=== PATIENT | female | born 1980 | race Caucasian/White ===

== ENCOUNTER → 2019-12-04 18:00 | Outpatient (CLI) | payer MEDICARE, MEDICAID, SELFPAY | PROVIDERS: Visit Provider Nurse Practitioner Family | DX: N39.0 Urinary tract infection, site not specified (principal) | CPT/HCPCS: 87086; 87088; 87186 ==

== ENCOUNTER 2020-07-10 18:34 | Emergency (ER) | payer MEDICARE, MEDICAID, SELFPAY ==
[2020-07-10 18:47] VITALS: BP 106/74; PULSE 95; RESP 15; O2SAT 97; BMI 51.5
[2020-07-10 19:41] VITALS: BP 106/74; PULSE 95; RESP 15; TEMP 36.7; O2SAT 99; BMI 51.2
--- NOTE | 2020-07-10 19:53 | HMH.EDUTC ---
[facility] [place] Disposition Clinical Impression: Viral syndrome, Encounter for laboratory testing for COVID-19 virus Disposition: Home, Self-Care Condition on Discharge: Good Instructions: Sore Throat, DI for Cough -- Adult, DI for Fever (Symptom) -- Adult, Preventing the Spread of Coronavirus Discharge Instructions Additional Instructions: *Monitor Temp, Over the counter Motrin or Tylenol as directed/as needed Tylenol every 4 hours and Motrin every 6 hours (as long as your family doctor has told you that you can take it) for fever or pain. and straight to ER if unable to lower temp less than 101.0 after medication given *Warm salt water gargles may help to soothe the throat *Throat Lozenges *Warm fluids like tea with honey may help to soothe the throat *Sleep elevated *Humidifier/Vaporizer *Use your inhalers as prescribed Return if needed Follow up IMMEDIATELY for new or worsening symptoms or no Noticeable improvement over the next 48-72 hours. 911 for difficulty breathing or swallowing You was tested for today for COVID19 your test result should be back later this evening, you may call back later this evening to see if your test results are back and the result You was given a handout with instructions for Self Quarantine and Self isolation for while you wait on test results and what to do if they are positive Referrals: Shanda Weaver [Primary Care Provider] - As needed Time of Disposition: 20:27 Medical Decision Making - [place] Inquiry Pt receiving controlled substance: No [place] was queried for this patient: No Vital Signs: 07/10/20 18:47 07/10/20 19:41 Temperature 98.1 F Temperature Source Oral Pulse Rate [Right Brachial] 95 H 95 H Respiratory Rate 15 15 Blood Pressure [Right Arm] 106/74 L 106/74 L Blood Pressure Mean [Right Arm] 84 84 Blood Pressure Source [Right Arm] Automatic Cuff Automatic Cuff Blood Pressure Position [Right Arm] Sitting Sitting 02 Sat by Pulse Oximetry 97 99 Oxygen Delivery Method Room Air Room Air [facility] HPI - General Stated complaint: Headache, sob, cough, sore throat Time Seen by Provider: 07/10/20 19:53 Mode of Arrival: Ambulatory Source of Information: Patient Limitations: No Limitations Description of Symptoms (Recalled from Triage Doc. by RN): sore throat and fever x 2 days; diarrhea and cough, shortness of air; pt expresses desire to be tested for covid HEENT Symptoms (Recalled from RN notes): Yes Resp Symptoms (Recalled from RN notes): No Skin Symptoms (Recalled from RN notes): No MS Symptoms (Recalled from RN notes): No Functional Status (Recalled from RN notes): wnl - History of Present Illness Provider Complaint: Patient states that she hasnt been feeling well for a couple of days States that she has been having cough, nasal congestion, sore throat fever diarrhea and body aches along with feeling SOA at times with coughing State that she has a history of COPD and Asthma and not sure if that may be causing her shortness of air States that she is concerned and wanted to be tested for COVID since boyfriend is having similar symptoms - Related Data Previous Rx's Medication Instructions Recorded cephalexin 500 mg capsule 500 mg PO BID 10 Days #20 cap 12/04/19 ondansetron HCl 4 mg tablet 4 mg PO Q8H PRN #14 tab 12/04/19 Allergies Allergy/AdvReac Type Severity Reaction Status Date / Time Penicillins Allergy Verified 12/04/19 18:20 - Worker's Comp Is this a Worker's Comp case?: No [facility] History - Hepatitis A Screen Drug use history?: No High risk sexual behaviors?: No History of sexually transmitted infection?: No Currently employed?: No Childcare worker?: No Do you have indoor plumbing?: Yes Do you have electricity?: Yes Attestation statement:: This patient has been screened for Hepatitis A risk factors. I have reviewed the patient's past medical history: Yes Medical History: Reports:: Diabetes Mellitus Type 2 Other Surgeries: Yes: No Previous Surge
[2020-07-10 20:33] VITALS: BP 106/74; PULSE 95; RESP 15; TEMP 36.7; O2SAT 99
[2020-07-10 21:11] LABS: UTC Strep Screen (Rapid) Negative (Negative)
[2020-07-10 21:18] LABS: Adenovirus,PCR Not Detected (NotDetected); Bordetella Pertussis Not Detected (NotDetected); Chlamydophila Pneumoniae, PCR Not Detected (NotDetected); Coronavirus 19, PCR Not Detected (NotDetected); Coronavirus 229E Not Detected (NotDetected); Coronavirus NL63 Not Detected (NotDetected); Coronavirus OC43 Not Detected (NotDetected); Coronovirus HKU1,PCR Not Detected (NotDetected); Human Metapneumovirus Not Detected (NotDetected); Influenza A, PCR Not Detected (NotDetected); Influenza AH1, 2009 Not Detected (NotDetected); Influenza AH1, PCR Not Detected (NotDetected); Influenza AH3,PCR Not Detected (NotDetected); Influenza B, PCR Not Detected (NotDetected); Mycoplasma Pneumoniae, PCR Not Detected (NotDetected); Parainfluenza 1, PCR Not Detected (NotDetected); Parainfluenza 2, PCR Not Detected (NotDetected); Parainfluenza 3, PCR Not Detected (NotDetected); Parainfluenza 4, PCR Not Detected (NotDetected); Respiratory Syncytial Virus Not Detected (NotDetected); Rhinovirus/Enterovirus Not Detected (NotDetected)
== END 2020-07-10 20:34 | disposition home or self-care (01) ==
PROVIDERS: Nurse Practitioner; Emergency Provider Emergency Medicine; PCP Family Medicine
DX: Z20.828 Contact with and (suspected) exposure to other viral communicable diseases (principal); B34.9 Viral infection, unspecified
CPT/HCPCS: G0463; 87581; 87633; 87798; 87880; 99202; U0003

== ENCOUNTER 2021-07-09 18:07 | Emergency (ER) | payer MEDICARE, SELFPAY ==
[2021-07-09 18:15] VITALS: PULSE 78; RESP 16; TEMP 37; O2SAT 100; BMI 45.4
[2021-07-09 18:18] VITALS: BP 138/89; PULSE 78; RESP 16; TEMP 37; O2SAT 100; BMI 45.2
--- NOTE | 2021-07-09 18:34 | HMH.EDUTC ---
[facility] Clinical Impression: Otitis media Qualifiers: Otitis media type: suppurative Chronicity: acute Laterality: left Recurrence: non-recurrent Spontaneous tympanic membrane rupture: without spontaneous rupture Qualified Code(s): H66.002 - Acute suppurative otitis media without spontaneous rupture of ear drum, left ear Disposition: Home, Self-Care Condition on Discharge: Good Instructions: Middle Ear Infections (Alternative Therapy) Additional Instructions: Start antibiotic as soon as possible and be sure to take as ordered for full length of time even though he should start feeling better in 24-48 hours. Tylenol or Motrin as needed for pain or fever Encourage fluids, water, Gatorade, Powerade, Pedialyte if infant/toddler/child Warm compresses often helps when placed over ear Return immediately for new or worsening symptoms no noticeable improvement in 48-72 hours and in 10-14 days to ensure the ears are return to baseline. Follow-up with primary care Prescriptions: cephALEXin [Cephalexin 500mg Tab] 500 mg PO BID 7 Days #14 tab Transmission Status: Pending to [facility] Referrals: Shanda Hardy [Primary Care Provider] - Time of Disposition: 18:44 Medical Decision Making - [place] Inquiry Pt receiving controlled substance: No Vital Signs: 07/09/21 18:15 07/09/21 18:18 Temperature 98.6 F 98.6 F Temperature Source Oral Oral Pulse Rate [Right] 78 78 Respiratory Rate 16 16 Blood Pressure [Right Arm] 138/89 Blood Pressure Mean [Right Arm] 105 Blood Pressure Source [Right Arm] Automatic Cuff Blood Pressure Position [Right Arm] Sitting 02 Sat by Pulse Oximetry 100 100 Oxygen Delivery Method Room Air [facility] HPI - General Chief complaint: Urgent [facility] Stated complaint: dental surgery 06/30 ear pain left ear Time Seen by Provider: 07/09/21 18:34 Mode of Arrival: Ambulatory Source of Information: Patient Limitations: No Limitations Description of Symptoms (Recalled from Triage Doc. by RN): pt advises she thinks she has a left ear infection. She had two teeth pulled on06/30 HEENT Symptoms (Recalled from RN notes): Yes (earache) Resp Symptoms (Recalled from RN notes): No Skin Symptoms (Recalled from RN notes): No MS Symptoms (Recalled from RN notes): No Functional Status (Recalled from RN notes): n/a - History of Present Illness Provider Complaint: 40 yr old female presnets for left ear pain. pt states she had two teeth pulled on the 12th and now is having ear pain. hx of ear infections - Related Data Previous Rx's Medication Instructions Recorded cephalexin 500 mg capsule 500 mg PO BID 10 Days #20 cap 12/04/19 ondansetron HCl 4 mg tablet 4 mg PO Q8H PRN #14 tab 12/04/19 cephALEXin [Cephalexin 500mg Tab] 500 mg PO BID 7 Days #14 tab 07/09/21 Allergies Allergy/AdvReac Type Severity Reaction Status Date / Time Penicillins Allergy Verified 12/04/19 18:20 - Worker's Comp Is this a Worker's Comp case?: No [facility] History - Hepatitis A Screen Drug use history?: No High risk sexual behaviors?: No History of sexually transmitted infection?: No Currently employed?: No Childcare worker?: No Do you have indoor plumbing?: Yes Do you have electricity?: Yes Attestation statement:: This patient has been screened for Hepatitis A risk factors. I have reviewed the patient's past medical history: Yes Medical History: Reports:: Diabetes Mellitus Type 2 Other Surgeries: Yes: No Previous Surgery Amputation: No Fractures: No - Social History Smoking Status: Current every day smoker # Packs/Day (cigarettes): 1 Alcohol Intake: never Substance Use Type: methamphetamine Occupational Status: other Housing: apartment Household Members: other Family Hx:: No significant family history ROS Obtained: Yes Systems reviewed as appropriate & no additional complaints - Constitutional Constitutional: Reports system reviewed and no additional complaints, except as Sudheer krishnan
[2021-07-09 18:52] VITALS: BP 138/89; PULSE 78; RESP 16; TEMP 37; O2SAT 100
== END 2021-07-09 18:53 | disposition home or self-care (01) ==
PROVIDERS: Emergency Provider Nurse Practitioner Family; PCP Family Medicine
DX: H66.002 Acute suppurative otitis media without spontaneous rupture of ear drum, left ear (principal); E11.9 Type 2 diabetes mellitus without complications; F17.210 Nicotine dependence, cigarettes, uncomplicated
CPT/HCPCS: 99202; G0463

== ENCOUNTER 2021-10-11 17:35 | Emergency (ER) | payer MEDICARE, SELFPAY ==
[2021-10-11 18:52] VITALS: BP 126/60; PULSE 82; RESP 20; TEMP 36.8; O2SAT 99; BMI 44.6
[2021-10-11 18:55] LABS: UTC Influenza A Antigen Negative (Negative); UTC Influenza B Antigen Negative (Negative)
--- NOTE | 2021-10-11 19:01 | HMH.EDUTC ---
[facility] [place] Clinical Impression: Otitis media Qualifiers: Otitis media type: unspecified Laterality: left Qualified Code(s): H66.92 - Otitis media, unspecified, left ear Disposition: Home, Self-Care Condition on Discharge: Good Instructions: Middle Ear Infection, Cephalexin Additional Instructions: *Monitor Temp, Over the counter Motrin or Tylenol as directed/as needed Tylenol every 4 hours and Motrin every 6 hours (as long as your family doctor has told you that you can take it) for fever or pain. and straight to ER if unable to lower temp less than 101.0 after medication given *Warm salt water gargles may help to soothe the throat *Throat Lozenges *Warm fluids like tea with honey may help to soothe the throat *Sleep elevated *Humidifier/Vaporizer Follow up IMMEDIATELY for new or worsening symptoms or no Noticeable improvement over the next 48-72 hours. 911 for difficulty breathing or swallowing You were tested for today for COVID19 your test result should be back in the next 24-48 hours, you may check your results on the [facility] [employer] [facility] Portal if you have trouble logging on you may call [employer] support for assistance You was given a handout with instructions for Self Quarantine and Self isolation for while you wait on test results and what to do if they are positive Make sure to take your Vitamins Vit. C Vit D and Zinc if you can take them Prescriptions: cephALEXin [cephALEXin 500mg capsule*] 500 mg PO Q8H 7 Days #21 cap Transmission Status: Pending to [facility] Referrals: Shanda Weaver [Primary Care Provider] - As needed Time of Disposition: 19:15 Medical Decision Making - [place] Inquiry Pt receiving controlled substance: No [place] was queried for this patient: No Vital Signs: 10/11/21 18:52 Temperature 98.2 F Temperature Source Oral Pulse Rate [Left] 82 Respiratory Rate 20 Blood Pressure [Right Arm] 126/60 Blood Pressure Mean [Right Arm] 82 02 Sat by Pulse Oximetry 99 - Lab Data Lab results reviewed: Yes: I reviewed the patient's lab results. Lab Results 10/11/21 18:41: Influenza Type A Ag Negative, Influenza Type B Ag Negative Orders (Tests/Meds): ORDERS Category Date Time Status Covid-19 Nasal PCR ([facility]) Routine Lab 10/11/21 18:41 Ordered Medical Decision Narrative: patient states that she has taken cephalexin in the past without reactions or complication even though allergic to PCN [facility] HPI - General Stated complaint: sore throat,SOB,LADD,R ear Time Seen by Provider: 10/11/21 19:01 Mode of Arrival: Ambulatory Source of Information: Patient Limitations: No Limitations Description of Symptoms (Recalled from Triage Doc. by RN): PT C/O A COUGH, SORE THROAT, MIGRAINE, BODY ACHES AND LOSS OF TASTE. HEENT Symptoms (Recalled from RN notes): Yes (SORE THROAT, LOSS OF TASTE, LADD) Resp Symptoms (Recalled from RN notes): Yes (COUGH) Skin Symptoms (Recalled from RN notes): No MS Symptoms (Recalled from RN notes): No Functional Status (Recalled from RN notes): WNL - History of Present Illness Provider Complaint: Patient states that she has been having headache, scratchy throat, pain in both ears and loss her sense of taste this morning States that this evening she wasnt feeling any better so she came in to get checked and tested for COVID - Related Data Previous Rx's Medication Instructions Recorded cephalexin 500 mg capsule 500 mg PO BID 10 Days #20 cap 12/04/19 ondansetron HCl 4 mg tablet 4 mg PO Q8H PRN #14 tab 12/04/19 cephALEXin [Cephalexin 500mg Tab] 500 mg PO BID 7 Days #14 tab 07/09/21 cephALEXin [cephALEXin 500mg 500 mg PO Q8H 7 Days #21 cap 10/11/21 capsule*] Allergies Allergy/AdvReac Type Severity Reaction Status Date / Time Penicillins Allergy Verified 12/04/19 18:20 Sulfa (Sulfonamide Allergy Verified 10/11/21 18:58 Antibiotics) HAZAR Allergy Uncoded 10/11/21 18:58 - Worker's Comp Is this a Worker's Comp case?: No
[2021-10-11 19:24] VITALS: BP 126/60; PULSE 82; RESP 20; TEMP 36.8
== END 2021-10-11 19:26 | disposition home or self-care (01) ==
PROVIDERS: Emergency Provider Nurse Practitioner; PCP Family Medicine
DX: H66.92 Otitis media, unspecified, left ear (principal); J02.9 Acute pharyngitis, unspecified; Z20.822 Contact with and (suspected) exposure to COVID-19; F17.210 Nicotine dependence, cigarettes, uncomplicated; Z88.0 Allergy status to penicillin; Z88.2 Allergy status to sulfonamides
CPT/HCPCS: G0463; 87804; 99202; C9803; U0003; U0005

== ENCOUNTER 2022-07-10 18:47 | Inpatient (IN) | payer MEDICARE, MEDICAID, SELFPAY ==
[2022-07-10 18:47] VITALS: BP 140/119; PULSE 118; RESP 18; TEMP 37.2; O2SAT 97; BMI 49.2
--- NOTE | 2022-07-10 19:07 | XR_ITS ---
PROCEDURE INFORMATION: Exam: XR Chest Exam date and time: 07/10/2022 7:41 PM Age: 41 years old Clinical indication: Other: Epigastric pain; Additional info: Upper gastric pain TECHNIQUE: Imaging protocol: Radiologic exam of the chest. Views: 2 views. COMPARISON: CR XR CHEST 2V 10/14/2019 12:04 AM FINDINGS: Lungs: Unremarkable. No consolidation. Pleural spaces: Unremarkable. No pleural effusion. No pneumothorax. Heart/Mediastinum: Unremarkable. No cardiomegaly. Bones/joints: Unremarkable. IMPRESSION: No acute findings.
--- NOTE | 2022-07-10 19:07 | CT_ITS ---
PROCEDURE INFORMATION: Exam: CT Abdomen And Pelvis With Contrast Exam date and time: 07/10/2022 7:49 PM Age: 41 years old Clinical indication: Abdominal pain; Generalized; Additional info: Abdominal pain epigastric and generalized abdomen pain TECHNIQUE: Imaging protocol: Computed tomography of the abdomen and pelvis with contrast. Radiation optimization: All CT scans at this facility use at least one of these dose optimization techniques: automated exposure control; mA and/or kV adjustment per patient size (includes targeted exams where dose is matched to clinical indication); or iterative reconstruction. Contrast material: ISOVUE; Contrast volume: 75 ml; Contrast route: IV; COMPARISON: CT ANGIO CHEST 10/14/2019 1:28 AM FINDINGS: Diaphragm: Small hiatal hernia. Liver: Hepatic steatosis. Hepatomegaly. Gallbladder and bile ducts: Normal. No calcified stones. No ductal dilation. Pancreas: Normal. No ductal dilation. Spleen: Normal. No splenomegaly. Adrenal glands: Normal. No mass. Kidneys and ureters: Normal. No hydronephrosis. Stomach and bowel: Study limited secondary to lack of bowel opacification. Mildly thickened and dilated proximal small bowel loops. Findings suggest changes of enteritis. AP transition zone is demonstrated in the region of the ileum. A developing small bowel obstruction could not be excluded. Appendix: No evidence of appendicitis. Intraperitoneal space: Unremarkable. No free air. No significant fluid collection. Vasculature: Unremarkable. No abdominal aortic aneurysm. Lymph nodes: Unremarkable. No enlarged lymph nodes. Urinary bladder: Unremarkable as visualized. Reproductive: Unremarkable as visualized. Bones/joints: Unremarkable. No acute fracture. Soft tissues: Small fat filled umbilical hernia. IMPRESSION: 1. Mildly thickened and dilated proximal small bowel loops. Findings suggest changes of enteritis. 2. Superimposed demonstration of a transition zone in the region of the ileum. A developing small bowel obstruction is suggested.
--- NOTE | 2022-07-10 19:07 | ECG_ITS ---
APPROVED REPORT Exam: Resting ECG HR:114 bpm ECG Measurements Heart Rate 114 AXES OK 132 P 55 QRSd 97 QRS 55 QT 312 T 76 QTc 380 Conclusion SINUS TACHYCARDIA ABNORMAL RHYTHM ECG UNCONFIRMED REPORT Electronically signed by : Elils Wooten MD 07/11/2022 14:53:50
[2022-07-10 19:20] LABS: Basophils # 0.1 K/mm3 (0-0.2); Basophils % 0.4 % (0.1-2.0); Eosinophils # 0.2 K/mm3 (0.0-0.4); Eosinophils % 0.9 % (0.1-12.0); Hemoglobin 14.3 g/dL (12.2-16.2); Mean Corpuscular HGB Conc 33.2 g/dL (31.8-35.4); Mean Corpuscular Hemoglobin 29.3 pg (27.0-31.2); Mean Corpuscular Volume 88.3 fl (81-99); Mean Platelet Volume 9.6 fl (7.4-10.4); Monocytes # 0.4 K/mm3 (0.1-1.0); Monocytes % 2.1 % (1.7-9.3); Neutrophils # 18.3 K/mm3 (1.8-7.8); Neutrophils % 91.6 % (37.0-80.0); Platelet Count 236 K/mm3 (142-424); Red Blood Count 4.87 M/mm3 (4.20-5.40); Red Cell Distribution Width 14.5 % (11.5-17.5); White Blood Count 19.9 K/mm3 (4.8-10.8)
[2022-07-10 19:25] LABS: MANUAL DIFFERENTIAL MANUAL DIFFERENTIAL (MANUAL DIFF)
--- NOTE | 2022-07-10 19:25 | HMH.EDGENADL ---
Discharge Plan Disposition Patient Disposition: Admitted As Inpatient Condition: Fair Clinical Impressions Clinical Impression: Abdominal pain, Diarrhea, Enteritis Discharge ED Provider: Alfredo Miles General Adult HPI <Esau Lim MD - Last Filed: 07/10/22 19:51> General Chief complaint: Abdominal Pain Stated complaint: Chest Pain Time Seen by Provider: 07/10/22 19:21 Mode of Arrival: Wheelchair Source of Information: Patient Limitations: No Limitations Description of Symptoms (Recalled from ER Triage Doc. by RN): c/o upper gastric pain with all over abdominal pain, n/v since last night at 9 am History of Present Illness HPI narrative: Patient states she has a 24-hour history of diffuse abdominal pain associated with vomiting. Difficulty starting her urinary stream. Diffuse low back pain. Watery diarrhea which is clear in color. Denies fever. States that she has a prior history of a kidney stone and thinks she has a kidney stone now. Her kidney stone was 10+ years ago and she says she passed it spontaneously without intervention. Denies prior abdominal surgeries. Related Data Previous Rx's Medication Instructions Recorded cephalexin 500 mg capsule (Keflex) 500 mg PO BID 10 days #20 caps 12/04/19 ondansetron HCl 4 mg tablet 4 mg PO Q8H PRN nausea and 12/04/19 (Zofran) vomiting #14 tabs cephalexin 500 mg tablet 500 mg PO BID 7 days #14 tabs 07/09/21 cephalexin 500 mg capsule 500 mg PO Q8H 7 days #21 caps 10/11/21 Allergies Allergy/AdvReac Type Severity Reaction Status Date / Time Penicillins Allergy Verified 12/04/19 18:20 Sulfa (Sulfonamide Allergy Verified 10/11/21 18:58 Antibiotics) HAZAR Allergy Uncoded 10/11/21 18:58 PFSH <Esau Lim MD - Last Filed: 07/10/22 19:51> PFSH Social History Smoking Status: Current every day smoker second hand exposure: No alcohol intake: never substance use type: methamphetamine current occupational status: other Travel in the last 8 weeks: None household members: other housing: apartment <Esau Lim MD - Last Filed: 07/10/22 19:51> ROS Obtained: Yes Systems reviewed as appropriate & no additional complaints except as documented Constitutional Constitutional: Denies fever(s), Denies headache(s) and Denies weakness ENT Ears, Nose, Mouth, and Throat: Denies headache(s), Denies nasal discharge and Denies sore throat Cardiovascular Cardiovascular: Denies chest pain Respiratory Respiratory: Denies shortness of breath and Denies cough Gastrointestinal Gastrointestingal: Reports abdominal pain, diarrhea, nausea and vomiting; Denies constipation Genitourinary Female Genitourinary: Reports difficulty voiding and Denies dysuria Musculoskeletal Musculoskeletal: Reports back pain and Denies numbness Neurologic Neurologic: Denies headache(s), Denies numbness and Denies weakness Physical Exam <Esau Lim MD - Last Filed: 07/10/22 19:51> General General appearance: alert and anxious Head Head exam: atraumatic and normocephalic Eye Eye exam: Present normal appearance and EOMI ENT ENT exam: Present mucous membranes moist Neck Neck exam: Present normal inspection and trachea midline Chest Chest inspection: Present normal inspection and symmetric chest wall rise Respiratory Respiratory exam: Present normal lung sounds bilaterally; Absent respiratory distress Cardiovascular Cardiovascular exam: Present normal rhythm, tachycardia and normal heart sounds Abdominal Exam Abdominal exam: Present soft, tenderness and normal bowel sounds; Absent distention, guarding, rebound or rigidity Abdominal tenderness: Present diffuse Extremities Exam Extremities exam: Present normal inspection Back Exam Back exam: Absent CVA tenderness (R) or CVA tenderness (L) Neurological Exam Neurological exam: Present alert and oriented X3 Psychiatric Psychiatric exam: Present anxious Skin Skin exam: Present warm and dry Medical Decision Making <Kota
[2022-07-10 19:26] LABS: Alanine Aminotransferase 41 U/L (12-78); Albumin Level 4.6 g/dl (3.5-5.0); Albumin/Globulin Ratio 1.2 (1.1-1.8); Alkaline Phosphatase 64 U/L (38-126); Amylase 47 U/L (30-110); Anion Gap 23.6 mEq/L (5-15); Aspartate Amino Transferase 44 U/L (14-36); Bilirubin,Total 0.7 mg/dl (0.2-1.3); Blood Urea Nitrogen 10 mg/dl (7-17); Calcium 9.1 mg/dl (8.4-10.2); Carbon Dioxide 19 mmol/L (22.0-30.0); Chloride 97 mmol/L (98-107); Creatinine Clearance Estimated 117 mL/min (50-200); Estimated Glomerular Filt Rate 111 ml/min (>60); GFR (African American) 134 ML/MIN (>60); Globulin 3.9 g/dL (1.3-3.2); Glucose 247 mg/dl (74-100); Lipase 28 U/L (23-300); Potassium 3.6 mmoL/L (3.5-5.1); Sodium 136 mmol/L (136-145); Total Protein,Serum 8.5 g/dl (6.3-8.2)
[2022-07-10 19:33] LABS: Lymphocytes % 8 % (10-50); Neutrophils % 73 % (42-76); Platelet Estimate Normal; RBC Morphology Normal; Total Cells Counted 100
[2022-07-10 19:44] LABS: HCG Qualitative, Serum Negative (Negative)
[2022-07-10 19:47] LABS: Adenovirus F 40/41, stool Not Detected (NotDetected); Astrovirus Not Detected (NotDetected); Campylobacter Not Detected (NotDetected); Clostridium Difficile A/B, PCR Not Detected (NotDetected); Cryptosporidium Not Detected (NotDetected); Cyclospora Cayetanesis Not Detected (NotDetected); Entamoeba histolytica Not Detected (NotDetected); Enteropathogenic E coli Not Detected (NotDetected); Enterotoxigenic E coli Not Detected (NotDetected); Giardia lamblia Not Detected (NotDetected); Norovirus Not Detected (NotDetected); Plesimonas Shigalloides, PCR Not Detected (NotDetected); Rotavirus A Not Detected (NotDetected); Salmonella, PCR Not Detected (NotDetected); Sapovirus Not Detected (NotDetected); Shiga-like toxin E coli Not Detected (NotDetected); Shigella Enterovasive E coli Not Detected (NotDetected); Vibrio Cholerae Not Detected (NotDetected); Vibrio, PCR Not Detected (NotDetected); Yersinia Entercolitica, PCR Not Detected (NotDetected)
--- NOTE | 2022-07-10 21:06 | PC.NURSE ---
Dr. Monahan paged
--- NOTE | 2022-07-10 21:07 | PC.NURSE ---
Dr. Miles speaking with Dr. Monahan
[2022-07-10 21:52] LABS: Enteroaggregative E coli Detected (NotDetected)
[2022-07-10 22:00] VITALS: BP 93/67; PULSE 104; RESP 16; O2SAT 97
--- NOTE | 2022-07-10 22:05 | XR_ITS ---
PROCEDURE INFORMATION: Exam: XR Chest Exam date and time: 07/10/2022 11:20 PM Age: 41 years old Clinical indication: Device placement; Ng tube; Additional info: Ng tube placement confirmation TECHNIQUE: Imaging protocol: Radiologic exam of the chest. Views: 1 view. Total images: 2 COMPARISON: CR Chest 07/10/2022 7:41 PM FINDINGS: Lungs: Unremarkable. No consolidation. Pleural spaces: Unremarkable. No pleural effusion. No pneumothorax. Heart/Mediastinum: Unremarkable. No cardiomegaly. Vasculature: The enteric catheter identified overlying the upper mediastinum but cannot be visualized beyond the level of the aortic arch, related to body habitus. Tip of the catheter is not seen. Bones/joints: Unremarkable. IMPRESSION: Enteric catheter identified overlying the upper mediastinum but cannot be visualized beyond the level of the aortic arch, related to body habitus. Tip of the catheter is not seen.
[2022-07-10 22:25] LABS: Microscopic, Urine URINE MICROSCOPIC (MICROSCOPIC)
[2022-07-10 22:26] LABS: Appearance,Urine CLEAR (Clear); Blood, Urine 3+ (Negative); Color,Urine YELLOW (Yellow); Glucose,Urine (UA) Negative (Negative); Ketones,Urine Negative (Negative); Leukocyte Esterase,Urine Negative (Negative); Nitrate,Urine Negative (Negative); Protein,Urine 3+ (Negative); Specific Gravity, Urine 1.025 (1.005-1.030); Urobilinogen,Urine 0.2 EU/dl (0.2)
[2022-07-10 22:31] LABS: Bilirubin,Urine 1+ (Negative)
[2022-07-10 22:33] LABS: Lactic Acid 3.1 mmol/L (0.7-2.1)
[2022-07-10 22:37] LABS: Bacteria,Urine Trace /lpf; Barbiturates Screen,Urine Negative ng/ml (<200); WBC,Urine Occasional #/hpf (0-3)
[2022-07-10 22:38] LABS: Benzodiazepines Screen,Urine Negative ng/ml (<200)
[2022-07-10 22:39] LABS: Amphetamine/Metha Screen,Urine Negative ng/ml (<1000); Cannabinoid Screen,Urine Positive ng/ml (<50)
[2022-07-10 22:40] LABS: Cocaine Screen,Urine Negative ng/ml (<300); Methadone Screen,Urine Negative ng/ml (<300)
[2022-07-10 22:41] LABS: Opiate Screen,Urine Positive ng/ml (<300)
[2022-07-10 22:42] LABS: Phencyclidine Screen,Urine Negative ng/ml (<25)
--- NOTE | 2022-07-10 22:44 | EXP.HP ---
History of Present Illness *Admission Date: 07/10/22 *Reason for visit:: Abdominal Pain, Nausea, Vomiting *History of present illness: Ms. Diamond Hamlin is a 41-year-old female with a reported past medical history that is positive for Diabetes Mellitus, Restless Leg Syndrome, GERD, Hypertension and Anxiety Disorder. She presents to [facility] with a 1 day history of severe abdominal pain associated with nausea, vomiting and diarrhea that she reports started the prior day around 9:30 pm at night. The patient was seen on admission in the ER, her significant other was at bedside. She reports that in addition to these symptoms she also had body aches and chills. She does not recall when she had a normal bowel movement prior to the symptoms, she reports issues with chronic constipation. She denies taking any narcotics. She does report that she smokes THC daily secondary to chronic pain. In the ER, CT of the abdomen and pelvis obtained showed a transition zone at the region of the ileum and mildly thickened and dilated small bowel loops. WBC showed an elevated WBC at 19.9. CMP was unremarkable. Stool studies were positive for E. coli. The patient will be admitted with initial impression: SBO and Enteritis. Surgery has been consulted in the ER. The patient has an NGT to LWS with significant yellow colored/bile looking fluid in canister. She will be placed on antibiotics. She will continue NPO status. The plan of care was discussed with the patient and her on admission. Both verbalized understanding and agreement with the plan of care. [facility] Medical History (Updated 07/11/22 @ 00:46 by Zayra Gaston RN) Carpal tunnel syndrome Diabetes mellitus, type 2 Family History (Updated 07/11/22 @ 00:46 by Zayra Gaston RN) Family history of cancer Social History (Updated 07/11/22 @ 00:46 by Zayra Gaston RN) Smoking Status: Current every day smoker second hand exposure: No alcohol intake: never substance use type: methamphetamine current occupational status: other Travel in the last 8 weeks: None household members: other housing: apartment Review of Systems Review of Systems Review of systems:: pertinent systems reviewed and negative unless documented below Constitutional Constitutional: Reports body ache(s) and Reports chills Eyes Eyes: Reports system reviewed and no additional complaints, except as documented ENT Ears, Nose, Mouth, and Throat: Reports system reviewed and no additional complaints, except as documented *Cardiovascular Cardiovascular: Reports system reviewed and no additional complaints, except as documented *Respiratory Respiratory: Reports system reviewed and no additional complaints, except as documented *Gastrointestinal Gastrointestinal: Reports abdominal pain, Reports change in stool character, Reports constipation, Reports diarrhea, Reports nausea and Reports vomiting *Genitourinary Genitourinary: Reports dysuria and Reports urinary hesitancy *Musculoskeletal Musculoskeletal: Reports muscle weakness and Reports myalgias Integumentary/Breasts Skin/Breast: Reports system reviewed and no additional complaints, except as documented *Neurologic Neurologic: Reports system reviewed and no additional complaints, except as documented Psychiatric Psychiatric: Reports system reviewed and no additional complaints, except as documented Endocrine Endocrine: Reports system reviewed and no additional complaints, except as documented Hematologic/Lymphatic Hematologic/Lymphatic: Reports system reviewed and no additional complaints, except as documented Allergic/Immunologic Allergic/Immunologic: Reports system reviewed and no additional complaints, except as documented Meds Home Medications and Allergies Home Medications Medication Instructions Recorded Confirmed Type amitriptyline 25 mg tablet 25 - 75 mg PO HS Insomnia 07/10/22 07/10/22 History budesonide-formo
[2022-07-10 23:06] VITALS: BP 125/71; PULSE 106; RESP 13; O2SAT 94
[2022-07-10 23:09] LABS: Coronavirus 19, PCR Not Detected (NotDetected); Influenza A, PCR Not Detected (NotDetected); Influenza B, PCR Not Detected (NotDetected)
--- NOTE | 2022-07-10 23:14 | PC.NURSE ---
RAD at BS for Xray to confirm NG tube placement
[2022-07-10 23:18] VITALS: BP 125/71; PULSE 105; RESP 18; TEMP 36.8; O2SAT 96
[2022-07-10 23:30] VITALS: BP 112/66; PULSE 100; RESP 33; O2SAT 95
[2022-07-11] VITALS (7 sets, daily range): BP systolic 133–176; BP diastolic 70–112; PULSE 80–116; RESP 16–20; TEMP 36.6–37.1; O2SAT 94–98; BMI 46.4
--- NOTE | 2022-07-11 00:12 | PC.NURSE ---
PT ARRIVED TO FLOOR VIA WHEEL CHAIR AT THIS TIME
[2022-07-11 02:20] LABS: Reflex Lactic Add Lactic Reflex
[2022-07-11 02:45] LABS: Lactic Acid Follow Up (RFLX 1) 1.6 mmol/L (0.7-2.1)
[2022-07-11 05:01] LABS: POC Glucose,Bedside 142 (70-110)
--- NOTE | 2022-07-11 07:26 | EXP.ACUTE.PN ---
Subjective *Date: 07/11/22 *Time: 13:08 Interval history: Patient states she is feeling better on rounds this morning. No more nausea or vomiting since placement of NG tube. Still having some abdominal discomfort however. Ambulating to the bathroom as she is having diarrhea. Afebrile. Denies shortness of breath, chest pain, headache, confusion. No blood in stool. Minimal blood/streaking in NG. Medical Exam Vital signs and Labs for Last 24 Hours: Vital Signs Temp Pulse Pulse Resp BP BP Pulse Ox 07/11/22 03:47 97.8 F 116 H 20 160/90 H 95 07/11/22 00:12 98.1 F 104 H 20 156/97 H 94 L 07/10/22 23:30 100 H 33 H 112/66 95 07/10/22 23:06 106 H 13 125/71 94 L 07/10/22 23:18 98.2 F 105 H 18 125/71 07/10/22 22:00 104 H 16 93/67 L 97 07/10/22 18:47 98.9 F 118 H 18 140/119 H 97 Intake and Output 07/10/22 07/10/22 07/11/22 15:59 23:59 07:59 Output Total 0 / 0 Balance 0 / 0 Output: Output, Urine Amount 0 / 0 Other: Number of Unmeasured Voids 0 Weight 138.346 kg 131.117 kg Patient Weight 07/11/22 23:59 Weight 131.117 kg Laboratory Results - last 24 hr 07/10/22 18:50: WBC 19.9 H, RBC 4.87, Hgb 14.3, Hct 43.0, MCV 88.3, MCH 29.3, MCHC 33.2, RDW 14.5, Plt Count 236, MPV 9.6, Neut % (Auto) 91.6 H, Lymph % (Auto) 5.0 L, [place] % (Auto) 2.1, Eos % (Auto) 0.9, Baso % (Auto) 0.4, Neut # (Auto) 18.3 H, Lymph # (Auto) 1.0, [place] # (Auto) 0.4, Eos # (Auto) 0.2, Baso # (Auto) 0.1, Total Counted 100, Neutrophils % (Manual) 73, Band Neutrophils % 19.0 H, Lymphocytes % (Manual) 8 L, Platelet Estimate Normal, RBC Morphology Normal 07/10/22 18:50: Sodium 136, Potassium 3.6, Chloride 97 L, Carbon Dioxide 19 L, Anion Gap 23.6 H, BUN 10, Creatinine 0.60, Estimated Creat Clear 117, Estimated GFR 111, Est GFR ( Amer) 134, Glucose 247 H, Calcium 9.1, Total Bilirubin 0.7, AST 44 H, ALT 41, Alkaline Phosphatase 64, Total Protein 8.5 H, Albumin 4.6, Globulin 3.9 H, Albumin/Globulin Ratio 1.2, Amylase 47, Lipase 28 07/10/22 18:50: Serum HCG, Qual Negative 07/10/22 19:40: Stl Aeromonas (PCR) Not detected, Stl C. cayetanensis PCR Not detected, Stool Rotavirus (PCR) Not detected, Stl Adenov F 40/41 PCR Not detected, Stool Astrovirus (PCR) Not detected, Stool Campylobacter PCR Not detected, Stl C.difficile Tox PCR Not detected, Stool Cryptosporidium PCR Not detected, Stl E.coli Shiga Tox PCR Not detected, Stool E coli O157 PCR Not detected, Stl Enterotoxigenic E PCR Not detected, Stool EPEC (PCR) Not detected, Stool EAEC (PCR) Detected A, Stl E. histolytica PCR Not detected, Stool Giardia Lamblia PCR Not detected, Stool Salmonella PCR Not detected, Stool Sapovirus (PCR) Not detected, Stl P. shigelloides PCR Not detected, Stl Shigella/EIEC PCR Not detected, St Y.enterocolitica PCR Not detected, Stool Vibrio (PCR) Not detected, Stl Vibrio cholerae PCR Not detected, Stl Norovirus GI/GII PCR Not detected 07/10/22 21:43: SARS-CoV-2 (PCR) Not detected, Influenza A Untype (PCR) Not detected, Influenza Type B (PCR) Not detected 07/10/22 22:00: Lactate 3.1 H 07/10/22 22:15: Urine Color Yellow, Urine Appearance Clear, Urine pH 6.0, Ur Specific [place] 1.025, Urine Protein 3+, Urine Glucose (UA) Negative, Urine Ketones Negative, Urine Blood 3+, Urine Nitrate Negative, Urine Bilirubin 1+ A, Urine Urobilinogen 0.2, Ur Leukocyte Esterase Negative, Urine RBC 10-20, Urine WBC Occasional, Ur Squamous Epith Cells 3-5, Urine Bacteria Trace 07/10/22 22:15: Urine Opiates Screen Positive H, Urine Methadone Screen Negative, Ur Barbituates Screen Negative, Ur Phencyclidine Scrn Negative, Ur Amphetamines Screen Negative, U Benzodiazepines Scrn Negative, Urine Cocaine Screen Negative, U Marijuana (THC) Screen Positive H 07/11/22 02:30: Lactate 1.6 07/11/22 04:47: POC Glucose 142 H I & O for Labs for Last 24 Hours: Intake & Output 07/08/22 07/09/22 07/10/22 07/11/22 23:59 23:59 23:59 23:59 Output Total 0 / 0 Balance
--- NOTE | 2022-07-11 09:27 | HMH.PHAINT1 ---
Pharmacy Intervention Comments: MEDICATION RECONCILIATION COMPLETED ON PATIENT USING EXTERNAL FILL HISTORY FROM PHARMACY. -SHANNAN CHAVEZ, SANDRAD
[2022-07-11 11:17] LABS: POC Glucose,Bedside 138 (70-110)
[2022-07-11 12:29] LABS: Chloride 99 mmol/L (98-107)
[2022-07-11 12:30] LABS: Potassium 3.3 mmoL/L (3.5-5.1); Sodium 142 mmol/L (136-145)
[2022-07-11 12:32] LABS: Alanine Aminotransferase 25 U/L (12-78); Albumin Level 4.1 g/dl (3.5-5.0); Albumin/Globulin Ratio 1.1 (1.1-1.8); Alkaline Phosphatase 61 U/L (38-126); Anion Gap 15.3 mEq/L (5-15); Aspartate Amino Transferase 52 U/L (14-36); Basophils # 0.1 K/mm3 (0-0.2); Basophils % 1.2 % (0.1-2.0); Bilirubin,Total 0.4 mg/dl (0.2-1.3); Blood Urea Nitrogen 17 mg/dl (7-17); Calcium 8.6 mg/dl (8.4-10.2); Carbon Dioxide 31 mmol/L (22.0-30.0); Creatinine Clearance Estimated 100 mL/min (50-200); Eosinophils # 0.1 K/mm3 (0.0-0.4); Eosinophils % 1.6 % (0.1-12.0); Estimated Glomerular Filt Rate 93 ml/min (>60); GFR (African American) 112 ML/MIN (>60); Globulin 3.9 g/dL (1.3-3.2); Glucose 160 mg/dl (74-100); Hematocrit 43.1 % (37.0-47.0); Hemoglobin 13.6 g/dL (12.2-16.2); Lymphocytes # 1.2 K/mm3 (0.7-4.5); Lymphocytes % 14.7 % (10-50); Mean Corpuscular HGB Conc 31.6 g/dL (31.8-35.4); Mean Corpuscular Volume 88.5 fl (81-99); Mean Platelet Volume 9.2 fl (7.4-10.4); Monocytes # 0.3 K/mm3 (0.1-1.0); Neutrophils # 6.6 K/mm3 (1.8-7.8); Neutrophils % 79.6 % (37.0-80.0); Platelet Count 230 K/mm3 (142-424); Red Blood Count 4.88 M/mm3 (4.20-5.40); Red Cell Distribution Width 14.4 % (11.5-17.5); White Blood Count 8.3 K/mm3 (4.8-10.8)
--- NOTE | 2022-07-11 16:00 | PC.NURSE ---
eldridge cath discontinued. NG clamped and suction turned off @ this time to see how pt tolerates. pt is resting in bed @ this time. educated pt on importance of compliance with diet orders
--- NOTE | 2022-07-11 16:01 | PC.NURSE ---
patient had 1 unmeasure
[2022-07-11 16:59] LABS: POC Glucose,Bedside 177 (70-110)
[2022-07-12 03:55] VITALS: BMI 46.7
[2022-07-12 03:56] VITALS: BP 127/67; PULSE 96; RESP 18; TEMP 37.2; O2SAT 94
--- NOTE | 2022-07-12 05:03 | PC.NURSE ---
pt A&OX4. ambulates to bathroom independently. educated multiple times on importance of diet orders, pt continues to be non-compliant. no c/o of nausea or vomiting this shift. NG clamped. c/o pain X2, medicated per mar with favorable results. visitor at bedside. CB in reach
[2022-07-12 06:43] LABS: Basophils % 0.4 % (0.1-2.0); Eosinophils # 0.3 K/mm3 (0.0-0.4); Eosinophils % 3.6 % (0.1-12.0); Hematocrit 39.8 % (37.0-47.0); Hemoglobin 12.5 g/dL (12.2-16.2); Lymphocytes # 1.1 K/mm3 (0.7-4.5); Mean Corpuscular HGB Conc 31.5 g/dL (31.8-35.4); Mean Corpuscular Volume 88.9 fl (81-99); Monocytes # 0.3 K/mm3 (0.1-1.0); Neutrophils # 6.1 K/mm3 (1.8-7.8); Platelet Count 228 K/mm3 (142-424); Red Blood Count 4.48 M/mm3 (4.20-5.40); Red Cell Distribution Width 14.6 % (11.5-17.5); White Blood Count 7.8 K/mm3 (4.8-10.8)
[2022-07-12 06:49] LABS: Chloride 101 mmol/L (98-107); Potassium 3.3 mmoL/L (3.5-5.1); Sodium 137 mmol/L (136-145)
[2022-07-12 06:52] LABS: Alanine Aminotransferase 21 U/L (12-78); Albumin Level 3.5 g/dl (3.5-5.0); Alkaline Phosphatase 63 U/L (38-126); Anion Gap 15.3 mEq/L (5-15); Aspartate Amino Transferase 41 U/L (14-36); Bilirubin,Total 0.4 mg/dl (0.2-1.3); Blood Urea Nitrogen 12 mg/dl (7-17); Calcium 7.8 mg/dl (8.4-10.2); Carbon Dioxide 24 mmol/L (22.0-30.0); Creatinine Clearance Estimated 100 mL/min (50-200); Estimated Glomerular Filt Rate 93 ml/min (>60); GFR (African American) 112 ML/MIN (>60); Globulin 3.6 g/dL (1.3-3.2); Glucose 175 mg/dl (74-100); Total Protein,Serum 7.1 g/dl (6.3-8.2)
[2022-07-12 06:53] LABS: Magnesium 1.6 mg/dl (1.6-2.3)
--- NOTE | 2022-07-12 06:59 | XR_ITS ---
FINAL REPORT CLINICAL HISTORY: bowel obstruction COMPARISON: CT abdomen and pelvis dated 07/10/2022 FINDINGS: A single view of the abdomen was obtained. There is been interval placement of a nasogastric tube with the tip in the stomach antrum. There are scattered air-filled bowel loops in a nonspecific pattern. There is no abnormal calcification. IMPRESSION: Nonspecific bowel gas pattern. Reviewed, Interpreted and Dictated by Satinder Chatman III, MD Transcribed by Nichole Sequeira Authenticated and [facility]
[2022-07-12 07:03] LABS: POC Glucose,Bedside 172 (70-110)
[2022-07-12 07:03] LABS: POC Glucose,Bedside 167 (70-110)
[2022-07-12 08:00] VITALS: BP 147/92; PULSE 94; RESP 16; TEMP 37.5; O2SAT 96
--- NOTE | 2022-07-12 09:33 | DIET.NUTRFU ---
Rounded with Dr. Lang today, upgrade to full liquids with plan to remove NG tube. She is tolerating ice chips. Possible d/c home today with probiotics started, diet advanced and oral ABT tx
[2022-07-12 12:14] LABS: POC Glucose,Bedside 208 (70-110)
--- NOTE | 2022-07-12 13:12 | EXP.DC.SUM ---
General Admission date:: 07/11/22 Discharge date: 07/12/22 HPI HPI HPI: Ms. Diamond Hamlin is a 41-year-old female with a reported past medical history that is positive for Diabetes Mellitus, Restless Leg Syndrome, GERD, Hypertension and Anxiety Disorder. She presents to [facility] with a 1 day history of severe abdominal pain associated with nausea, vomiting and diarrhea that she reports started the prior day around 9:30 pm at night. The patient was seen on admission in the ER, her significant other was at bedside. She reports that in addition to these symptoms she also had body aches and chills. She does not recall when she had a normal bowel movement prior to the symptoms, she reports issues with chronic constipation. She denies taking any narcotics. She does report that she smokes THC daily secondary to chronic pain. In the ER, CT of the abdomen and pelvis obtained showed a transition zone at the region of the ileum and mildly thickened and dilated small bowel loops. WBC showed an elevated WBC at 19.9. CMP was unremarkable. Stool studies were positive for E. coli. The patient will be admitted with initial impression: SBO and Enteritis. Surgery has been consulted in the ER. The patient has an NGT to LWS with significant yellow colored/bile looking fluid in canister. She will be placed on antibiotics. She will continue NPO status. The plan of care was discussed with the patient and her on admission. Both verbalized understanding and agreement with the plan of care. Hospital Course Hospital Course Hospital Course: 41-year-old female with past medical history DM, HTN, GERD, Anxiety Disorder presents with 1 day history of abdominal pain, associated with nausea, vomiting, diarrhea.? Found to have imaging and clinical findings concerning for SBO and Enteritis. Stool tested positive for EHEC. Treated with IV fluids and decompression. Began drinking fluids and eating ice chips even with NG in place. NG was capped and patient has had complete resolution of nausea for over 24 hours. NG removed this morning and patient is tolerated advancement in diet. Has consistently had bowel movements throughout hospitalization. Continually passing gas. Clinically better with symptoms most significant for E. coli enteritis. No longer concern for any obstruction. Problems during hospitalization addressed as follows: Small Bowel Obstruction (POA) E. Coli enteritis - Imaging concerning with CT of the abdomen and pelvis showing a transition zone in the region of the ileum with mildly thickened and dilated small bowel loops. initially an NG was placed with decompression of her stomach. Had resolution of her nausea. Began eating ice chips and drinking fluids even with NG still to suction due to dry mouth. Therefore NG was capped in the first 24 hours. Patient has been tolerating clear liquids for over 24 hours. NG removed this morning with continued tolerance of full liquid diet. Continues to have loose stools. Diarrhea panel positive for EHEC. Initially treated with Levaquin and Flagyl due to severity of symptoms and need for hospitalization. Will de-escalate to only Levaquin and complete 5-day antibiotic course. Started on probiotic. PPI for GI prophylaxis given heartburn symptoms from emesis. Discouraged from taking antidiarrheal medication and drinking or eating dairy products for at least 2 weeks due to risk for transient lactose intolerance. Additionally have sent Bentyl to use as needed for abdominal cramping. Diabetes Mellitus: Placed on SS insulin q6h. resume home regimen at discharge Hypertension: Held antihypertensives during hospitalization due to normal to marginally elevated BP. Recommend resuming in the next week as she feels better. Bipolar: Held psych meds during hospitalization due to intolerance of p.o. intake. Recommend resuming on discharge. Patient is ambulating independently. Afebrile.
--- NOTE | 2022-07-13 12:44 | CARE MANAGER ---
Attempted to contact patient related to hospital discharge. The phone number provided does not work. PATRICK Lynch
== END 2022-07-12 14:58 | disposition home or self-care (01) | DRG 372 ==
LOC: ER 20:06 → 2ND 22:17
PROVIDERS: Emergency Medicine; Admitting Provider Internal Medicine Adolescent Medicine; Emergency Provider Emergency Medicine; Visit Provider Internal Medicine Adolescent Medicine
DX: A04.4 Other intestinal Escherichia coli infections (principal); K56.609 Unspecified intestinal obstruction, unspecified as to partial versus complete obstruction; E86.0 Dehydration; E11.9 Type 2 diabetes mellitus without complications; I10 Essential (primary) hypertension; F31.9 Bipolar disorder, unspecified; F17.210 Nicotine dependence, cigarettes, uncomplicated; G25.81 Restless legs syndrome; Z79.84 Long term (current) use of oral hypoglycemic drugs
CPT/HCPCS: 36415; 51702; 71045; 71046; 74018; 74177; 80053; 80305; 81001; 82150; 82962; 83605; 83690; 83735; 84703; 85007; 85025; 87506; 93005; 99285; C9803; J1956; J2405; Q9967; U0003; U0005

== ENCOUNTER 2022-07-15 11:22 | Inpatient (IN) | payer MEDICARE, MEDICAID, SELFPAY ==
[2022-07-15 11:31] VITALS: BP 188/113; BP 192/94; PULSE 83; PULSE 88; RESP 18; TEMP 36.8; O2SAT 97; O2SAT 98; BMI 35.7
--- NOTE | 2022-07-15 11:40 | PC.NURSE ---
IV established and blood sent to the lab
[2022-07-15 11:45] LABS: Basophils # 0.1 K/mm3 (0-0.2); Basophils % 1.1 % (0.1-2.0); Eosinophils # 0.2 K/mm3 (0.0-0.4); Eosinophils % 2.2 % (0.1-12.0); Hemoglobin 12.9 g/dL (12.2-16.2); Lymphocytes # 1.6 K/mm3 (0.7-4.5); Mean Corpuscular HGB Conc 32.9 g/dL (31.8-35.4); Mean Corpuscular Hemoglobin 28.9 pg (27.0-31.2); Mean Corpuscular Volume 87.7 fl (81-99); Mean Platelet Volume 8.8 fl (7.4-10.4); Monocytes # 0.7 K/mm3 (0.1-1.0); Monocytes % 6.5 % (1.7-9.3); Neutrophils # 8.1 K/mm3 (1.8-7.8); Neutrophils % 75.1 % (37.0-80.0); Platelet Count 317 K/mm3 (142-424); Red Blood Count 4.45 M/mm3 (4.20-5.40); Red Cell Distribution Width 14.9 % (11.5-17.5); White Blood Count 10.8 K/mm3 (4.8-10.8)
[2022-07-15 11:46] LABS: Chloride 101 mmol/L (98-107); Potassium 3.2 mmoL/L (3.5-5.1); Sodium 139 mmol/L (136-145)
[2022-07-15 11:48] LABS: Alanine Aminotransferase 23 U/L (12-78); Alkaline Phosphatase 82 U/L (38-126); Aspartate Amino Transferase 29 U/L (14-36); Bilirubin,Total 0.3 mg/dl (0.2-1.3); Blood Urea Nitrogen 7 mg/dl (7-17); Creatinine Clearance Estimated 230 mL/min (50-200); Estimated Glomerular Filt Rate 137 ml/min (>60); GFR (African American) 165 ML/MIN (>60)
[2022-07-15 11:49] LABS: Albumin Level 3.5 g/dl (3.5-5.0); Anion Gap 19.2 mEq/L (5-15); Calcium 8.5 mg/dl (8.4-10.2); Carbon Dioxide 22 mmol/L (22.0-30.0); Globulin 3.5 g/dL (1.3-3.2); Glucose 255 mg/dl (74-100); Lipase 468 U/L (23-300)
--- NOTE | 2022-07-15 11:49 | HMH.EDGENADL ---
Discharge Plan Disposition Patient Disposition: Admitted as Observation Condition: Fair Chief Complaint: Abdominal Pain Prescriptions Prescriptions: No Action RisaQuad 8 billion cell capsule 1 cap PO DAILY quetiapine 25 mg tablet 25 - 50 mg PO HSP PRN (Reason: Sleep) Label Comments: TAKE 1 TO 2 TABLETS BY MOUTH NIGHTLY NEEDED. carvedilol 12.5 mg tablet 12.5 mg PO BID Label Comments: TAKE 1 TABLET BY MOUTH 2 TIMES DAILY. gabapentin 400 mg capsule 400 mg PO TID sertraline 100 mg tablet 100 mg PO DAILY Label Comments: TAKE 1 TABLET BY MOUTH DAILY. omeprazole 40 mg capsule,delayed release(DR/EC) 40 mg PO DAILY Label Comments: TAKE 1 CAPSULE BY MOUTH EVERY 24 HOURS amitriptyline 25 mg tablet 25 - 75 mg PO HSP PRN (Reason: Sleep) Label Comments: TAKE 1 TO 3 TABLETS BY MOUTH NIGHTLY NEEDED FOR SLEEP. ropinirole 2 mg tablet 4 mg PO HS Label Comments: TAKE 2 TABLETS BY MOUTH NIGHTLY. metformin 1,000 mg tablet 1,000 mg PO BID Label Comments: TAKE 1 TABLET BY MOUTH 2 TIMES DAILY. montelukast 10 mg tablet 10 mg PO PM Label Comments: TAKE ONE TABLET BY MOUTH EVERY EVENING lamotrigine 100 mg tablet 100 mg PO DAILY Label Comments: TAKE 1 TABLET BY MOUTH DAILY. nabumetone 500 mg tablet 500 mg PO DAILY Label Comments: TAKE 1 TABLET BY MOUTH DAILY. rosuvastatin 20 mg tablet 20 mg PO HS Label Comments: TAKE 1 TABLET BY MOUTH NIGHTLY. budesonide-formoterol [Symbicort] 160-4.5 mcg/actuation HFA aerosol inhaler 2 puff INHALATION BID Label Comments: INHALE 2 PUFFS INTO THE LUNGS 2 TIMES DAILY. hydrocodone-acetaminophen 5-325 mg Tablet 1 tab PO Q6HP PRN (Reason: Moderate To Severe Pain) 3 Days Qty: 12 0RF Referrals Follow up/Referrals: Provider,Referral, MD [Referring] - See instructions Clinical Impressions Clinical Impression: C. difficile enteritis, E coli enteritis Instructions Patient Instructions: DI for Acute Abdominal Pain Discharge ED Provider: Esau Lim General Adult HPI General Chief complaint: Abdominal Pain Stated complaint: Abdominal Pain Time Seen by Provider: 07/15/22 11:41 Mode of Arrival: EMS Source of Information: Patient Limitations: No Limitations Description of Symptoms (Recalled from ER Triage Doc. by RN): pt to ed via ems c/o epigatric pain and n/v. pt reports she had a recent admission for ecoli. pt denies seeing GI. pt denies cp or soa. ems reports giving 4mg SL zofan in route History of Present Illness HPI narrative: Patient is brought in by ambulance. She was admitted to the hospital here 07/11/2022 and discharged 07/12/2022 for possible small bowel obstruction and E. coli enteritis. She says that she was not any better when she left the hospital and is still unable to eat, vomits everything that she tries to take in. Continuing to have diarrhea. Continuing to complain of severe epigastric abdominal pain. Low-grade fever of around 100. She had an appointment to see her primary care provider today, but felt too ill and came back to the emergency room by ambulance instead. Related Data Home Medications Medication Instructions Recorded Confirmed amitriptyline 25 mg tablet 25 - 75 mg PO HSP PRN Sleep 07/10/22 07/15/22 budesonide-formoterol HFA 160 2 puff inhalation BID Asthma 07/10/22 07/15/22 mcg-4.5 mcg/actuation aerosol inhaler (Symbicort) carvedilol 12.5 mg tablet 12.5 mg PO BID Hypertension 07/10/22 07/15/22 gabapentin 400 mg capsule 400 mg PO TID nerve pain 07/10/22 07/15/22 lamotrigine 100 mg tablet 100 mg PO DAILY bipolar 07/10/22 07/15/22 metformin 1,000 mg tablet 1,000 mg PO BID Diabetes 07/10/22 07/15/22 montelukast 10 mg tablet 10 mg PO PM allergies 07/10/22 07/15/22 nabumetone 500 mg tablet 500 mg PO DAILY Pain 07/10/22 07/15/22 omeprazole 40 mg capsule,delayed 40 mg PO DAILY GERD 07/10
--- NOTE | 2022-07-15 11:51 | PC.NURSE ---
pt ambulated to the bathroom for sample
--- NOTE | 2022-07-15 11:54 | US_ITS ---
FINAL REPORT CLINICAL HISTORY: epigastric pain, elevated lipase FINDINGS: Sonographic images of the right upper quadrant were obtained. The pancreas is partially obscured.The liver has increased echogenicity.The gallbladder appears normal without evidence of gallstones.There is no evidence of biliary ductal dilatation.The common duct measures 4mm. Limited images of the right kidney are unremarkable. IMPRESSION: Fatty liver. Reviewed, Interpreted and Dictated by Satinder Chatman III, MD Transcribed by Anthony Hicks Authenticated and . [facility]
--- NOTE | 2022-07-15 11:54 | CT_ITS ---
FINAL REPORT TECHNIQUE: After the administration of intravenous contrast, axial images were obtained through the abdomen and pelvis by computed tomography. The study was performed with techniques to keep radiation dose as low as reasonably achievable, (ALARA). Individual dose reduction techniques using automated exposure control or adjustment of mA and/or kV according to the patient's size were employed. CLINICAL HISTORY: abdo pain, recent CT with possible SBO COMPARISON: 07/10/2022 FINDINGS: Abdomen: The lung bases are clear. There is mild fatty infiltration of the liver. The gallbladder is present. The spleen is unremarkable. The adrenals are normal. The pancreas is unremarkable. The kidneys enhance appropriately. The aorta is normal in caliber. There is no adenopathy. There is a small amount of ascites in the abdomen and pelvis. Pelvis: The appendix is not identified. There is significant wall thickening of multiple small bowel loops with adjacent edema or inflammation, may represent worsening localized enteritis. Bowel ischemia is not entirely excluded. There is moderate vascular calcification. There is mild bladder wall thickening, likely inflammatory. There is no adenopathy. IMPRESSION: Findings may represent worsening localized enteritis. Reviewed, Interpreted and Dictated by Satinder Chatman III, MD Transcribed by Sheila Watkins Authenticated and [facility]
[2022-07-15 12:07] VITALS: BP 149/97; PULSE 78; RESP 18; O2SAT 98
[2022-07-15 12:08] LABS: Adenovirus F 40/41, stool Not Detected (NotDetected); Astrovirus Not Detected (NotDetected); Campylobacter Not Detected (NotDetected); Cryptosporidium Not Detected (NotDetected); Cyclospora Cayetanesis Not Detected (NotDetected); Entamoeba histolytica Not Detected (NotDetected); Enteropathogenic E coli Not Detected (NotDetected); Enterotoxigenic E coli Not Detected (NotDetected); Giardia lamblia Not Detected (NotDetected); Norovirus Not Detected (NotDetected); Plesimonas Shigalloides, PCR Not Detected (NotDetected); Rotavirus A Not Detected (NotDetected); Salmonella, PCR Not Detected (NotDetected); Sapovirus Not Detected (NotDetected); Shiga-like toxin E coli Not Detected (NotDetected); Shigella Enterovasive E coli Not Detected (NotDetected); Vibrio Cholerae Not Detected (NotDetected); Vibrio, PCR Not Detected (NotDetected); Yersinia Entercolitica, PCR Not Detected (NotDetected)
[2022-07-15 12:11] LABS: Urine Pregnancy, HCG Qual. Negative (Negative)
--- NOTE | 2022-07-15 12:27 | PC.NURSE ---
pt to CT
[2022-07-15 12:30] LABS: Appearance,Urine CLEAR (Clear); Bilirubin,Urine Negative (Negative); Blood, Urine TRACE-I (Negative); Color,Urine YELLOW (Yellow); Glucose,Urine (UA) Negative (Negative); Ketones,Urine 3+ (Negative); Leukocyte Esterase,Urine Negative (Negative); Microscopic, Urine URINE MICROSCOPIC (MICROSCOPIC); Nitrate,Urine Negative (Negative); Protein,Urine TRACE (Negative); Specific Gravity, Urine 1.025 (1.005-1.030); Urobilinogen,Urine 0.2 EU/dl (0.2)
--- NOTE | 2022-07-15 12:38 | PC.NURSE ---
PT back from RAD
--- NOTE | 2022-07-15 12:39 | PC.NURSE ---
pt back from CT
[2022-07-15 12:41] LABS: Bacteria,Urine Trace /lpf; Mucus,Urine Trace /lpf; Squamous Epithelial Cell,Urine Occasional #/hpf (0-5); WBC,Urine Occasional #/hpf (0-3)
--- NOTE | 2022-07-15 13:05 | PC.NURSE ---
Pt back to room from RAD; @ BS
[2022-07-15 13:24] LABS: Amylase 54 U/L (30-110)
[2022-07-15 14:19] LABS: Clostridium Difficile A/B, PCR Detected (NotDetected)
[2022-07-15 14:20] LABS: Enteroaggregative E coli Detected (NotDetected)
--- NOTE | 2022-07-15 14:20 | PC.NURSE ---
notified ER of diarrhea panel results as called per lab
--- NOTE | 2022-07-15 14:48 | PC.NURSE ---
TYSON SPEAKING WITH HOSPITALIST @ THIS TIME
[2022-07-15 15:14] VITALS: BP 149/84; PULSE 95; RESP 16; O2SAT 97
[2022-07-15 15:18] LABS: Coronavirus 19, PCR Not Detected (NotDetected); Influenza A, PCR Not Detected (NotDetected); Influenza B, PCR Not Detected (NotDetected)
--- NOTE | 2022-07-15 15:25 | PC.NURSE ---
Hospitalist in room speaking to pt
[2022-07-15 15:38] VITALS: BP 151/97; PULSE 88; RESP 16; O2SAT 95
--- NOTE | 2022-07-15 16:13 | EXP.HP ---
History of Present Illness *Admission Date: 07/15/22 *Reason for visit:: Chief complaint: Abdominal pain *History of present illness: This is a 41-year-old female that presents to the emergency department [facility] accompanied by her significant other Getachew. She describes a recent hospitalization for E. coli enteritis and discharged home on oral antibiotic therapy. Her past medical history is significant for bipolar disorder, diabetes, hypertension, BMI 36, marijuana dependence and ongoing tobacco dependence. She reports on discharge from the hospital she was starting to feel better but over the last couple days she has identified increasing abdominal pain characterizes cramping. It is diffuse in nature and now localizing to the left lower quadrant. She rates the pain as greater than 10 on a 1-10 pain scale. It waxes and wanes. She describes associated nausea and some emesis with ongoing brown watery diarrhea. She has not identified any hematemesis, hematochezia or melena. She reports some lightheadedness and decreased appetite. In the ED she was afebrile with heart rate of 78 respiratory rate of 18 and saturating appropriately on room air. Her electrolytes and creatinine are normal with the exception of a potassium of 3.2. Her CBC identifies a white blood cell count of 10.8 with a hemoglobin of 12.9. An ultrasound of her gallbladder identifies fatty liver. A CT of the abdomen and pelvis identifies enteritis of the small bowel. No colitis is noted. Her stool evaluation was positive for E. coli and C. difficile toxin. She reports adequate pain relief with administered ED therapy. [facility] Medical History Diabetes mellitus, type 2 Surgical History S/P carpal tunnel release Family History Other Family history of cancer Social History Smoking Status: Never smoker second hand exposure: No alcohol intake: never substance use type: methamphetamine current occupational status: other Travel in the last 8 weeks: None household members: other housing: apartment Review of Systems Review of Systems Review of systems:: pertinent systems reviewed and negative unless documented below Constitutional Constitutional: Reports body ache(s), Denies chills, Denies fever(s), Reports lethargy and Reports malaise Eyes Eyes: Denies change in vision *Gastrointestinal Gastrointestinal: Reports as per [facility] Meds Home Medications and Allergies Home Medications Medication Instructions Recorded Confirmed Type budesonide-formoterol HFA 160 2 puff inhalation BID Asthma 07/10/22 07/15/22 History mcg-4.5 mcg/actuation aerosol inhaler (Symbicort) carvedilol 12.5 mg tablet 12.5 mg PO BID Hypertension 07/10/22 07/15/22 History gabapentin 400 mg capsule 400 mg PO TID nerve pain 07/10/22 07/15/22 History lamotrigine 100 mg tablet 100 mg PO DAILY bipolar 07/10/22 07/15/22 History metformin 1,000 mg tablet 1,000 mg PO BID Diabetes 07/10/22 07/15/22 History montelukast 10 mg tablet 10 mg PO PM allergies 07/10/22 07/15/22 History nabumetone 500 mg tablet 500 mg PO DAILY Pain 07/10/22 07/15/22 History omeprazole 40 mg capsule,delayed 40 mg PO DAILY GERD 07/10/22 07/15/22 History release quetiapine 25 mg tablet 25 - 50 mg PO HSP PRN Sleep 07/10/22 07/15/22 History ropinirole 2 mg tablet 4 mg PO HS restless leg syndrome 07/10/22 07/15/22 History rosuvastatin 20 mg tablet 20 mg PO HS Cholesterol 07/10/22 07/15/22 History sertraline 100 mg tablet 100 mg PO DAILY Depression 07/10/22 07/15/22 History hydrocodone 5 mg-acetaminophen 325 1 tab PO Q6HP PRN Moderate To 07/12/22 07/15/22 Rx mg tablet Severe Pain 3 days #12 tabs L.acidophilus-L.paracasei-B.bifidum-S.thermophl 1 cap PO DAILY per md 07/15/22 07/15/22 History 8 billion
--- NOTE | 2022-07-15 16:17 | PC.NURSE ---
report called to jeison angulo rn on second floor at this time
--- NOTE | 2022-07-15 16:23 | PC.NURSE ---
Pt arrived to the floor at this time
[2022-07-15 16:30] VITALS: BP 142/80; BP 146/115; PULSE 101; PULSE 87; RESP 16; RESP 17; TEMP 36.8; TEMP 36.9; O2SAT 96; O2SAT 99; BMI 46.6
--- NOTE | 2022-07-15 16:31 | PC.NURSE ---
RN aware of elevated bp.
[2022-07-15 19:04] LABS: Basophils # 0.2 K/mm3 (0-0.2); Basophils % 1.6 % (0.1-2.0); Eosinophils % 0.4 % (0.1-12.0); Hematocrit 39.7 % (37.0-47.0); Hemoglobin 12.6 g/dL (12.2-16.2); Lymphocytes # 1.5 K/mm3 (0.7-4.5); Lymphocytes % 14.7 % (10-50); Mean Corpuscular HGB Conc 31.7 g/dL (31.8-35.4); Mean Corpuscular Hemoglobin 27.8 pg (27.0-31.2); Mean Corpuscular Volume 87.5 fl (81-99); Mean Platelet Volume 8.7 fl (7.4-10.4); Monocytes # 0.5 K/mm3 (0.1-1.0); Neutrophils # 8.2 K/mm3 (1.8-7.8); Neutrophils % 78.4 % (37.0-80.0); Platelet Count 332 K/mm3 (142-424); Red Blood Count 4.54 M/mm3 (4.20-5.40); Red Cell Distribution Width 14.9 % (11.5-17.5); White Blood Count 10.4 K/mm3 (4.8-10.8)
[2022-07-15 19:14] LABS: Chloride 97 mmol/L (98-107); Potassium 3.6 mmoL/L (3.5-5.1); Sodium 141 mmol/L (136-145)
[2022-07-15 19:17] LABS: Anion Gap 19.6 mEq/L (5-15); Blood Urea Nitrogen 6 mg/dl (7-17); Calcium 8.7 mg/dl (8.4-10.2); Carbon Dioxide 28 mmol/L (22.0-30.0); Creatinine Clearance Estimated 117 mL/min (50-200); Estimated Glomerular Filt Rate 111 ml/min (>60); GFR (African American) 134 ML/MIN (>60); Glucose 215 mg/dl (74-100)
--- NOTE | 2022-07-15 19:43 | PC.NURSE ---
NEW ADMIT THIS SHIFT. AOX4, ABLE TO MAKE NEEDS KNOWN TO STAFF. TOLERATING ROOM AIR. MEDICATED WITH PRN MEDICATION FOR PAIN AND N/V WITH GOOD EFFECTIVENESS NOTED.
[2022-07-15 20:00] VITALS: BP 138/79; PULSE 63; RESP 18; TEMP 36.8; O2SAT 98
[2022-07-15 22:16] LABS: POC Glucose,Bedside 168 (70-110)
[2022-07-16 04:00] VITALS: BP 144/89; PULSE 77; RESP 18; TEMP 37; O2SAT 99
--- NOTE | 2022-07-16 04:37 | PC.NURSE ---
NO ACUTE CHANGES SINCE PREVIOUS ASSESSMENT. PT HAS RESTED WELL THIS SHIFT. LUNG SOUNDS ARE CLEAR. REMAINS ON ROOM AIR. NO C/O N/V/D. VSS. TO C/O ABD TENDERNESS. CALL [facility] WITHIN REACH.
[2022-07-16 05:37] LABS: POC Glucose,Bedside 103 (70-110)
[2022-07-16 05:40] VITALS: BMI 46.5
[2022-07-16 07:49] LABS: Chloride 105 mmol/L (98-107); Potassium 3.5 mmoL/L (3.5-5.1); Sodium 142 mmol/L (136-145)
[2022-07-16 07:52] LABS: Anion Gap 15.5 mEq/L (5-15); Blood Urea Nitrogen 7 mg/dl (7-17); Calcium 7.9 mg/dl (8.4-10.2); Carbon Dioxide 25 mmol/L (22.0-30.0); Creatinine Clearance Estimated 140 mL/min (50-200); Estimated Glomerular Filt Rate 137 ml/min (>60); GFR (African American) 165 ML/MIN (>60); Glucose 121 mg/dl (74-100); Magnesium 1.6 mg/dl (1.6-2.3)
[2022-07-16 07:53] LABS: Basophils # 0.1 K/mm3 (0-0.2); Basophils % 1.5 % (0.1-2.0); Eosinophils # 0.2 K/mm3 (0.0-0.4); Eosinophils % 2.4 % (0.1-12.0); Hematocrit 36.4 % (37.0-47.0); Hemoglobin 11.5 g/dL (12.2-16.2); Lymphocytes # 2.4 K/mm3 (0.7-4.5); Lymphocytes % 27.8 % (10-50); Mean Corpuscular HGB Conc 31.5 g/dL (31.8-35.4); Mean Corpuscular Hemoglobin 27.9 pg (27.0-31.2); Mean Corpuscular Volume 88.7 fl (81-99); Mean Platelet Volume 9.8 fl (7.4-10.4); Monocytes # 0.7 K/mm3 (0.1-1.0); Monocytes % 8.1 % (1.7-9.3); Neutrophils # 5.2 K/mm3 (1.8-7.8); Neutrophils % 60.2 % (37.0-80.0); Platelet Count 256 K/mm3 (142-424); Red Blood Count 4.11 M/mm3 (4.20-5.40); Red Cell Distribution Width 14.9 % (11.5-17.5); White Blood Count 8.7 K/mm3 (4.8-10.8)
[2022-07-16 08:00] VITALS: BP 128/84; PULSE 78; RESP 16; TEMP 36.9; O2SAT 97
--- NOTE | 2022-07-16 10:00 | HMH.PHAINT1 ---
Pharmacy Intervention Comments: MEDICATION RECONCILIATION COMPLETED ON PATIENT USING EXTERNAL FILL HISTORY FROM PHARMACY AND DISCHARGE SUMMARY FROM PREVIOUS ADMISSION. -SHANNAN CHAVEZ, SANDRAD
--- NOTE | 2022-07-16 10:12 | PC.NURSE ---
courtesy tech kwasi: Pt is lying in bed and states she will take a shower a little later on today.
[2022-07-16 12:59] LABS: POC Glucose,Bedside 135 (70-110)
[2022-07-16 14:10] VITALS: BMI 46.4
[2022-07-16 16:00] VITALS: BP 148/91; PULSE 82; RESP 18; TEMP 37; O2SAT 97
--- NOTE | 2022-07-16 16:24 | PC.NURSE ---
PT IS RESTING IN BED WITH SIGNIFICANT OTHER AT BEDSIDE. ALERT AND ORIENTED X4. PT AMBULATES TO THE BATHROOM. EATING AND DRINKING WELL. LUNG SOUNDS CLEAR. ABDOMEN SOFT/OBESE/NON TENDER WITH ACTIVE BOWEL SOUNDS. MEDICATED PER MAR FOR DISCOMFORT. WILL CONTINUE TO MONITOR.
--- NOTE | 2022-07-16 16:39 | EXP.PN ---
Subjective *Date: 07/16/22 *Time: 16:39 Interval history: The patient reports her last bowel movement at 4 AM this morning characterized as diarrhea. She continues to have tenesmus prior to evacuation. She denied any further nausea or vomiting. I am accompanied by multiple members of the MDR team for evaluation of the patient. Nursing staff report that she remains afebrile with stable vital signs and saturating appropriately on room air. We have reviewed and discussed her morning laboratory results including an improved potassium. Exam Data for Last 24 hours Vital signs and Labs for Last 24 Hours: Temp Pulse Resp BP Pulse Ox 98.5 F 78 16 128/84 97 07/16/22 08:00 07/16/22 08:00 07/16/22 08:00 07/16/22 08:00 07/16/22 08:00 Laboratory Results - last 24 hr 07/15/22 18:53: WBC 10.4, RBC 4.54, Hgb 12.6, Hct 39.7, MCV 87.5, MCH 27.8, MCHC 31.7 L, RDW 14.9, Plt Count 332, MPV 8.7, Neut % (Auto) 78.4, Lymph % (Auto) 14.7, [place] % (Auto) 5.0, Eos % (Auto) 0.4, Baso % (Auto) 1.6, Neut # (Auto) 8.2 H, Lymph # (Auto) 1.5, [place] # (Auto) 0.5, Eos # (Auto) 0.0, Baso # (Auto) 0.2 07/15/22 18:53: Sodium 141, Potassium 3.6, Chloride 97 L, Carbon Dioxide 28, Anion Gap 19.6 H, BUN 6 L, Creatinine 0.60, Estimated Creat Clear 117, Estimated GFR 111, Est GFR ( Amer) 134, Glucose 215 H, Calcium 8.7 07/15/22 20:45: POC Glucose 168 H 07/16/22 05:27: POC Glucose 103 07/16/22 06:16: WBC 8.7, RBC 4.11 L, Hgb 11.5 L, Hct 36.4 L, MCV 88.7, MCH 27.9, MCHC 31.5 L, RDW 14.9, Plt Count 256, MPV 9.8, Neut % (Auto) 60.2, Lymph % (Auto) 27.8, [place] % (Auto) 8.1, Eos % (Auto) 2.4, Baso % (Auto) 1.5, Neut # (Auto) 5.2, Lymph # (Auto) 2.4, [place] # (Auto) 0.7, Eos # (Auto) 0.2, Baso # (Auto) 0.1 07/16/22 06:16: Sodium 142, Potassium 3.5, Chloride 105, Carbon Dioxide 25, Anion Gap 15.5 H, BUN 7, Creatinine 0.50 L, Estimated Creat Clear 140, Estimated GFR 137, Est GFR ( Amer) 165 D, Glucose 121 H D, Calcium 7.9 L, Magnesium 1.6 07/16/22 11:16: POC Glucose 135 H Temp Pulse Resp BP Pulse Ox 99.5 F 94 H 16 147/92 H 96 07/12/22 08:00 07/12/22 08:00 07/12/22 08:00 07/12/22 08:00 07/12/22 08:00 Laboratory Results - last 24 hr 07/11/22 16:39: POC Glucose 177 H 07/11/22 22:26: POC Glucose 167 H 07/12/22 05:29: POC Glucose 172 H 07/12/22 06:12: WBC 7.8, RBC 4.48, Hgb 12.5, Hct 39.8, MCV 88.9, MCH 28.0, MCHC 31.5 L, RDW 14.6, Plt Count 228, MPV 9.0, Neut % (Auto) 78.0, Lymph % (Auto) 14.0, [place] % (Auto) 4.0, Eos % (Auto) 3.6, Baso % (Auto) 0.4, Neut # (Auto) 6.1, Lymph # (Auto) 1.1, [place] # (Auto) 0.3, Eos # (Auto) 0.3, Baso # (Auto) 0.0 07/12/22 06:12: Sodium 137, Potassium 3.3 L, Chloride 101, Carbon Dioxide 24, Anion Gap 15.3 H, BUN 12 D, Creatinine 0.70, Estimated Creat Clear 100, Estimated GFR 93, Est GFR ( Amer) 112, Glucose 175 H, Calcium 7.8 L, Magnesium 1.6, Total Bilirubin 0.4, AST 41 H, ALT 21, Alkaline Phosphatase 63, Total Protein 7.1, Albumin 3.5 D, Globulin 3.6 H, Albumin/Globulin Ratio 1.0 L 07/12/22 12:01: POC Glucose 208 H I & O for Last 24 hours: Intake & Output 07/13/22 07/14/22 07/15/22 07/16/22 23:59 23:59 23:59 23:59 Intake Total 480 / 960 7 / 3517 Output Total 200 / 200 0 / 0 Balance 280 / 760 3517 / 3517 Weight 131.088 kg 131 kg Constitutional Constitutional: no acute distress and obese *Routine HEENT Exam Head: Present normocephalic Eye: Present EOMI and PERRL ENT: Present mucous membranes moist *Routine Neck Exam Neck: Present supple; Absent lymphadenopathy *Routine Respiratory Exam Respiratory: Present CTA bilaterally; Absent wheezes or crackles *Routine Cardiovascular Exam Cardiovascular: Present RRR; Absent murmur *Routine Abdominal Exam Abdominal: Present soft, normoactive bowel sounds and tenderness (diffuse tenderness, no rebound) *Routine Rectal Exam Patient deferred: visual exam *Routine Exam Patient deferred: external exam *Routine Extremities Exam Extremities: Absent cyanosi
[2022-07-16 17:22] LABS: POC Glucose,Bedside 147 (70-110)
[2022-07-16 20:00] VITALS: BP 156/93; PULSE 86; RESP 20; TEMP 36.9; O2SAT 97
[2022-07-16 21:46] LABS: POC Glucose,Bedside 155 (70-110)
--- NOTE | 2022-07-17 02:09 | EXP.PN ---
Subjective *Date: 07/17/22 *Time: 06:19 Interval history: Progress note I saw and examined this patient in room 207. Upon examination of this patient she appears to be in no acute distress and nontoxic in nature. This is the patient's seventh day of admission. Patient currently denies any nausea or vomiting. Vital signs are stable. Review of laboratory values shows an improvement of the potassium. We will continue to monitor labs, blood sugar values and blood pressure. We will continue current clinical plan. Exam Data for Last 24 hours Vital signs and Labs for Last 24 Hours: Temp Pulse Resp BP Pulse Ox 98.5 F 86 20 156/93 H 97 07/16/22 20:00 07/16/22 20:00 07/16/22 20:00 07/16/22 20:00 07/16/22 20:00 Laboratory Results - last 24 hr 07/16/22 05:27: POC Glucose 103 07/16/22 06:16: WBC 8.7, RBC 4.11 L, Hgb 11.5 L, Hct 36.4 L, MCV 88.7, MCH 27.9, MCHC 31.5 L, RDW 14.9, Plt Count 256, MPV 9.8, Neut % (Auto) 60.2, Lymph % (Auto) 27.8, [place] % (Auto) 8.1, Eos % (Auto) 2.4, Baso % (Auto) 1.5, Neut # (Auto) 5.2, Lymph # (Auto) 2.4, [place] # (Auto) 0.7, Eos # (Auto) 0.2, Baso # (Auto) 0.1 07/16/22 06:16: Sodium 142, Potassium 3.5, Chloride 105, Carbon Dioxide 25, Anion Gap 15.5 H, BUN 7, Creatinine 0.50 L, Estimated Creat Clear 140, Estimated GFR 137, Est GFR ( Amer) 165 D, Glucose 121 H D, Calcium 7.9 L, Magnesium 1.6 07/16/22 11:16: POC Glucose 135 H 07/16/22 16:23: POC Glucose 147 H 07/16/22 20:34: POC Glucose 155 H Temp Pulse Resp BP Pulse Ox 99.5 F 94 H 16 147/92 H 96 07/12/22 08:00 07/12/22 08:00 07/12/22 08:00 07/12/22 08:00 07/12/22 08:00 Laboratory Results - last 24 hr 07/11/22 16:39: POC Glucose 177 H 07/11/22 22:26: POC Glucose 167 H 07/12/22 05:29: POC Glucose 172 H 07/12/22 06:12: WBC 7.8, RBC 4.48, Hgb 12.5, Hct 39.8, MCV 88.9, MCH 28.0, MCHC 31.5 L, RDW 14.6, Plt Count 228, MPV 9.0, Neut % (Auto) 78.0, Lymph % (Auto) 14.0, [place] % (Auto) 4.0, Eos % (Auto) 3.6, Baso % (Auto) 0.4, Neut # (Auto) 6.1, Lymph # (Auto) 1.1, [place] # (Auto) 0.3, Eos # (Auto) 0.3, Baso # (Auto) 0.0 07/12/22 06:12: Sodium 137, Potassium 3.3 L, Chloride 101, Carbon Dioxide 24, Anion Gap 15.3 H, BUN 12 D, Creatinine 0.70, Estimated Creat Clear 100, Estimated GFR 93, Est GFR ( Amer) 112, Glucose 175 H, Calcium 7.8 L, Magnesium 1.6, Total Bilirubin 0.4, AST 41 H, ALT 21, Alkaline Phosphatase 63, Total Protein 7.1, Albumin 3.5 D, Globulin 3.6 H, Albumin/Globulin Ratio 1.0 L 07/12/22 12:01: POC Glucose 208 H I & O for Last 24 hours: Intake & Output 07/14/22 07/15/22 07/16/22 07/17/22 23:59 23:59 23:59 23:59 Intake Total 480 / 960 3877 / 3877 Output Total 200 / 200 0 / 0 Balance 280 / 760 3877 / 3877 Weight 131.088 kg 131 kg Constitutional Constitutional: no acute distress and obese *Routine HEENT Exam Head: Present normocephalic Eye: Present EOMI and PERRL ENT: Present mucous membranes moist *Routine Neck Exam Neck: Present supple; Absent lymphadenopathy *Routine Respiratory Exam Respiratory: Present CTA bilaterally; Absent wheezes or crackles *Routine Cardiovascular Exam Cardiovascular: Present RRR; Absent murmur *Routine Abdominal Exam Abdominal: Present soft, normoactive bowel sounds and tenderness (diffuse tenderness, no rebound) *Routine Rectal Exam Patient deferred: visual exam *Routine Exam Patient deferred: external exam *Routine Extremities Exam Extremities: Absent cyanosis, clubbing or edema *Routine Skin Exam Skin: Present warm; Absent rash *Routine Neurological Exam Neurological: Present alert and oriented X3; Absent altered mental status Assessment and Plan *Assessment and plan (1) C. difficile enteritis: Status: Acute Category: Medical Code(s): A04.72 - Enterocolitis due to Clostridium difficile, not specified as recurrent (2) Diabetes: Status: Resolved Category: Medical Code(s): E11.9 - Type 2 diabetes mellitus without complic
[2022-07-17 04:00] VITALS: BP 143/75; PULSE 79; RESP 20; TEMP 37.8; O2SAT 97
--- NOTE | 2022-07-17 04:06 | PC.NURSE ---
Addendum entered by Courtney Duran RN 07/17/22 04:26: pt reports several unmeasured voids, but no bowel movements this shift Original Note: pt has rested t/o shift in chair at bedside, no complaints of pain or N/V/D, tolerating PO intake well, remains on room air
[2022-07-17 05:00] VITALS: BMI 46.0
[2022-07-17 06:22] LABS: POC Glucose,Bedside 120 (70-110)
[2022-07-17 07:23] LABS: Chloride 105 mmol/L (98-107); Potassium 3.7 mmoL/L (3.5-5.1); Sodium 144 mmol/L (136-145)
[2022-07-17 07:26] LABS: Anion Gap 15.7 mEq/L (5-15); Blood Urea Nitrogen 6 mg/dl (7-17); Carbon Dioxide 27 mmol/L (22.0-30.0); Creatinine Clearance Estimated 140 mL/min (50-200); Estimated Glomerular Filt Rate 137 ml/min (>60); GFR (African American) 165 ML/MIN (>60); Glucose 127 mg/dl (74-100)
[2022-07-17 07:59] VITALS: BP 127/100; PULSE 77; RESP 16; TEMP 37.1; O2SAT 99
--- NOTE | 2022-07-17 08:00 | PC.NURSE ---
pt had 1 unmeasured void
--- NOTE | 2022-07-17 11:22 | EXP.DC.SUM ---
General Admission date:: 07/15/22 Discharge date: 07/17/22 HPI HPI HPI: This is a 41-year-old female that presents to the emergency department [facility] accompanied by her significant other Getachew. She describes a recent hospitalization for E. coli enteritis and discharged home on oral antibiotic therapy. Her past medical history is significant for bipolar disorder, diabetes, hypertension, BMI 36, marijuana dependence and ongoing tobacco dependence. She reports on discharge from the hospital she was starting to feel better but over the last couple days she has identified increasing abdominal pain characterizes cramping. It is diffuse in nature and now localizing to the left lower quadrant. She rates the pain as greater than 10 on a 1-10 pain scale. It waxes and wanes. She describes associated nausea and some emesis with ongoing brown watery diarrhea. She has not identified any hematemesis, hematochezia or melena. She reports some lightheadedness and decreased appetite. In the ED she was afebrile with heart rate of 78 respiratory rate of 18 and saturating appropriately on room air. Her electrolytes and creatinine are normal with the exception of a potassium of 3.2. Her CBC identifies a white blood cell count of 10.8 with a hemoglobin of 12.9. An ultrasound of her gallbladder identifies fatty liver. A CT of the abdomen and pelvis identifies enteritis of the small bowel. No colitis is noted. Her stool evaluation was positive for E. coli and C. difficile toxin. She reports adequate pain relief with administered ED therapy. Hospital Course Hospital Course Hospital Course: The patient is admitted to the medical floor with contact precautions. She is started on oral vancomycin therapy and her laboratory studies are trended. Her laboratory studies identified improvement. And the patient tolerated her p.o. antibiotic well. Her diarrhea resolved yesterday morning at 4 AM. She reports adequate p.o. intake with no further abdominal pain. She has identified improvement and is inquiring about discharge home. I am accompanied by Namita NGUYEN to review her discharge. Her significant other is at bedside. She understands the importance of medication compliance and home probiotic therapy. She plans to follow-up with her PCP next week for reevaluation. I spent 35 minutes in [id number] time with the patient, nursing staff at bedside (Namita NGUYEN) and the patients significant other concerning the discharge process. We discussed the admitting diagnoses and the hospital course. We discussed identified improvement and the patient's desire to be discharged. We reviewed inpatient studies and imaging. The patient voiced understanding on the importance of follow-up with their primary care provider and specialist(s). The patient plans to be compliant with the medication regimen prescribed. They understands that they can return to the emergency department with any sudden changes or concerns. Exam Data for Last 24 hours Vital signs and Labs for Last 24 Hours: Temp Pulse Resp BP Pulse Ox 98.7 F 77 16 127/100 H 99 07/17/22 07:59 07/17/22 07:59 07/17/22 07:59 07/17/22 07:59 07/17/22 07:59 Laboratory Results - last 24 hr 07/16/22 11:16: POC Glucose 135 H 07/16/22 16:23: POC Glucose 147 H 07/16/22 20:34: POC Glucose 155 H 07/17/22 06:08: POC Glucose 120 H 07/17/22 06:56: Sodium 144, Potassium 3.7, Chloride 105, Carbon Dioxide 27, Anion Gap 15.7 H, BUN 6 L, Creatinine 0.50 L, Estimated Creat Clear 140, Estimated GFR 137, Est GFR ( Amer) 165, Glucose 127 H, Calcium 8.0 L I & O for Last 24 hours: Intake & Output 07/14/22 07/15/22 07/16/22 07/17/22 23:59 23:59 23:59 23:59 Intake Total 480 / 960 3876 / 7 2111 Output Total 200 / 200 0 / 0 0 / 0 Balance 280 / 760 3877 / 3877 2111 Weight 131.088 kg 131 kg 130.136 kg Constitutional Constitutional: no acute distress and obese *Routine HEENT Exam Head: Pre
[2022-07-17 11:32] LABS: POC Glucose,Bedside 159 (70-110)
--- NOTE | 2022-07-19 14:38 | CARE MANAGER ---
Attempted post-discharge phone interview, no answer.
== END 2022-07-17 12:14 | disposition home or self-care (01) | DRG 373 ==
LOC: ER 15:07 → 2ND 15:46
PROVIDERS: Admitting Provider Family Medicine; Emergency Provider Emergency Medicine; PCP Family Medicine; Visit Provider Family Medicine
DX: A04.72 Enterocolitis due to Clostridium difficile, not specified as recurrent (principal); E11.9 Type 2 diabetes mellitus without complications; I10 Essential (primary) hypertension; K21.9 Gastro-esophageal reflux disease without esophagitis; F31.9 Bipolar disorder, unspecified; Z79.84 Long term (current) use of oral hypoglycemic drugs; Z79.899 Other long term (current) drug therapy; Z20.822 Contact with and (suspected) exposure to COVID-19
CPT/HCPCS: 36415; 74177; 76705; 80048; 80053; 81001; 81025; 82150; 82962; 83690; 83735; 85025; 87507; 99285; C9803; G0378; J2405; J3370; Q9967; U0003; U0005

== ENCOUNTER 2024-01-12 07:00 | Emergency (ER) | payer MEDICARE, SELFPAY ==
[2024-01-12 07:01] VITALS: BP 178/111; PULSE 73; RESP 18; TEMP 36.6; O2SAT 97; BMI 47.3
--- NOTE | 2024-01-12 07:20 | ED_ITS ---
Discharge Plan Disposition Patient Disposition: Home, Self-Care Condition: Good Prescriptions Prescriptions: New methocarbamol 750 mg tablet 750 mg PO Q8H PRN (Reason: pain) Qty: 20 0RF lidocaine [Lidoderm] 5 % adhesive patch,medicated 1 patch topical DAILY Qty: 15 0RF Rx Instructions: leave on most painful area for up to 12 hrs ketorolac 10 mg tablet 10 mg PO Q8H PRN (Reason: pain) 1 Days Qty: 14 0RF No Action amitriptyline 25 mg tablet 25 - 75 mg PO HS Patient Comments: TAKE 1 TO 3 TABLETS BY MOUTH NIGHTLY NEEDED FOR SLEEP. aspirin 81 mg tablet,chewable 81 mg PO DAILY ergocalciferol (vitamin D2) 1,250 mcg (50,000 unit) capsule 1,250 mcg PO WEEKLY vancomycin 500 mg Recon Soln 125 mg PO Q6H Qty: 25 0RF ondansetron HCl 4 mg tablet 4 mg PO Q6H PRN (Reason: nausea and vomiting) Qty: 10 0RF quetiapine 25 mg tablet 25 - 50 mg PO HSP PRN (Reason: Sleep) Patient Comments: TAKE 1 TO 2 TABLETS BY MOUTH NIGHTLY NEEDED. carvedilol 12.5 mg tablet 12.5 mg PO BID Patient Comments: TAKE 1 TABLET BY MOUTH 2 TIMES DAILY. gabapentin 400 mg capsule 400 mg PO TID sertraline 100 mg tablet 100 mg PO DAILY Patient Comments: TAKE 1 TABLET BY MOUTH DAILY. omeprazole 40 mg capsule,delayed release(DR/EC) 40 mg PO DAILY Patient Comments: TAKE 1 CAPSULE BY MOUTH EVERY 24 HOURS ropinirole 2 mg tablet 4 mg PO HS Patient Comments: TAKE 2 TABLETS BY MOUTH NIGHTLY. metformin 1,000 mg tablet 1,000 mg PO BID Patient Comments: TAKE 1 TABLET BY MOUTH 2 TIMES DAILY. montelukast 10 mg tablet 10 mg PO PM Patient Comments: TAKE ONE TABLET BY MOUTH EVERY EVENING lamotrigine 100 mg tablet 100 mg PO DAILY Patient Comments: TAKE 1 TABLET BY MOUTH DAILY. nabumetone 500 mg tablet 500 mg PO DAILY Patient Comments: TAKE 1 TABLET BY MOUTH DAILY. rosuvastatin 20 mg tablet 20 mg PO HS Patient Comments: TAKE 1 TABLET BY MOUTH NIGHTLY. budesonide-formoterol [Symbicort] 160-4.5 mcg/actuation HFA aerosol inhaler 2 puff INHALATION BID Patient Comments: INHALE 2 PUFFS INTO THE LUNGS 2 TIMES DAILY. Referrals Follow up/Referrals: Xochitl Lim APRN [Primary Care Provider] - See instructions Activity Restrictions/Add. Instructions Additional Instructions/Restrictions: You were evaluated in the emergency department today. 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 You may also take Tylenol in addition to his medications every 4-6 hours. Follow-up closely with your primary care provider. Return to the emergency department for new or worsening symptoms. Clinical Impressions Clinical Impression: Acute mid back pain, Degenerative disc disease, thoracic Stand Alone Forms Stand Alone Forms: Work/School Release Instructions Patient Instructions: DI for Low Back Pain, DI for Thoracic Back Pain Discharge ED Provider: Romelia Arredondo General Adult HPI General Chief complaint: Back Pain/Injury Stated complaint: Pin in ribs Time Seen by Provider: 01/12/24 07:04 Mode of Arrival: Ambulatory Source of Information: Patient Limitations: No Limitations Description of Symptoms (Recalled from ER Triage Doc. by RN): Patient complaint of right sided lower to mid back pain that radiates to her ribs. Also complains of nausea. History of Present Illness HPI narrative: This patient is a 43-year-old female with a history of morbid obesity, CAD with SD, type 2 diabetes, hypertension, and prior small bowel obstruction presenting to the emergency department for evaluation with concern for upper/mid back pain that radiates around her ribs to her abdomen, nausea, and vomiting. She states that she feels like she is having spasms in her back. She notes that it radiates around to her abdomen, but also radiates down her right thigh. She notes that she has chronic back pain, but this is unlike what she is experienced before. She denies any recent falls or traumatic injuries. She also denies any fevers, chills, changes in bowel movements, numbness, tingling, saddle anesthesia, urinary retention, urinary incontinence, dysuria, hematuria, or other concerns. She has taken Tylenol and ibuprofen at home without good improvement. Related Data Home Medications Medication Instructions Recorded Confirmed budesonide-formoterol HFA 160 2 puff inhalation BID Asthma 07/10/22 07/15/22 mcg-4.5 mcg/actuation aerosol inhaler (Symbicort) carvedilol 12.5 mg tablet 12.5 mg PO BID Hypertension 07/10/22 07/15/22 gabapentin 400 mg capsule 400 mg PO TID nerve pain 07/10/22 07/15/22 lamotrigine 100 mg tablet 100 mg PO DAILY bipolar 07/10/22 07/15/22 metformin 1,000 mg tablet 1,000 mg PO BID Diabetes 07/10/22 07/15/22 montelukast 10 mg tablet 10 mg PO PM allergies 07/10/22 07/15/22 nabumetone 500 mg tablet 500 mg PO DAILY Pain 07/10/22 07/15/22 omeprazole 40 mg capsule,delayed 40 mg PO DAILY GERD 07/10/22 07/15/22 release quetiapine 25 mg tablet 25 - 50 mg PO HSP PRN Sleep 07/10/22 07/15/22 ropinirole 2 mg tablet 4 mg PO HS restless leg syndrome 07/10/22 07/15/22 rosuvastatin 20 mg tablet 20 mg PO HS Cholesterol 07/10/22 07/15/22 sertraline 100 mg tablet 100 mg PO DAILY Depression 07/10/22 07/15/22 amitriptyline 25 mg tablet 25 - 75 mg PO HS SLEEP 07/16/22 07/16/22 aspirin 81 mg chewable tablet 81 mg PO DAILY HEART HEALTH 07/16/22 07/16/22 ergocalciferol (vitamin D2) 1,250 1,250 mcg PO WEEKLY Supplement 07/16/22 07/16/22 mcg (50,000 unit) capsule Previous Rx's Medication Instructions Recorded ondansetron HCl 4 mg tablet 4 mg PO Q6H PRN nausea and 07/17/22 vomiting #10 tabs vancomycin 500 mg intravenous 125 mg PO Q6H #25 ea 07/17/22 solution ketorolac 10 mg tablet 10 mg PO Q8H PRN pain 1 day #14 01/12/24 tabs lidocaine 5 % topical patch 1 patch topical DAILY #15 ea 01/12/24 (Lidoderm) methocarbamol 750 mg tablet 750 mg PO Q8H PRN pain #20 tabs 01/12/24 Allergies Allergy/AdvReac Type Severity Reaction Status Date / Time latex Allergy Verified 01/12/24 07:25 Penicillins Allergy Unknown Verified 12/05/23 12:52 allergy reaction Sulfa (Sulfonamide Allergy Unknown Verified 12/05/23 12:52 Antibiotics) allergy reaction PFSH PFSH Disclaimer: The information contained in this section may have been updated after the patient was seen, as this information can be updated by other users. Medical History Diabetes mellitus, type 2 Surgical History S/P carpal tunnel release Family History Other Family history of cancer Social History Smoking Status: Current every day smoker second hand exposure: No alcohol intake: never substance use type: methamphetamine current occupational status: other Travel in the last 8 weeks: None household members: other housing: apartment ROS Obtained: Yes All systems reviewed & no additional complaints except as documented Physical Exam General General appearance: alert, in no apparent distress and obese Comment: Uncomfortable appearing Head Head exam: atraumatic and normocephalic Eye Eye exam: Present normal appearance, PERRL and EOMI ENT ENT exam: Present normal exam, normal oropharynx, mucous membranes moist and normal external ear exam Neck Neck exam: Present normal inspection, full ROM and trachea midline; Absent tenderness Chest Chest inspection: Present normal inspection and symmetric chest wall rise; Absent tenderness Respiratory Respiratory exam: Present normal lung sounds bilaterally; Absent respiratory distress, wheezes, stridor or accessory muscle use Cardiovascular Cardiovascular exam: Present regular rate and normal rhythm Abdominal Exam Abdominal exam: Present soft and tenderness (Epigastric); Absent distention, guarding, rebound or rigidity Extremities Exam Extremities exam: Present normal inspection, full ROM and normal capillary refill; Absent tenderness or edema Back Exam Back exam: Present full ROM and paraspinal tenderness Neurological Exam Neurological exam: Present alert, oriented X3, CN II-XII intact and normal gait; Absent motor sensory deficit Psychiatric Psychiatric exam: Present normal affect and normal mood Skin Skin exam: Present warm and dry Medical Decision Making Medical Records Medical records reviewed: Yes I reviewed the patient's medical records. [place] Inquiry Pt receiving controlled substance: No Vital Signs: 01/12/24 07:01 01/12/24 10:48 Temperature 97.9 F 97.9 F Temperature Source Oral Oral Pulse Rate 70 Pulse Rate [Radial] 73 Respiratory Rate 18 18 Blood Pressure 168/98 H Blood Pressure [Right Arm] 178/111 H Blood Pressure Mean [Right Arm] 133 Blood Pressure Source Automatic Cuff Blood Pressure Source [Right Arm] Automatic Cuff Blood Pressure Position Sitting Blood Pressure Position [Right Arm] Sitting 02 Sat by Pulse Oximetry 97 Oxygen Delivery Method Room Air Room Air Lab Data Lab results reviewed: Yes I reviewed the patient's lab results. Lab Results 01/12/24 07:26: WBC 5.0, RBC 4.57, Hgb 12.8, Hct 40.1, MCV 87.7, MCH 28.1, MCHC 32.0, RDW 14.4, Plt Count 161, MPV 9.2, Neut % (Auto) 50.7, Lymph % (Auto) 38.3, [place] % (Auto) 6.4, Eos % (Auto) 1.7, Baso % (Auto) 2.9 H, Neut # (Auto) 2.5, Lymph # (Auto) 1.9, [place] # (Auto) 0.3, Eos # (Auto) 0.1, Baso # (Auto) 0.1, Sodium 140, Potassium 3.9, Chloride 108 H, Carbon Dioxide 26, Anion Gap 9.9, BUN 12, Creatinine 0.60, Estimated Creat Clear 105, Estimated GFR 110, Est GFR ( Amer) 133, Glucose 135 H, Calcium 9.3, Total Bilirubin 0.6, AST 32, ALT 27, Alkaline Phosphatase 52, Troponin I < 0.01, Total Protein 7.4, Albumin 4.1, Globulin 3.3 H, Albumin/Globulin Ratio 1.2, Lipase 92, Serum HCG, Qual Negative 01/12/24 08:07: Urine Color Yellow, Urine Appearance Clear, Urine pH 6.0, Ur Specific [place] 1.025, Urine Protein 1+, Urine Glucose (UA) Negative, Urine Ketones Negative, Urine Blood Negative, Urine Nitrate Negative, Urine Bilirubin Negative, Urine Urobilinogen 0.2, Ur Leukocyte Esterase Negative, Urine RBC Occasional, Urine WBC Occasional, Ur Squamous Epith Cells 5-10, Urine Bacteria Trace, Urine Mucus Trace 01/12/24 07:26 01/12/24 07:26 Orders (Tests/Meds): ED MEDICATIONS Discontinued Medications Generic Name Dose Route Start Last Admin Trade Name Freq PRN Reason Stop Dose Admin Acetaminophen 1,000 mg 01/12/24 07:20 01/12/24 07:35 Acetaminophen 1,000mg/100ml Vial IV 01/12/24 07:21 1,000 mg ONCE ONE Administration Diazepam 5 mg 01/12/24 10:24 01/12/24 10:30 Diazepam 5mg Tablet PO 01/12/24 10:25 5 mg ONCE ONE Administration Iopamidol 75 ml 01/12/24 08:53 01/12/24 08:54 Iopamidol-370 (76%);100ml Bottle IV 01/12/24 08:54 75 ml ONCE ONE Administration Ketorolac Tromethamine 15 mg 01/12/24 07:19 01/12/24 07:35 Ketorolac 30mg/Ml Vial IV 01/12/24 07:20 15 mg ONCE ONE Administration Lidocaine 1 each 01/12/24 07:19 01/12/24 07:35 Lidocaine 5% Transdermal Patch TP 01/12/24 07:20 1 each ONCE ONE Administration Morphine Sulfate 4 mg 01/12/24 07:19 01/12/24 07:35 Morphine 4mg/Ml Syringe IV 01/12/24 07:20 4 mg ONCE ONE Administration Ondansetron HCl 4 mg 01/12/24 07:20 01/12/24 07:36 Ondansetron 4mg/2ml Vial IV 01/12/24 07:21 4 mg ONCE ONE Administration ORDERS Category Date Time Status CT abdomen pelvis w con Stat Cat Scan 01/12/24 07:[address] lumbar spine wo con Stat Cat Scan 01/12/24 07:[address] thoracic spine wo con Stat Cat Scan 01/12/24 07:59 Completed Complete Blood Count Auto Diff Stat Lab 01/12/24 07:26 Completed Comprehensive Metabolic Panel Stat Lab 01/12/24 07:26 Completed Lipase Stat Lab 01/12/24 07:26 Completed Serum [HCG Qualitative, Serum] Stat Lab 01/12/24 07:26 Completed Troponin I Stat Lab 01/12/24 07:26 Completed Urinalysis and Microscopic Stat Lab 01/12/24 08:07 Completed ECG Data Tracing #1: I reviewed this ECG and interpreted as documented below: Normal sinus rhythm with a ventricular rate of [address] changes concerning for ischemia. Normal axis and intervals. ECG initial impression date: 01/12/24 ECG initial impression time: 07:59 Medical Decision Narrative: In summary, this patient is a 43-year-old female presenting to the Emergency Department for evaluation of upper/mid back pain radiating around to her abdomen/ribs as well as nausea and vomiting. Differential diagnoses considered include but are not limited to musculoskeletal strain/sprain, pancreatitis, cholecystitis, pyelonephritis, ureterolithiasis, colitis, bowel obstruction. Ruling out the most morbid conditions drove assessment. On exam, the patient is uncomfortable appearing with epigastric tenderness. She notes she still having good normal bowel movements, which makes bowel obstruction less likely, however she is at high risk given that she has a history of bowel obstruction. Workup included CBC, CMP, test, lipase, troponin, EKG, and urinalysis. She was given IV morphine, Zofran, Toradol, and acetaminophen for symptomatic improvement. CT scan abdomen pelvis as well as CT T/L-spine were obtained. I independently interpreted CT scans prior to the radiologist read and noted degenerative disc disease without acute fracture or intra-abdominal process. Please see their read for final interpretation. Labs were obtained that demonstrated concerning abnormalities. On reassessment, patient had good improvement after administration of interventions above. She was given oral Valium for continued muscle spasms. Patient is able to ambulate throughout the emergency department. At this time, feel that she is appropriate for discharge home. She was given prescriptions for Toradol, Robaxin, and Lidoderm patches as well as instructions for close patient follow-up. Strict return precautions were given. Critical Care Critical Care Time Critical Care Time: No
[2024-01-12] MEDS: ACETAMINOPHEN 1,000MG/100ML VIAL 1000 MG IV (07:35)
[2024-01-12] MEDS: KETOROLAC 30MG/ML VIAL 15 MG IV (07:35)
[2024-01-12] MEDS: LIDOCAINE 5% TRANSDERMAL PATCH 1 EACH TP (07:35)
[2024-01-12] MEDS: MORPHINE 4MG/ML SYRINGE 4 MG IV (07:35)
[2024-01-12] MEDS: ONDANSETRON 4MG/2ML VIAL 4 MG IV (07:36)
[2024-01-12 07:41] LABS: Basophils # 0.1 K/mm3 (0-0.2); Basophils % 2.9 % (0.1-2.0); Eosinophils # 0.1 K/mm3 (0.0-0.4); Eosinophils % 1.7 % (0.1-12.0); Hematocrit 40.1 % (37.0-47.0); Hemoglobin 12.8 g/dL (12.2-16.2); Lymphocytes # 1.9 K/mm3 (0.7-4.5); Lymphocytes % 38.3 % (10-50); Mean Corpuscular Hemoglobin 28.1 pg (27.0-31.2); Mean Corpuscular Volume 87.7 fl (81-99); Mean Platelet Volume 9.2 fl (7.4-10.4); Monocytes # 0.3 K/mm3 (0.1-1.0); Monocytes % 6.4 % (1.7-9.3); Neutrophils # 2.5 K/mm3 (1.8-7.8); Neutrophils % 50.7 % (37.0-80.0); Platelet Count 161 K/mm3 (142-424); Red Blood Count 4.57 M/mm3 (4.20-5.40); Red Cell Distribution Width 14.4 % (11.5-17.5)
--- NOTE | 2024-01-12 07:58 | ECG_ITS ---
APPROVED REPORT Exam: Resting ECG HR:62 bpm ECG Measurements Heart Rate 62 AXES VA 171 P 46 QRSd 102 QRS 49 QT 433 T 60 QTc 438 Conclusion SINUS RHYTHM NORMAL ECG Electronically signed by : JADA BOSS, 01/12/2024 14:46:26
--- NOTE | 2024-01-12 07:59 | CT_ITS ---
FINAL REPORT TECHNIQUE: Axial images were obtained of the thoracic spine by computed tomography. Coronal and sagittal reconstruction process performed. This study was performed with techniques to keep radiation doses as low as reasonably achievable (ALARA). Individualized dose reduction techniques using automated exposure control or adjustment of mA and/or kV according to the patient's size were employed. CLINICAL HISTORY: upper abd/back pain COMPARISON: None FINDINGS: There is mild anterior osteophyte formation in the mid and lower thoracic spine. The vertebrae are normal in height. There is no malalignment. The axial images demonstrate mild endplate hypertrophy in the lower thoracic spine with mild bilateral neuroforaminal narrowing at T10-11. IMPRESSION: Changes of degenerative disc disease with mild bilateral neuroforaminal narrowing at T10-11. Reviewed, Interpreted and Dictated by Yariel Trotter MD Transcribed by Imani Oglesby Authenticated and [facility]
--- NOTE | 2024-01-12 07:59 | CT_ITS ---
FINAL REPORT TECHNIQUE: After the administration of oral and intravenous contrast, axial images were obtained through the abdomen and pelvis by computed tomography. The study was performed with techniques to keep radiation dose as low as reasonably achievable, (ALARA). Individual dose reduction techniques using automated exposure control or adjustment of mA and/or kV according to the patient's size were employed. CLINICAL HISTORY: upper abd/back pain COMPARISON: None FINDINGS: Abdomen: The lung bases are clear. There is moderate fatty infiltration of the liver. The gallbladder is present. The spleen, pancreas, adrenals and kidneys appear unremarkable. The aorta is normal in caliber. There is no free fluid or adenopathy. Pelvis: The appendix is not identified. The uterus is present and lies eccentric to the left. The urinary bladder is incompletely distended. There is no localized inflammatory reaction. There is no evidence of fluid collection. IMPRESSION: Moderate fatty liver. Reviewed, Interpreted and Dictated by Yariel Trotter MD Transcribed by Imani Oglesby Authenticated and [facility]
--- NOTE | 2024-01-12 07:59 | CT_ITS ---
FINAL REPORT TECHNIQUE: Axial images were obtained of the lumbar spine by computed tomography. Coronal and sagittal reconstruction process performed. This study was performed with techniques to keep radiation doses as low as reasonably achievable (ALARA). Individualized dose reduction techniques using automated exposure control or adjustment of mA and/or kV according to the patient''s size were employed. CLINICAL HISTORY: upper abd/back pain COMPARISON: None FINDINGS: There is moderate disc space narrowing at L5-S1 with endplate hypertrophy. The vertebrae are normal in height. There is no malalignment. L1-2: No significant spinal canal compromise or neuroforaminal narrowing. L2-3: No significant spinal canal compromise or neuroforaminal narrowing. L3-4: No significant spinal canal compromise or neuroforaminal narrowing. L4-5: Moderate facet hypertrophy. No significant spinal canal compromise or neuroforaminal narrowing. L5-S1: Moderate endplate hypertrophy. Moderate to high-grade bilateral neuroforaminal narrowing. IMPRESSION: Changes of degenerative disc disease, most evident at L5-S1. Reviewed, Interpreted and Dictated by Yariel Trotter MD Transcribed by Imani Oglesby Authenticated and [facility]
[2024-01-12 08:00] LABS: HCG Qualitative, Serum Negative (Negative)
[2024-01-12 08:01] LABS: Alanine Aminotransferase 27 U/L (12-78); Albumin Level 4.1 g/dl (3.5-5.0); Albumin/Globulin Ratio 1.2 (1.1-1.8); Alkaline Phosphatase 52 U/L (38-126); Anion Gap 9.9 mEq/L (5-15); Aspartate Amino Transferase 32 U/L (14-36); Bilirubin,Total 0.6 mg/dl (0.2-1.3); Blood Urea Nitrogen 12 mg/dl (7-17); Calcium 9.3 mg/dl (8.4-10.2); Carbon Dioxide 26 mmol/L (22.0-30.0); Chloride 108 mmol/L (98-107); Creatinine Clearance Estimated 105 mL/min (50-200); Estimated Glomerular Filt Rate 110 ml/min (>60); GFR (African American) 133 ML/MIN (>60); Globulin 3.3 g/dL (1.3-3.2); Glucose 135 mg/dl (74-100); Lipase 92 U/L (23-300); Potassium 3.9 mmoL/L (3.5-5.1); Sodium 140 mmol/L (136-145); Total Protein,Serum 7.4 g/dl (6.3-8.2)
[2024-01-12 08:11] LABS: Microscopic, Urine URINE MICROSCOPIC (MICROSCOPIC)
[2024-01-12 08:15] LABS: Appearance,Urine CLEAR (Clear); Bilirubin,Urine Negative (Negative); Blood, Urine Negative (Negative); Color,Urine YELLOW (Yellow); Glucose,Urine (UA) Negative (Negative); Ketones,Urine Negative (Negative); Leukocyte Esterase,Urine Negative (Negative); Nitrate,Urine Negative (Negative); Protein,Urine 1+ (Negative); Specific Gravity, Urine 1.025 (1.005-1.030); Urobilinogen,Urine 0.2 EU/dl (0.2)
[2024-01-12 08:19] LABS: Troponin I < 0.01 ng/ml (0.00-0.034)
--- NOTE | 2024-01-12 08:40 | PC.NURSE ---
pt to ct scan via wheelchair
[2024-01-12 08:54] LABS: RBC,Urine Occasional #/hpf (0-3); WBC,Urine Occasional #/hpf (0-3)
[2024-01-12] MEDS: IOPAMIDOL-370 (76%);100ML BOTTLE 75 ML IV (08:54)
[2024-01-12 08:55] LABS: Bacteria,Urine Trace /lpf; Mucus,Urine Trace /lpf
[2024-01-12] MEDS: diazePAM 5MG TABLET 5 MG PO (10:30)
[2024-01-12 10:48] VITALS: BP 168/98; PULSE 70; RESP 18; TEMP 36.6; O2SAT 98
== END 2024-01-12 10:49 | disposition home or self-care (01) ==
PROVIDERS: Emergency Provider Emergency Medicine; PCP Nurse Practitioner
DX: M54.6 Pain in thoracic spine (principal); M62.830 Muscle spasm of back; R10.9 Unspecified abdominal pain; R11.2 Nausea with vomiting, unspecified; F17.210 Nicotine dependence, cigarettes, uncomplicated; E11.9 Type 2 diabetes mellitus without complications; I10 Essential (primary) hypertension; Z79.84 Long term (current) use of oral hypoglycemic drugs; E66.01 Morbid (severe) obesity due to excess calories; Z68.42 Body mass index [BMI] 45.0-49.9, adult
CPT/HCPCS: 72128; 72131; 74177; 80053; 81001; 83690; 84484; 84703; 85025; 93005; 96374; 96375; 99285; J0131; J2405; Q9967

== ENCOUNTER 2024-01-31 14:25 | Emergency (ER) | payer MEDICARE, SELFPAY ==
--- NOTE | 2024-01-31 14:23 | ECG_ITS ---
APPROVED REPORT Exam: Resting ECG HR:74 bpm ECG Measurements Heart Rate 74 AXES [place] 148 P 46 QRSd 95 QRS 51 QT 389 T 54 QTc 416 Conclusion SINUS RHYTHM NORMAL ECG Electronically signed by : JADA BOSS, 01/31/2024 16:25:55
[2024-01-31 14:26] VITALS: BP 186/89; PULSE 73; RESP 18; TEMP 36.6; O2SAT 98; BMI 44.0
--- NOTE | 2024-01-31 14:30 | XR_ITS ---
FINAL REPORT CLINICAL HISTORY: Nonspecific chest pain COMPARISON: None FINDINGS: Two views of the chest were obtained. The heart size and pulmonary vascularity are within normal limits. The mediastinum is normal. No acute pulmonary abnormality is identified. There is no pneumothorax. The bony thorax is intact. IMPRESSION: No active cardiopulmonary disease. Reviewed, Interpreted and Dictated by Satinder Chatman III, MD Transcribed by Imani Oglesby Authenticated and [facility]
--- NOTE | 2024-01-31 14:32 | ED_ITS ---
Discharge Plan Disposition Patient Disposition: Home, Self-Care Condition: Good Prescriptions Prescriptions: No Action amitriptyline 25 mg tablet 25 - 75 mg PO HS Patient Comments: TAKE 1 TO 3 TABLETS BY MOUTH NIGHTLY NEEDED FOR SLEEP. aspirin 81 mg tablet,chewable 81 mg PO DAILY ergocalciferol (vitamin D2) 1,250 mcg (50,000 unit) capsule 1,250 mcg PO WEEKLY vancomycin 500 mg Recon Soln 125 mg PO Q6H Qty: 25 0RF ondansetron HCl 4 mg tablet 4 mg PO Q6H PRN (Reason: nausea and vomiting) Qty: 10 0RF quetiapine 25 mg tablet 25 - 50 mg PO HSP PRN (Reason: Sleep) Patient Comments: TAKE 1 TO 2 TABLETS BY MOUTH NIGHTLY NEEDED. carvedilol 12.5 mg tablet 12.5 mg PO BID Patient Comments: TAKE 1 TABLET BY MOUTH 2 TIMES DAILY. gabapentin 400 mg capsule 400 mg PO TID sertraline 100 mg tablet 100 mg PO DAILY Patient Comments: TAKE 1 TABLET BY MOUTH DAILY. omeprazole 40 mg capsule,delayed release(DR/EC) 40 mg PO DAILY Patient Comments: TAKE 1 CAPSULE BY MOUTH EVERY 24 HOURS ropinirole 2 mg tablet 4 mg PO HS Patient Comments: TAKE 2 TABLETS BY MOUTH NIGHTLY. metformin 1,000 mg tablet 1,000 mg PO BID Patient Comments: TAKE 1 TABLET BY MOUTH 2 TIMES DAILY. montelukast 10 mg tablet 10 mg PO PM Patient Comments: TAKE ONE TABLET BY MOUTH EVERY EVENING lamotrigine 100 mg tablet 100 mg PO DAILY Patient Comments: TAKE 1 TABLET BY MOUTH DAILY. nabumetone 500 mg tablet 500 mg PO DAILY Patient Comments: TAKE 1 TABLET BY MOUTH DAILY. rosuvastatin 20 mg tablet 20 mg PO HS Patient Comments: TAKE 1 TABLET BY MOUTH NIGHTLY. budesonide-formoterol [Symbicort] 160-4.5 mcg/actuation HFA aerosol inhaler 2 puff INHALATION BID Patient Comments: INHALE 2 PUFFS INTO THE LUNGS 2 TIMES DAILY. methocarbamol 750 mg tablet 750 mg PO Q8H PRN (Reason: pain) Qty: 20 0RF lidocaine [Lidoderm] 5 % adhesive patch,medicated 1 patch topical DAILY Qty: 15 0RF Rx Instructions: leave on most painful area for up to 12 hrs ketorolac 10 mg tablet 10 mg PO Q8H PRN (Reason: pain) 1 Days Qty: 14 0RF Referrals Follow up/Referrals: [facility] [Referring] - See instructions Provider,Referral, [Primary Care Provider] - See instructions Activity Restrictions/Add. Instructions Additional Instructions/Restrictions: Follow-up with your PCP for further evaluation of your symptoms. I have referred you to gastroenterology and you may also need outpatient gastric imaging. Return to ER as needed for any worsening signs or symptoms. Clinical Impressions Clinical Impression: Acute chest pain, Nausea vomiting and diarrhea Stand Alone Forms Stand Alone Forms: Work/School Release Discharge ED Provider: Alfredo Miles HPI <JUSTIN Treviño - Last Filed: 01/31/24 17:20> General Chief Complaint: Chest Pain Stated Complaint: chest pain Time Seen by Provider: 01/31/24 14:32 Mode of Arrival: Ambulatory Source of Information: Patient Limitations: No Limitations Description of Symptoms (Recalled from ER Triage Doc. by RN): pt presents to ED c/o chest pain that started 3 days prior. per report pt has a hx of cardiac stents x 1. History of Present Illness HPI narrative: Patient here for evaluation of chest pain . Patient gives a 3-day history of intermittent central chest pressure that radiates to her back. Patient has a past medical history of a reported RI with stent placement done in October of this year at [facility] in [place]. Patient reports nausea and several episodes of vomiting but no diarrhea shortness of breath fever chills hemoptysis hematochezia melena hematemesis hematuria. Patient states that she has been having symptoms since 1230 today when she awoke. She states her last episode prior to that was around 7:30 PM last night that lasted for several hours as well. Patient additionally reports right upper quadrant abdominal pain currently but has no association with food. She rates that pain as moderate. Related Data Home Medications Medication Instructions Recorded Confirmed budesonide-formoterol HFA 160 2 puff inhalation BID Asthma 07/10/22 07/15/22 mcg-4.5 mcg/actuation aerosol inhaler (Symbicort) carvedilol 12.5 mg tablet 12.5 mg PO BID Hypertension 07/10/22 07/15/22 gabapentin 400 mg capsule 400 mg PO TID nerve pain 07/10/22 07/15/22 lamotrigine 100 mg tablet 100 mg PO DAILY bipolar 07/10/22 07/15/22 metformin 1,000 mg tablet 1,000 mg PO BID Diabetes 07/10/22 07/15/22 montelukast 10 mg tablet 10 mg PO PM allergies 07/10/22 07/15/22 nabumetone 500 mg tablet 500 mg PO DAILY Pain 07/10/22 07/15/22 omeprazole 40 mg capsule,delayed 40 mg PO DAILY GERD 07/10/22 07/15/22 release quetiapine 25 mg tablet 25 - 50 mg PO HSP PRN Sleep 07/10/22 07/15/22 ropinirole 2 mg tablet 4 mg PO HS restless leg syndrome 07/10/22 07/15/22 rosuvastatin 20 mg tablet 20 mg PO HS Cholesterol 07/10/22 07/15/22 sertraline 100 mg tablet 100 mg PO DAILY Depression 07/10/22 07/15/22 amitriptyline 25 mg tablet 25 - 75 mg PO HS SLEEP 07/16/22 07/16/22 aspirin 81 mg chewable tablet 81 mg PO DAILY HEART HEALTH 07/16/22 07/16/22 ergocalciferol (vitamin D2) 1,250 1,250 mcg PO WEEKLY Supplement 07/16/22 07/16/22 mcg (50,000 unit) capsule Previous Rx's Medication Instructions Recorded ondansetron HCl 4 mg tablet 4 mg PO Q6H PRN nausea and 07/17/22 vomiting #10 tabs vancomycin 500 mg intravenous 125 mg PO Q6H #25 ea 07/17/22 solution ketorolac 10 mg tablet 10 mg PO Q8H PRN pain 1 day #14 01/12/24 tabs lidocaine 5 % topical patch 1 patch topical DAILY #15 ea 01/12/24 (Lidoderm) methocarbamol 750 mg tablet 750 mg PO Q8H PRN pain #20 tabs 01/12/24 Allergies Allergy/AdvReac Type Severity Reaction Status Date / Time latex Allergy Verified 01/12/24 07:25 Penicillins Allergy Unknown Verified 12/05/23 12:52 allergy reaction Sulfa (Sulfonamide Allergy Unknown Verified 12/05/23 12:52 Antibiotics) allergy reaction PFSH <JUSTIN Treviño - Last Filed: 01/31/24 17:20> [facility] Disclaimer: The information contained in this section may have been updated after the patient was seen, as this information can be updated by other users. Medical History Diabetes mellitus, type 2 Surgical History S/P carpal tunnel release Family History Other Family history of cancer Social History Smoking Status: Current every day smoker second hand exposure: No alcohol intake: never substance use type: methamphetamine current occupational status: other Travel in the last 8 weeks: None household members: other housing: apartment <JUSTIN Treviño - Last Filed: 01/31/24 17:20> ROS Obtained: Yes Systems reviewed as appropriate & no additional complaints except as documented Physical Exam <JUSTIN Treviño - Last Filed: 01/31/24 17:20> General General appearance: alert and in no apparent distress Eye Eye exam: Absent jaundice Chest Chest inspection: Present normal inspection, symmetric chest wall rise and tenderness (Patient has bilateral anterior chest tenderness to palpation. No deformities contusions abrasions noted.) Respiratory Respiratory exam: Present normal lung sounds bilaterally; Absent respiratory distress, wheezes, stridor or accessory muscle use Cardiovascular Cardiovascular exam: Present regular rate, normal rhythm, normal heart sounds, +S1 and +S2 Abdominal Exam Abdominal exam: Present soft (Central obesity), tenderness (Diffusely mildly tender to palpation but more focally so in the right upper quadrant.), rigidity and normal bowel sounds; Absent guarding or rebound Extremities Exam Extremities exam: Present normal inspection and full ROM Back Exam Back exam: Present normal inspection and full ROM; Absent tenderness Neurological Exam Neurological exam: Present alert and oriented X3 Psychiatric Psychiatric exam: Present normal affect Skin Skin exam: Present warm, dry and normal color HEART Score <JUSTIN Treviño - Last Filed: 01/31/24 17:20> HEART Score HEART Score assessment performed?: Yes History (anamnesis): Slightly suspicious ECG: Normal Age: <45 years Risk factors: Atherosclerosis history Troponin: </= normal limit HEART Score: 2 <Alfredo Miles MD - Last Filed: 01/31/24 18:44> HEART Score HEART Score: 2 Critical Care <JUSTIN Treviño - Last Filed: 01/31/24 17:20> Critical Care Time Critical Care Time: No Medical Decision Making <JUSTIN Treviño - Last Filed: 01/31/24 17:20> Medical Records Medical records reviewed: Yes I reviewed the patient's medical records. [place] Inquiry Pt receiving controlled substance: No Vital Signs Vital Signs: 01/31/24 14:26 01/31/24 17:26 Temperature 97.8 F 98.0 F Temperature Source Oral Pulse Rate 78 Pulse Rate [Right Radial] 73 Respiratory Rate 18 20 Blood Pressure 120/70 Blood Pressure [Right Arm] 186/89 H Blood Pressure Mean [Right Arm] 121 Blood Pressure Source [Right Arm] Automatic Cuff Blood Pressure Position [Right Arm] Sitting 02 Sat by Pulse Oximetry 98 Oxygen Delivery Method Room Air Room Air Lab Data Lab results reviewed: Yes I reviewed the patient's lab results. Labs: Lab Results 01/31/24 14:33: WBC 5.3, RBC 4.72, Hgb 13.3, Hct 40.7, MCV 86.4, MCH 28.3, MCHC 32.8, RDW 14.5, Plt Count 159, MPV 9.4, Neut % (Auto) 50.0, Lymph % (Auto) 40.7, [place] % (Auto) 6.0, Eos % (Auto) 2.1, Baso % (Auto) 1.1, Neut # (Auto) 2.6, Lymph # (Auto) 2.1, [place] # (Auto) 0.3, Eos # (Auto) 0.1, Baso # (Auto) 0.1, Sodium 138, Potassium 4.2, Chloride 107, Carbon Dioxide 25, Anion Gap 10.2, BUN 13, Creatinine 0.70, Estimated Creat Clear 98, Estimated GFR 92, Est GFR ( Amer) 111, Glucose 152 H, Calcium 9.3, Total Bilirubin 0.4, AST 33, ALT 31, Alkaline Phosphatase 56, Troponin I < 0.01, NT-Pro-B Natriuret Pep 171 H, Total Protein 7.6, Albumin 4.0, Globulin 3.6 H, Albumin/Globulin Ratio 1.1, Lipase 62, Serum HCG, Qual Negative 01/31/24 14:47: SARS-CoV-2 (PCR) Not detected, Influenza A Untype (PCR) Not detected, Influenza Type B (PCR) Not detected 01/31/24 14:50: VBG pH 7.39, VBG pCO2 37.6, VBG pO2 107.2 H, VBG HCO3 22.5 L, VBG Total CO2 23.6, VBG O2 Saturation 97.8 H, VBG Base Excess -2.4, VBG Lactic Acid 1.5 01/31/24 14:33 01/31/24 14:33 Response Orders (Tests/Meds): ED MEDICATIONS Discontinued Medications Generic Name Dose Route Start Last Admin Trade Name Freq PRN Reason Stop Dose Admin Acetaminophen 1,000 mg 01/31/24 14:38 01/31/24 14:55 Acetaminophen 1,000mg/100ml Vial IV 01/31/24 14:39 1,000 mg ONCE ONE Administration Belladonna Alkaloids 60 ml 01/31/24 14:38 01/31/24 14:55 Belladonna Alkaloids 60 Ml Ml PO 01/31/24 14:39 60 ml ONCE ONE Administration Iopamidol 75 ml 01/31/24 15:40 01/31/24 15:42 Iopamidol-370 (76%);100ml Bottle IV 01/31/24 15:41 75 ml ONCE ONE Administration Ketorolac Tromethamine 15 mg 01/31/24 14:38 01/31/24 14:55 Ketorolac 30mg/Ml Vial IV 01/31/24 14:39 15 mg ONCE ONE Administration Ondansetron HCl 4 mg 01/31/24 14:38 01/31/24 14:45 Ondansetron 4mg Odt SL 01/31/24 14:39 Not Given ONCE ONE Ondansetron HCl 4 mg 01/31/24 14:46 01/31/24 14:55 Ondansetron 4mg/2ml Vial IV 01/31/24 14:47 4 mg ONCE ONE Administration Sodium Chloride 10 ml 01/31/24 14:35 Sodium Chloride 0.9% 10ml Flush Syringe IV 03/01/24 14:34 NEEDED PRN Maintain IV Site Sodium Chloride 10 ml 01/31/24 15:40 01/31/24 15:42 Sodium Chloride 0.9% 10ml Syr (Rad Only) IV 01/31/24 15:41 10 ml ONCE ONE Administration Sodium Chloride 50 ml 01/31/24 15:40 01/31/24 15:42 0.9 % Sodium Chloride 50 Ml Vial IV 01/31/24 15:41 50 ml ONCE ONE Administration ORDERS Category Date Time Status CT abdomen pelvis w con Stat Cat Scan 01/31/24 14:[address] angio chest PE protocol Stat Cat Scan 01/31/24 14:58 Completed Chest XR 2 view (NOT portable) [XR chest 2V] Stat Exams 01/31/24 14:30 Completed BNP [NT Pro Brain Natriuretic Pep.] Stat Lab 01/31/24 14:33 Completed Complete Blood Count Auto Diff Stat Lab 01/31/24 14:33 Completed Comprehensive Metabolic Panel Stat Lab 01/31/24 14:33 Completed HCG Qualitative, Serum Stat Lab 01/31/24 14:33 Completed INR [Prothrombin Time INR] Stat Lab 01/31/24 14:39 Ordered Lactic Acid Stat Lab 01/31/24 14:39 Ordered Lipase Stat Lab 01/31/24 14:33 Completed Rapid PCR Covid and Flu A/B Stat Lab 01/31/24 14:47 Completed Troponin I Q3H Lab 01/31/24 20:30 Ordered Troponin I Stat Lab 01/31/24 14:33 Completed VBG [Venous Blood Gas] Stat RT 01/31/24 14:50 Completed MDM Narrative Medical Decision Narrative: In summary patient is a 43-year-old female who presents to the emergency department for evaluation of chest pain nausea vomiting abdominal pain. Patient is hemodynamically stable upon arrival, afebrile. Physical exam is remarkable for chest wall tenderness to palpation bilaterally, diffuse abdominal tenderness with focal tenderness in the right upper quadrant but no peritoneal signs rigidity masses rebound or guarding, normal breath sounds normal heart sounds. Differential diagnosis includes muscular strain due to vomiting, ACS, acute cholecystitis versus cholelithiasis, gastroenteritis, PE, dissection. Initial workup will be conducted with hematologic labs, CTA PE protocol and CTA of abdomen urinalysis hCG. Initial interventions include Toradol Tylenol and GI cocktail continuous cardiac monitoring and continuous pulse oximetry. Initial workup reviewed by me shows a normal white count undetectable troponin and the remainder of her laboratory work is nonactionable and my informal review of her imaging shows a debris-filled stomach that is not dilated and otherwise no acute processes noted with radiologist read pending.. Upon repeat evaluation patient reports chest pain is 0 after interventions.. Given this patient is appropriate for discharge with close follow-up with her PCP for possible workup of gastroparesis with a gastric emptying study and also an EGD given that her symptoms resolved after ingestion of GI cocktail.. <Alfredo Miles MD - Last Filed: 01/31/24 18:44> Vital Signs Vital Signs: 01/31/24 14:26 01/31/24 17:26 Temperature 97.8 F 98.0 F Temperature Source Oral Pulse Rate 78 Pulse Rate [Right Radial] 73 Respiratory Rate 18 20 Blood Pressure 120/70 Blood Pressure [Right Arm] 186/89 H Blood Pressure Mean [Right Arm] 121 Blood Pressure Source [Right Arm] Automatic Cuff Blood Pressure Position [Right Arm] Sitting 02 Sat by Pulse Oximetry 98 Oxygen Delivery Method Room Air Room Air Lab Data Labs: Lab Results 01/31/24 14:33: WBC 5.3, RBC 4.72, Hgb 13.3, Hct 40.7, MCV 86.4, MCH 28.3, MCHC 32.8, RDW 14.5, Plt Count 159, MPV 9.4, Neut % (Auto) 50.0, Lymph % (Auto) 40.7, [place] % (Auto) 6.0, Eos % (Auto) 2.1, Baso % (Auto) 1.1, Neut # (Auto) 2.6, Lymph # (Auto) 2.1, [place] # (Auto) 0.3, Eos # (Auto) 0.1, Baso # (Auto) 0.1, Sodium 138, Potassium 4.2, Chloride 107, Carbon Dioxide 25, Anion Gap 10.2, BUN 13, Creatinine 0.70, Estimated Creat Clear 98, Estimated GFR 92, Est GFR ( Amer) 111, Glucose 152 H, Calcium 9.3, Total Bilirubin 0.4, AST 33, ALT 31, Alkaline Phosphatase 56, Troponin I < 0.01, NT-Pro-B Natriuret Pep 171 H, Total Protein 7.6, Albumin 4.0, Globulin 3.6 H, Albumin/Globulin Ratio 1.1, Lipase 62, Serum HCG, Qual Negative 01/31/24 14:47: SARS-CoV-2 (PCR) Not detected, Influenza A Untype (PCR) Not detected, Influenza Type B (PCR) Not detected 01/31/24 14:50: VBG pH 7.39, VBG pCO2 37.6, VBG pO2 107.2 H, VBG HCO3 22.5 L, VBG Total CO2 23.6, VBG O2 Saturation 97.8 H, VBG Base Excess -2.4, VBG Lactic Acid 1.5 Response Orders (Tests/Meds): ED MEDICATIONS Discontinued Medications Generic Name Dose Route Start Last Admin Trade Name Freq PRN Reason Stop Dose Admin Acetaminophen 1,000 mg 01/31/24 14:38 01/31/24 14:55 Acetaminophen 1,000mg/100ml Vial IV 01/31/24 14:39 1,000 mg ONCE ONE Administration Belladonna Alkaloids 60 ml 01/31/24 14:38 01/31/24 14:55 Belladonna Alkaloids 60 Ml Ml PO 01/31/24 14:39 60 ml ONCE ONE Administration Iopamidol 75 ml 01/31/24 15:40 01/31/24 15:42 Iopamidol-370 (76%);100ml Bottle IV 01/31/24 15:41 75 ml ONCE ONE Administration Ketorolac Tromethamine 15 mg 01/31/24 14:38 01/31/24 14:55 Ketorolac 30mg/Ml Vial IV 01/31/24 14:39 15 mg ONCE ONE Administration Ondansetron HCl 4 mg 01/31/24 14:38 01/31/24 14:45 Ondansetron 4mg Odt SL 01/31/24 14:39 Not Given ONCE ONE Ondansetron HCl 4 mg 01/31/24 14:46 01/31/24 14:55 Ondansetron 4mg/2ml Vial IV 01/31/24 14:47 4 mg ONCE ONE Administration Sodium Chloride 10 ml 01/31/24 14:35 Sodium Chloride 0.9% 10ml Flush Syringe IV 03/01/24 14:34 NEEDED PRN Maintain IV Site Sodium Chloride 10 ml 01/31/24 15:40 01/31/24 15:42 Sodium Chloride 0.9% 10ml Syr (Rad Only) IV 01/31/24 15:41 10 ml ONCE ONE Administration Sodium Chloride 50 ml 01/31/24 15:40 01/31/24 15:42 0.9 % Sodium Chloride 50 Ml Vial IV 01/31/24 15:41 50 ml ONCE ONE Administration ORDERS Category Date Time Status CT abdomen pelvis w con Stat Cat Scan 01/31/24 14:[address] angio chest PE protocol Stat Cat Scan 01/31/24 14:58 Completed Chest XR 2 view (NOT portable) [XR chest 2V] Stat Exams 01/31/24 14:30 Completed BNP [NT Pro Brain Natriuretic Pep.] Stat Lab 01/31/24 14:33 Completed Complete Blood Count Auto Diff Stat Lab 01/31/24 14:33 Completed Comprehensive Metabolic Panel Stat Lab 01/31/24 14:33 Completed HCG Qualitative, Serum Stat Lab 01/31/24 14:33 Completed INR [Prothrombin Time INR] Stat Lab 01/31/24 14:39 Ordered Lactic Acid Stat Lab 01/31/24 14:39 Ordered Lipase Stat Lab 01/31/24 14:33 Completed Rapid PCR Covid and Flu A/B Stat Lab 01/31/24 14:47 Completed Troponin I Q3H Lab 01/31/24 20:30 Ordered Troponin I Stat Lab 01/31/24 14:33 Completed VBG [Venous Blood Gas] Stat RT 01/31/24 14:50 Completed MDM Narrative Medical Decision Narrative: In summary patient is a 43-year-old female who presents to the emergency department for evaluation of chest pain nausea vomiting abdominal pain. Patient is hemodynamically stable upon arrival, afebrile. Physical exam is remarkable for chest wall tenderness to palpation bilaterally, diffuse abdominal tenderness with focal tenderness in the right upper quadrant but no peritoneal signs rigidity masses rebound or guarding, normal breath sounds normal heart sounds. Differential diagnosis includes muscular strain due to vomiting, ACS, acute cholecystitis versus cholelithiasis, gastroenteritis, PE, dissection. Initial workup will be conducted with hematologic labs, CTA PE protocol and CTA of abdomen urinalysis hCG. Initial interventions include Toradol Tylenol and GI cocktail continuous cardiac monitoring and continuous pulse oximetry. Initial workup reviewed by me shows a normal white count undetectable troponin and the remainder of her laboratory work is nonactionable and my informal review of her imaging shows a debris-filled stomach that is not dilated and otherwise no acute processes noted with radiologist read pending.. Upon repeat evaluation patient reports chest pain is 0 after interventions.. Given this patient is appropriate for discharge with close follow-up with her PCP for possible workup of gastroparesis with a gastric emptying study and also an EGD given that her symptoms resolved after ingestion of GI cocktail.. I was consulted by the EMERY, and we discussed the complexity of the problems being addressed. I approved the treatment and management plan for this patient?s care in the Emergency Department, thus performing a substantive portion of the medical decision making. Alfredo Miles MD
[2024-01-31 14:42] LABS: Basophils # 0.1 K/mm3 (0-0.2); Basophils % 1.1 % (0.1-2.0); Eosinophils # 0.1 K/mm3 (0.0-0.4); Eosinophils % 2.1 % (0.1-12.0); Hematocrit 40.7 % (37.0-47.0); Hemoglobin 13.3 g/dL (12.2-16.2); Lymphocytes # 2.1 K/mm3 (0.7-4.5); Lymphocytes % 40.7 % (10-50); Mean Corpuscular HGB Conc 32.8 g/dL (31.8-35.4); Mean Corpuscular Hemoglobin 28.3 pg (27.0-31.2); Mean Corpuscular Volume 86.4 fl (81-99); Mean Platelet Volume 9.4 fl (7.4-10.4); Monocytes # 0.3 K/mm3 (0.1-1.0); Neutrophils # 2.6 K/mm3 (1.8-7.8); Platelet Count 159 K/mm3 (142-424); Red Blood Count 4.72 M/mm3 (4.20-5.40); Red Cell Distribution Width 14.5 % (11.5-17.5); White Blood Count 5.3 K/mm3 (4.8-10.8)
[2024-01-31 14:49] LABS: Coronavirus 19, PCR Not Detected (NotDetected); Influenza A, PCR Not Detected (NotDetected); Influenza B, PCR Not Detected (NotDetected)
--- NOTE | 2024-01-31 14:52 | PC.NURSE ---
o/p with for patient information.
[2024-01-31 14:54] LABS: Lactate Venous 1.5 mmol/L (0.4-2.0); VBG Base Excess -2.4 mmol/L (-2.4-2.3); VBG HCO3 22.5 mmol/L (23-30); VBG Oxygen Saturation 97.8 % (50-70); VBG PCO2 37.6 mmol/L (35-51); VBG PH 7.39 mmol/L (7.31-7.41); VBG PO2 107.2 mmol/L (28-40); VBG Total CO2 23.6 mmol/L (23-27)
[2024-01-31 14:55] LABS: Chloride 107 mmol/L (98-107); Potassium 4.2 mmoL/L (3.5-5.1); Sodium 138 mmol/L (136-145)
[2024-01-31] MEDS: ACETAMINOPHEN 1,000MG/100ML VIAL 1000 MG IV (14:55)
[2024-01-31] MEDS: BELLADONNA ALKALOIDS 60 ML ML PO (14:55)
[2024-01-31] MEDS: ONDANSETRON 4MG/2ML VIAL 4 MG IV (14:55)
[2024-01-31] MEDS: KETOROLAC 30MG/ML VIAL 15 MG IV (14:55)
[2024-01-31 14:57] LABS: Blood Urea Nitrogen 13 mg/dl (7-17); Creatinine Clearance Estimated 98 mL/min (50-200); Estimated Glomerular Filt Rate 92 ml/min (>60); GFR (African American) 111 ML/MIN (>60); Lipase 62 U/L (23-300)
[2024-01-31 14:58] LABS: Alanine Aminotransferase 31 U/L (12-78); Albumin/Globulin Ratio 1.1 (1.1-1.8); Alkaline Phosphatase 56 U/L (38-126); Anion Gap 10.2 mEq/L (5-15); Aspartate Amino Transferase 33 U/L (14-36); Bilirubin,Total 0.4 mg/dl (0.2-1.3); Calcium 9.3 mg/dl (8.4-10.2); Carbon Dioxide 25 mmol/L (22.0-30.0); Globulin 3.6 g/dL (1.3-3.2); Glucose 152 mg/dl (74-100); Total Protein,Serum 7.6 g/dl (6.3-8.2)
--- NOTE | 2024-01-31 14:58 | CT_ITS ---
FINAL REPORT CLINICAL HISTORY: Chest pain FINDINGS: Thin section axial CT images of the chest were obtained with contrast. 3D reformatted images were also obtained. This study was performed with techniques to keep radiation doses as low as reasonably achievable (ALARA). Individualized dose reduction techniques using automated exposure control or adjustment of mA and/or kV according to the patient''s size were employed. There is no evidence of pulmonary embolism. There is no evidence of thoracic aortic aneurysm or dissection. There is no evidence of mediastinal or hilar mass or adenopathy. There is no evidence of pulmonary mass or nodule. No localized inflammatory process is seen within the lungs. Limited images of the upper abdomen are unremarkable. IMPRESSION: No evidence of pulmonary embolism. No mass or localized inflammatory process. Reviewed, Interpreted and Dictated by Satinder Chatman III, MD Transcribed by Sheila Watkins Authenticated and [facility]
--- NOTE | 2024-01-31 14:59 | CT_ITS ---
FINAL REPORT TECHNIQUE: Postcontrast axial images through the abdomen and pelvis were performed. This study was performed with techniques to keep radiation doses as low as reasonably achievable, (ALARA). Individualized dose reduction techniques using automated exposure control or adjustment of mA and/or kV according to the patient's size were employed. CLINICAL HISTORY: Acute abdominal pain FINDINGS: Abdomen: The lung bases are clear. The liver has a mildly nodular contour, cirrhosis is not excluded. The gallbladder is partially collapsed with mild wall thickening. Moderate vascular calcification is identified. The spleen is unremarkable. The adrenals are normal. The pancreas is unremarkable. The kidneys enhance appropriately. The aorta is normal in caliber. No free fluid or adenopathy is identified. No findings for mechanical bowel obstruction are identified. Pelvis: The appendix is normal. Scattered diverticula are identified. The urinary bladder is unremarkable. No free fluid, free air, abscess or adenopathy is identified. IMPRESSION: Possible cirrhosis. Gallbladder partially collapsed with mild wall thickening. Reviewed, Interpreted and Dictated by Satinder Chatman III, MD Transcribed by Sheila Watkins Authenticated and . [facility]
--- NOTE | 2024-01-31 15:03 | PC.NURSE ---
Pt returned from RAD
[2024-01-31 15:06] LABS: HCG Qualitative, Serum Negative (Negative)
[2024-01-31 15:08] LABS: NT Pro Brain Natriuretic Pep. 171 pg/mL (0-125)
[2024-01-31 15:24] LABS: Troponin I < 0.01 ng/ml (0.00-0.034)
[2024-01-31] MEDS: IOPAMIDOL-370 (76%);100ML BOTTLE 75 ML IV (15:42)
[2024-01-31] MEDS: 0.9 % SODIUM CHLORIDE 50 ML VIAL IV (15:42)
[2024-01-31] MEDS: SODIUM CHLORIDE 0.9% 10ML SYR (RAD ONLY) 10 ML IV (15:42)
--- NOTE | 2024-01-31 17:19 | PC.NURSE ---
PATIENT PROVIDED WITH A BLANKET. DON IN TO DISCUSS DISHCARGE PLAN WITH PATIENT.
[2024-01-31 17:26] VITALS: BP 120/70; PULSE 78; RESP 20; TEMP 36.7; O2SAT 98
== END 2024-01-31 17:27 | disposition home or self-care (01) ==
PROVIDERS: Emergency Medicine; Physician Assistant; Emergency Provider Emergency Medicine
DX: R07.9 Chest pain, unspecified (principal); R10.11 Right upper quadrant pain; R11.2 Nausea with vomiting, unspecified; R19.7 Diarrhea, unspecified; E11.9 Type 2 diabetes mellitus without complications; F17.210 Nicotine dependence, cigarettes, uncomplicated; Z79.84 Long term (current) use of oral hypoglycemic drugs; Z86.79 Personal history of other diseases of the circulatory system; Z95.5 Presence of coronary angioplasty implant and graft
CPT/HCPCS: 71046; 71275; 74177; 80053; 82803; 83690; 83880; 84484; 84703; 85025; 87636; 93005; 96374; 96375; 99285; J0131; J2405; Q9967

== ENCOUNTER 2024-02-16 23:20 | Emergency (ER) | payer MEDICARE, SELFPAY ==
[2024-02-16 23:23] VITALS: BP 159/98; PULSE 80; RESP 20; TEMP 36.5; O2SAT 97; BMI 46.2
--- NOTE | 2024-02-16 23:36 | HMH.EDGENADL ---
Discharge Plan Disposition Patient Disposition: Home, Self-Care Prescriptions Prescriptions: New gabapentin 300 mg capsule 300 mg PO TID Qty: 30 0RF cyclobenzaprine 5 mg tablet 10 mg PO TID PRN (Reason: muscle spasm) Qty: 30 0RF No Action amitriptyline 25 mg tablet 25 - 75 mg PO HS Patient Comments: TAKE 1 TO 3 TABLETS BY MOUTH NIGHTLY NEEDED FOR SLEEP. aspirin 81 mg tablet,chewable 81 mg PO DAILY ergocalciferol (vitamin D2) 1,250 mcg (50,000 unit) capsule 1,250 mcg PO WEEKLY vancomycin 500 mg Recon Soln 125 mg PO Q6H Qty: 25 0RF ondansetron HCl 4 mg tablet 4 mg PO Q6H PRN (Reason: nausea and vomiting) Qty: 10 0RF quetiapine 25 mg tablet 25 - 50 mg PO HSP PRN (Reason: Sleep) Patient Comments: TAKE 1 TO 2 TABLETS BY MOUTH NIGHTLY NEEDED. carvedilol 12.5 mg tablet 12.5 mg PO BID Patient Comments: TAKE 1 TABLET BY MOUTH 2 TIMES DAILY. gabapentin 400 mg capsule 400 mg PO TID sertraline 100 mg tablet 100 mg PO DAILY Patient Comments: TAKE 1 TABLET BY MOUTH DAILY. omeprazole 40 mg capsule,delayed release(DR/EC) 40 mg PO DAILY Patient Comments: TAKE 1 CAPSULE BY MOUTH EVERY 24 HOURS ropinirole 2 mg tablet 4 mg PO HS Patient Comments: TAKE 2 TABLETS BY MOUTH NIGHTLY. metformin 1,000 mg tablet 1,000 mg PO BID Patient Comments: TAKE 1 TABLET BY MOUTH 2 TIMES DAILY. montelukast 10 mg tablet 10 mg PO PM Patient Comments: TAKE ONE TABLET BY MOUTH EVERY EVENING lamotrigine 100 mg tablet 100 mg PO DAILY Patient Comments: TAKE 1 TABLET BY MOUTH DAILY. nabumetone 500 mg tablet 500 mg PO DAILY Patient Comments: TAKE 1 TABLET BY MOUTH DAILY. rosuvastatin 20 mg tablet 20 mg PO HS Patient Comments: TAKE 1 TABLET BY MOUTH NIGHTLY. budesonide-formoterol [Symbicort] 160-4.5 mcg/actuation HFA aerosol inhaler 2 puff INHALATION BID Patient Comments: INHALE 2 PUFFS INTO THE LUNGS 2 TIMES DAILY. methocarbamol 750 mg tablet 750 mg PO Q8H PRN (Reason: pain) Qty: 20 0RF lidocaine [Lidoderm] 5 % adhesive patch,medicated 1 patch topical DAILY Qty: 15 0RF Rx Instructions: leave on most painful area for up to 12 hrs ketorolac 10 mg tablet 10 mg PO Q8H PRN (Reason: pain) 1 Days Qty: 14 0RF Referrals Follow up/Referrals: Xochitl Lim APRN [Primary Care Provider] - See instructions Activity Restrictions/Add. Instructions Additional Instructions/Restrictions: Please follow-up with your primary care provider. Please return to the emergency department if you develop any new or worsening symptoms or become concerned for your health. Please take gabapentin and Flexeril as needed for pain. Clinical Impressions Clinical Impression: Sciatica associated with disorder of lumbar spine Instructions Patient Instructions: DI for Low Back Pain Discharge ED Provider: Hernando Smart Adult HPI General Chief complaint: Back Pain/Injury Stated complaint: psiatic nerve, pain from both side to legs Time Seen by Provider: 02/16/24 23:31 History of Present Illness HPI narrative: 43-year-old female with history of sciatica, degenerative disc disease, obesity, presents with left low back pain radiating into the lower leg. She reports that is consistent with prior sciatica. Reports that it is fairly severe this time. She denies any weakness in the legs but does report pain with movement. Denies any groin numbness. Denies any new bowel or bladder incontinence, does report some chronic incontinence that is unchanged. Denies any recent fever or illness. No history of IV drug use. No recent trauma. She has been trying to do symptomatic care at home without improvement. She was previously prescribed gabapentin but has not seen her PCP in a while and so has not been taking it. Related Data Home Medications Medication Instructions Recorded Confirmed budesonide-formoterol HFA 160 2 puff inhalation BID Asthma 07/10/22 07/15/22 mcg-4.5 mcg/actuation aerosol inhaler (Symbicort) carvedilol 12.5 mg tablet 12.5 mg PO BID Hypertension 07/10/22 07/15/22 gabapentin 400 mg capsule 400 mg PO TID nerve pain 07/10/22 07/15/22 lamotrigine 100 mg tablet 100 mg PO DAILY bipolar 07/10/22 07/15/22 metformin 1,000 mg tablet 1,000 mg PO BID Diabetes 07/10/22 07/15/22 montelukast 10 mg tablet 10 mg PO PM allergies 07/10/22 07/15/22 nabumetone 500 mg tablet 500 mg PO DAILY Pain 07/10/22 07/15/22 omeprazole 40 mg capsule,delayed 40 mg PO DAILY GERD 07/10/22 07/15/22 release quetiapine 25 mg tablet 25 - 50 mg PO HSP PRN Sleep 07/10/22 07/15/22 ropinirole 2 mg tablet 4 mg PO HS restless leg syndrome 07/10/22 07/15/22 rosuvastatin 20 mg tablet 20 mg PO HS Cholesterol 07/10/22 07/15/22 sertraline 100 mg tablet 100 mg PO DAILY Depression 07/10/22 07/15/22 amitriptyline 25 mg tablet 25 - 75 mg PO HS SLEEP 07/16/22 07/16/22 aspirin 81 mg chewable tablet 81 mg PO DAILY HEART HEALTH 07/16/22 07/16/22 ergocalciferol (vitamin D2) 1,250 1,250 mcg PO WEEKLY Supplement 07/16/22 07/16/22 mcg (50,000 unit) capsule Previous Rx's Medication Instructions Recorded ondansetron HCl 4 mg tablet 4 mg PO Q6H PRN nausea and 07/17/22 vomiting #10 tabs vancomycin 500 mg intravenous 125 mg PO Q6H #25 ea 07/17/22 solution ketorolac 10 mg tablet 10 mg PO Q8H PRN pain 1 day #14 01/12/24 tabs lidocaine 5 % topical patch 1 patch topical DAILY #15 ea 01/12/24 (Lidoderm) methocarbamol 750 mg tablet 750 mg PO Q8H PRN pain #20 tabs 01/12/24 cyclobenzaprine 5 mg tablet 10 mg (2 x 5 mg) PO TID PRN muscle 02/16/24 spasm #30 tabs gabapentin 300 mg capsule 300 mg PO TID #30 caps 02/16/24 Allergies Allergy/AdvReac Type Severity Reaction Status Date / Time latex Allergy Verified 01/12/24 07:25 Penicillins Allergy Unknown Verified 12/05/23 12:52 allergy reaction Sulfa (Sulfonamide Allergy Unknown Verified 12/05/23 12:52 Antibiotics) allergy reaction PFSH PFSH Disclaimer: The information contained in this section may have been updated after the patient was seen, as this information can be updated by other users. Medical History Diabetes mellitus, type 2 Surgical History S/P carpal tunnel release Family History Other Family history of cancer Social History Smoking Status: Current every day smoker second hand exposure: No alcohol intake: never substance use type: methamphetamine current occupational status: other Travel in the last 8 weeks: None household members: other housing: apartment ROS Obtained: Yes All systems reviewed & no additional complaints except as documented Physical Exam General General appearance: alert and obese Comment: Uncomfortable appearing Head Head exam: atraumatic and normocephalic Eye Eye exam: Present normal appearance, PERRL and EOMI ENT ENT exam: Present normal oropharynx and normal external ear exam Neck Neck exam: Present normal inspection and full ROM Chest Chest inspection: Present normal inspection and symmetric chest wall rise; Absent tenderness Respiratory Respiratory exam: Present normal lung sounds bilaterally; Absent respiratory distress Cardiovascular Cardiovascular exam: Present regular rate and normal rhythm Abdominal Exam Abdominal exam: Present soft; Absent distention, tenderness or guarding Extremities Exam Extremities exam: Present normal inspection; Absent edema or joint swelling Back Exam Back exam: Present normal inspection and tenderness (Bilateral lumbar paraspinal tenderness) Neurological Exam Neurological exam: Present alert, oriented X3 and other (Active and passive range of motion intact with pain. No focal weakness in lower extremities. Normal sensation on exam.); Absent motor sensory deficit Psychiatric Psychiatric exam: Present normal affect and normal mood Skin Skin exam: Present warm, dry and normal color Lymphatic Lymphatic Findings: no adenopathy Medical Decision Making Medical Records Medical records reviewed: Yes I reviewed the patient's medical records. [place] Inquiry Pt receiving controlled substance: No [place] was queried for this patient: No Vital Signs: 02/16/24 23:23 02/16/24 23:56 Temperature 97.7 F 98 F Temperature Source Oral Pulse Rate 77 Pulse Rate [Right Radial] 80 Respiratory Rate 20 16 Blood Pressure 164/91 H Blood Pressure [Right Arm] 159/98 H Blood Pressure Mean [Right Arm] 118 Blood Pressure Source Automatic Cuff Blood Pressure Source [Right Arm] Automatic Cuff Blood Pressure Position Sitting Blood Pressure Position [Right Arm] Sitting 02 Sat by Pulse Oximetry 97 Oxygen Delivery Method Room Air Room Air Lab Data Lab results reviewed: Yes I reviewed the patient's lab results. Orders (Tests/Meds): ED MEDICATIONS Discontinued Medications Generic Name Dose Route Start Last Admin Trade Name Fariba PRN Reason Stop Dose Admin Cyclobenzaprine HCl 10 mg 02/16/24 23:49 02/16/24 23:54 Cyclobenzaprine 10mg Tablet PO 02/16/24 23:50 10 mg ONCE ONE Administration Gabapentin 300 mg 02/16/24 23:49 02/16/24 23:54 Gabapentin 300mg Capsule PO 02/16/24 23:50 300 mg ONCE ONE Administration Medical Decision Narrative: 43-year-old female with history of obesity, degenerative disc disease, as well as a variety of other comorbidities presents with left low back pain radiating posteriorly into the left lower extremity. History was obtained interactive discussion with patient, chart review, family. On arrival, patient is [afebrile, hemodynamically stable, satting appropriately, alert, oriented x4, GCS 15], moving all extremities spontaneously. Full physical exam performed and significant for no focal numbness or weakness of the lower extremities, no midline spinal tenderness. Differential includes but is not limited to degenerative disc disease, sciatica, cauda equina, fracture, discitis, epidural hematoma. Patient was given gabapentin and Flexeril for symptomatic management and correction of underlying abnormalities. CT/MRI of the spine was considered, but deemed unnecessary due to no red flag symptoms or history, normal physical exam, no significant concern for spinal cord pathology at this time.. Given patient history, exam and workup, patient's presentation most likely represents acute on chronic sciatica/neuroforaminal narrowing as seen on prior CT. These findings were communicated patient. She was discharged in stable condition with prescription for gabapentin to hold her over until she follows up with her PCP as well as Flexeril. He was given instructions regarding symptomatic care. She was discharged in stable condition. Procedures Risk/Benefits of Procedure(s) Were Explained: Yes Critical Care Critical Care Time Critical Care Time: No
[2024-02-16] MEDS: CYCLOBENZAPRINE 10MG TABLET 10 MG PO (23:54)
[2024-02-16] MEDS: GABAPENTIN 300MG CAPSULE 300 MG PO (23:54)
[2024-02-16 23:56] VITALS: BP 164/91; PULSE 77; RESP 16; TEMP 36.6; O2SAT 98
== END 2024-02-16 23:57 | disposition home or self-care (01) ==
PROVIDERS: Emergency Provider Emergency Medicine; PCP Nurse Practitioner
DX: M54.42 Lumbago with sciatica, left side (principal); F17.210 Nicotine dependence, cigarettes, uncomplicated; E11.9 Type 2 diabetes mellitus without complications; M53.86 Other specified dorsopathies, lumbar region
CPT/HCPCS: 99283

== ENCOUNTER 2024-02-20 12:54 | Emergency (ER) | payer MEDICAID, SELFPAY ==
[2024-02-20 12:54] VITALS: BP 143/99; PULSE 89; RESP 15; TEMP 37.2; O2SAT 98; BMI 46.2
--- NOTE | 2024-02-20 13:46 | PC.NURSE ---
Pt provided with warm blanket
--- NOTE | 2024-02-20 14:03 | ED_ITS ---
<Statement entered by Pavel Donald MD - 02/27/24 09:25> I was consulted by the EMERY, and we discussed the complexity of the problems being addressed. I approved the treatment and management plan for this patient's care in the emergency department, thus performing a substantive portion of the medical decision making. Pavel Donald MD, AME, FACEP Discharge Plan Disposition Patient Disposition: Home, Self-Care Condition: Good Prescriptions Prescriptions: New prednisone 50 mg tablet 50 mg PO DAILY 5 Days Qty: 5 0RF methocarbamol 750 mg tablet 750 mg PO Q6H PRN (Reason: muscle spasm) Qty: 30 0RF No Action amitriptyline 25 mg tablet 25 - 75 mg PO HS Patient Comments: TAKE 1 TO 3 TABLETS BY MOUTH NIGHTLY NEEDED FOR SLEEP. aspirin 81 mg tablet,chewable 81 mg PO DAILY ergocalciferol (vitamin D2) 1,250 mcg (50,000 unit) capsule 1,250 mcg PO WEEKLY vancomycin 500 mg Recon Soln 125 mg PO Q6H Qty: 25 0RF ondansetron HCl 4 mg tablet 4 mg PO Q6H PRN (Reason: nausea and vomiting) Qty: 10 0RF gabapentin 300 mg capsule 300 mg PO TID Qty: 30 0RF cyclobenzaprine 5 mg tablet 10 mg PO TID PRN (Reason: muscle spasm) Qty: 30 0RF quetiapine 25 mg tablet 25 - 50 mg PO HSP PRN (Reason: Sleep) Patient Comments: TAKE 1 TO 2 TABLETS BY MOUTH NIGHTLY NEEDED. carvedilol 12.5 mg tablet 12.5 mg PO BID Patient Comments: TAKE 1 TABLET BY MOUTH 2 TIMES DAILY. gabapentin 400 mg capsule 400 mg PO TID sertraline 100 mg tablet 100 mg PO DAILY Patient Comments: TAKE 1 TABLET BY MOUTH DAILY. omeprazole 40 mg capsule,delayed release(DR/EC) 40 mg PO DAILY Patient Comments: TAKE 1 CAPSULE BY MOUTH EVERY 24 HOURS ropinirole 2 mg tablet 4 mg PO HS Patient Comments: TAKE 2 TABLETS BY MOUTH NIGHTLY. metformin 1,000 mg tablet 1,000 mg PO BID Patient Comments: TAKE 1 TABLET BY MOUTH 2 TIMES DAILY. montelukast 10 mg tablet 10 mg PO PM Patient Comments: TAKE ONE TABLET BY MOUTH EVERY EVENING lamotrigine 100 mg tablet 100 mg PO DAILY Patient Comments: TAKE 1 TABLET BY MOUTH DAILY. nabumetone 500 mg tablet 500 mg PO DAILY Patient Comments: TAKE 1 TABLET BY MOUTH DAILY. rosuvastatin 20 mg tablet 20 mg PO HS Patient Comments: TAKE 1 TABLET BY MOUTH NIGHTLY. budesonide-formoterol [Symbicort] 160-4.5 mcg/actuation HFA aerosol inhaler 2 puff INHALATION BID Patient Comments: INHALE 2 PUFFS INTO THE LUNGS 2 TIMES DAILY. methocarbamol 750 mg tablet 750 mg PO Q8H PRN (Reason: pain) Qty: 20 0RF lidocaine [Lidoderm] 5 % adhesive patch,medicated 1 patch topical DAILY Qty: 15 0RF Rx Instructions: leave on most painful area for up to 12 hrs ketorolac 10 mg tablet 10 mg PO Q8H PRN (Reason: pain) 1 Days Qty: 14 0RF Referrals Follow up/Referrals: Joao Harper MD [Staff Physician] - See instructions Xochitl Lim APRN [Primary Care Provider] - See instructions Activity Restrictions/Add. Instructions Additional Instructions/Restrictions: Please take medications as prescribed. Follow-up with your PCP. I have referred you to pain management locally. Please return to ER for any worsening signs or symptoms. Clinical Impressions Clinical Impression: Sciatica Stand Alone Forms Stand Alone Forms: Work/School Release Instructions Patient Instructions: DI for Back Pain With Sciatica Discharge ED Provider: Alfredo Miles General Adult HPI General Chief complaint: PAIN Stated complaint: Back Pain Time Seen by Provider: 02/20/24 14:02 Mode of Arrival: EMS Source of Information: Patient and EMS Limitations: No Limitations Description of Symptoms (Recalled from ER Triage Doc. by RN): pt presents to ED with c/o lower back pain related to her sciatic pain. pt reports pain located on left side of back. History of Present Illness HPI narrative: Patient presents for evaluation of a sciatica flare. Patient has a longstanding history of sciatica and was previously managed via pain management in [facility]. Patient had a MRI in October and has not been able to follow-up since then. 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 Patient reports over the last 2 days that she has been unable to stand due to the sciatic pain that radiates from her left back down her left leg. This is the worst its ever been. Patient has been extensively worked up in the past however she has not had an MRI in a long time. Patient currently has Flexeril and gabapentin for her sciatica that has not helping. Patient seen in this ER on 02/17/2024 for same complaints at which time the Flexeril and gabapentin was reinitiated. Review of her chart data that shows that she had CTs of the lumbar and thoracic spine that showed degenerative disc disease but no other acute processes. Patient currently denies chest pain shortness of breath fever chills hemoptysis hematochezia melena saddle anesthesia loss of bowel or bladder function. Related Data Home Medications Medication Instructions Recorded Confirmed budesonide-formoterol HFA 160 2 puff inhalation BID Asthma 07/10/22 07/15/22 mcg-4.5 mcg/actuation aerosol inhaler (Symbicort) carvedilol 12.5 mg tablet 12.5 mg PO BID Hypertension 07/10/22 07/15/22 gabapentin 400 mg capsule 400 mg PO TID nerve pain 07/10/22 07/15/22 lamotrigine 100 mg tablet 100 mg PO DAILY bipolar 07/10/22 07/15/22 metformin 1,000 mg tablet 1,000 mg PO BID Diabetes 07/10/22 07/15/22 montelukast 10 mg tablet 10 mg PO PM allergies 07/10/22 07/15/22 nabumetone 500 mg tablet 500 mg PO DAILY Pain 07/10/22 07/15/22 omeprazole 40 mg capsule,delayed 40 mg PO DAILY GERD 07/10/22 07/15/22 release quetiapine 25 mg tablet 25 - 50 mg PO HSP PRN Sleep 07/10/22 07/15/22 ropinirole 2 mg tablet 4 mg PO HS restless leg syndrome 07/10/22 07/15/22 rosuvastatin 20 mg tablet 20 mg PO HS Cholesterol 07/10/22 07/15/22 sertraline 100 mg tablet 100 mg PO DAILY Depression 07/10/22 07/15/22 amitriptyline 25 mg tablet 25 - 75 mg PO HS SLEEP 07/16/22 07/16/22 aspirin 81 mg chewable tablet 81 mg PO DAILY HEART HEALTH 07/16/22 07/16/22 ergocalciferol (vitamin D2) 1,250 1,250 mcg PO WEEKLY Supplement 07/16/22 07/16/22 mcg (50,000 unit) capsule Previous Rx's Medication Instructions Recorded ondansetron HCl 4 mg tablet 4 mg PO Q6H PRN nausea and 07/17/22 vomiting #10 tabs vancomycin 500 mg intravenous 125 mg PO Q6H #25 ea 07/17/22 solution ketorolac 10 mg tablet 10 mg PO Q8H PRN pain 1 day #14 01/12/24 tabs lidocaine 5 % topical patch 1 patch topical DAILY #15 ea 01/12/24 (Lidoderm) methocarbamol 750 mg tablet 750 mg PO Q8H PRN pain #20 tabs 01/12/24 cyclobenzaprine 5 mg tablet 10 mg (2 x 5 mg) PO TID PRN muscle 02/16/24 spasm #30 tabs gabapentin 300 mg capsule 300 mg PO TID #30 caps 02/16/24 methocarbamol 750 mg tablet 750 mg PO Q6H PRN muscle spasm #30 02/20/24 tabs prednisone 50 mg tablet 50 mg PO DAILY 5 days #5 tabs 02/20/24 Allergies Allergy/AdvReac Type Severity Reaction Status Date / Time latex Allergy Verified 01/12/24 07:25 Penicillins Allergy Unknown Verified 12/05/23 12:52 allergy reaction Sulfa (Sulfonamide Allergy Unknown Verified 12/05/23 12:52 Antibiotics) allergy reaction [facility] Disclaimer: The information contained in this section may have been updated after the patient was seen, as this information can be updated by other users. Medical History Diabetes mellitus, type 2 Surgical History S/P carpal tunnel release Family History Other Family history of cancer Social History Smoking Status: Current every day smoker second hand exposure: No alcohol intake: never substance use type: methamphetamine current occupational status: other Travel in the last 8 weeks: None household members: other housing: apartment ROS Obtained: Yes Systems reviewed as appropriate & no additional complaints except as documented Physical Exam General General appearance: alert and in no apparent distress Head Head exam: atraumatic and normal inspection Respiratory Respiratory exam: Present normal lung sounds bilaterally Cardiovascular Cardiovascular exam: Present regular rate, normal rhythm and normal heart sounds Abdominal Exam Abdominal exam: Present soft (Obese) and normal bowel sounds; Absent tenderness, guarding, rebound or rigidity Extremities Exam Extremities exam: Present normal inspection; Absent full ROM (Right lower extremity reduced range of motion due to sciatic and low back pain) or tenderness Back Exam Back exam: Present normal inspection and tenderness (Tender to palpation in the left paraspinous muscles and lumbar spine); Absent full ROM (Diminished range of motion testing due to back pain) Neurological Exam Neurological exam: Present alert, oriented X3 and CN II-XII intact; Absent normal gait (Antalgic gait) Psychiatric Psychiatric exam: Present normal affect and normal mood Skin Skin exam: Present warm, dry and normal color Medical Decision Making Medical Records Medical records reviewed: Yes I reviewed the patient's medical records. [place] Inquiry Pt receiving controlled substance: No Vital Signs: 02/20/24 12:54 Temperature 99.0 F Temperature Source Oral Pulse Rate [Left Radial] 89 Respiratory Rate 15 Blood Pressure [Right Arm] 143/99 H Blood Pressure Mean [Right Arm] 113 02 Sat by Pulse Oximetry 98 Oxygen Delivery Method Room Air Lab Data Lab results reviewed: Yes I reviewed the patient's lab results. Orders (Tests/Meds): ED MEDICATIONS Discontinued Medications Generic Name Dose Route Start Last Admin Trade Name Freq PRN Reason Stop Dose Admin Acetaminophen 1,000 mg 02/20/24 14:29 02/20/24 14:50 Acetaminophen 500mg Tab PO 02/20/24 14:30 1,000 mg ONCE ONE Administration Ketorolac Tromethamine 30 mg 02/20/24 14:29 02/20/24 14:51 Ketorolac 30mg/Ml Vial IM 02/20/24 14:30 30 mg ONCE ONE Administration Methocarbamol 500 mg 02/20/24 21:00 Methocarbamol 500mg Tablet PO 03/21/24 20:59 BID ANDREI Methocarbamol 500 mg 02/20/24 14:43 02/20/24 14:50 Methocarbamol 500mg Tablet PO 02/20/24 14:44 500 mg ONCE ONE Administration Prednisone 60 mg 02/20/24 14:29 02/20/24 14:51 Prednisone 20mg Tab PO 02/20/24 14:30 60 mg ONCE ONE Administration Medical Decision Narrative: In summary patient is a 43-year-old female who presents to the emergency department for evaluation of sciatica. Patient is dynamically stable upon arrival, afebrile. Physical exam is remarkable for lumbar spine midline tenderness and left paraspinous muscle tenderness without deformity. Patient has radiculopathy down the left leg but has 5 out of 5 muscle strength although patient's pain limits full physical exam. Patient has no saddle anesthesia. Differential diagnosis includes sciatica flare versus cord impingement versus muscle spasm. Initial workup is deferred as patient is already had CT imaging within the last 90 days that showed degenerative disc disease and likely modality needs to be an MRI. Initial interventions include prednisone acetaminophen and Toradol Robaxin. Upon repeat evaluation I had an interactive discussion with the patient regarding her findings and via patient directed decision making will refer the patient to pain management. Given this patient is appropriate for discharge at this time with referral to Dr. Harper of pain management, prescription for prednisone and Robaxin. Critical Care Critical Care Time Critical Care Time: No
[2024-02-20] MEDS: ACETAMINOPHEN 500MG TAB 1000 MG PO (14:50)
[2024-02-20] MEDS: METHOCARBAMOL 500MG TABLET 500 MG PO (14:50)
[2024-02-20] MEDS: predniSONE 20MG TAB 60 MG PO (14:51)
[2024-02-20] MEDS: KETOROLAC 30MG/ML VIAL 30 MG IM (14:51)
[2024-02-20 15:50] VITALS: BP 130/75; PULSE 82; RESP 13; TEMP 36.7
== END 2024-02-20 15:50 | disposition home or self-care (01) ==
PROVIDERS: Emergency Provider Emergency Medicine; PCP Nurse Practitioner
DX: M54.32 Sciatica, left side (principal); E11.9 Type 2 diabetes mellitus without complications; Z79.84 Long term (current) use of oral hypoglycemic drugs; F17.210 Nicotine dependence, cigarettes, uncomplicated
CPT/HCPCS: 96372; 99283

== ENCOUNTER 2024-12-13 06:41 | Emergency (ER) | payer MEDICARE, SELFPAY ==
[2024-12-13 06:48] VITALS: BP 183/112; PULSE 81; O2SAT 98
--- NOTE | 2024-12-13 06:51 | XR_ITS ---
FINAL REPORT CLINICAL HISTORY: vomiting/nausea/cardiac hx COMPARISON: 03/02/2023 FINDINGS: A single AP view of the chest was obtained. The cardiac and mediastinal silhouettes are within normal limits. The lungs are clear. There is no effusion or pneumothorax. IMPRESSION: No radiographic evidence of acute cardiac or pulmonary disease on this single view of the chest. Reviewed, Interpreted and Dictated by Susana Medina MD Transcribed by Nichole Sequeira Authenticated and [facility]
[2024-12-13 06:52] VITALS: BP 183/112; PULSE 76; RESP 16; TEMP 36.2; O2SAT 98; BMI 46.6
--- NOTE | 2024-12-13 06:53 | ED_ITS ---
Discharge Plan Disposition Patient Disposition: Home, Self-Care Condition: Good Prescriptions Prescriptions: New ondansetron 4 mg tablet,disintegrating 4 mg PO Q8H PRN (Reason: nausea and vomiting) 4 Days Qty: 12 0RF No Action amitriptyline 25 mg tablet 25 - 75 mg PO HS Patient Comments: TAKE 1 TO 3 TABLETS BY MOUTH NIGHTLY NEEDED FOR SLEEP. aspirin 81 mg tablet,chewable 81 mg PO DAILY ergocalciferol (vitamin D2) 1,250 mcg (50,000 unit) capsule 1,250 mcg PO WEEKLY vancomycin 500 mg Recon Soln 125 mg PO Q6H Qty: 25 0RF ondansetron HCl 4 mg tablet 4 mg PO Q6H PRN (Reason: nausea and vomiting) Qty: 10 0RF gabapentin 300 mg capsule 300 mg PO TID Qty: 30 0RF cyclobenzaprine 5 mg tablet 10 mg PO TID PRN (Reason: muscle spasm) Qty: 30 0RF quetiapine 25 mg tablet 25 - 50 mg PO HSP PRN (Reason: Sleep) Patient Comments: TAKE 1 TO 2 TABLETS BY MOUTH NIGHTLY NEEDED. carvedilol 12.5 mg tablet 12.5 mg PO BID Patient Comments: TAKE 1 TABLET BY MOUTH 2 TIMES DAILY. gabapentin 400 mg capsule 400 mg PO TID sertraline 100 mg tablet 100 mg PO DAILY Patient Comments: TAKE 1 TABLET BY MOUTH DAILY. omeprazole 40 mg capsule,delayed release(DR/EC) 40 mg PO DAILY Patient Comments: TAKE 1 CAPSULE BY MOUTH EVERY 24 HOURS ropinirole 2 mg tablet 4 mg PO HS Patient Comments: TAKE 2 TABLETS BY MOUTH NIGHTLY. metformin 1,000 mg tablet 1,000 mg PO BID Patient Comments: TAKE 1 TABLET BY MOUTH 2 TIMES DAILY. montelukast 10 mg tablet 10 mg PO PM Patient Comments: TAKE ONE TABLET BY MOUTH EVERY EVENING lamotrigine 100 mg tablet 100 mg PO DAILY Patient Comments: TAKE 1 TABLET BY MOUTH DAILY. nabumetone 500 mg tablet 500 mg PO DAILY Patient Comments: TAKE 1 TABLET BY MOUTH DAILY. rosuvastatin 20 mg tablet 20 mg PO HS Patient Comments: TAKE 1 TABLET BY MOUTH NIGHTLY. budesonide-formoterol [Symbicort] 160-4.5 mcg/actuation HFA aerosol inhaler 2 puff INHALATION BID Patient Comments: INHALE 2 PUFFS INTO THE LUNGS 2 TIMES DAILY. methocarbamol 750 mg tablet 750 mg PO Q8H PRN (Reason: pain) Qty: 20 0RF lidocaine [Lidoderm] 5 % adhesive patch,medicated 1 patch topical DAILY Qty: 15 0RF Rx Instructions: leave on most painful area for up to 12 hrs ketorolac 10 mg tablet 10 mg PO Q8H PRN (Reason: pain) 1 Days Qty: 14 0RF prednisone 50 mg tablet 50 mg PO DAILY 5 Days Qty: 5 0RF methocarbamol 750 mg tablet 750 mg PO Q6H PRN (Reason: muscle spasm) Qty: 30 0RF Referrals Follow up/Referrals: Xochitl Lim APRN [Primary Care Provider] - See instructions Activity Restrictions/Add. Instructions Additional Instructions/Restrictions: You were evaluated in the emergency department today. At this time, your labs, x-ray, and workup are very reassuring. It is possible you have infectious gastroenteritis from either a viral or bacterial illness. Your body will clear this on its own, it is very important that you maintain hydration and eat a bland diet until then to help alleviate symptoms. 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 Take Tylenol and ibuprofen as needed for pain/fever. Follow-up closely with primary care. Return to the emergency department for new or worsening symptoms. Clinical Impressions Clinical Impression: Nausea, vomiting, and diarrhea, Gastroenteritis, Low back pain Stand Alone Forms Stand Alone Forms: Work/School Release Instructions Patient Instructions: DI for Low Back Pain, DI for Diarrhea and Traveler's Diarrhea -- Adult, DI for Nausea -- Adult Print Language Print Language: Norwegian Discharge ED Provider: Romelia Arredondo General Adult HPI <Enoch Green MD - Last Filed: 12/13/24 07:01> General Chief complaint: Abdominal Pain Stated complaint: abd pain, vomiting, nausea Time Seen by Provider: 12/13/24 06:51 History of Present Illness HPI narrative: 44-year-old female with history of diabetes, hypertension, bipolar, chronic pain, [place] with stent presents to the ER for complaints of nausea, vomiting, diarrhea that started approximately 24 hours ago. Patient feels like she may be developing a fever at this time. She does report recent COVID exposure but denies cough or congestion at this time. She states she had emesis yesterday, nonbloody, nonbilious. She states she had diarrhea as well yesterday and overnight but the diarrhea seems to have stopped. She feels like at this time she would not be able to go to have diarrhea. She denies dysuria or hematuria. She states her abdomen feels bloated but not painful. She is having nausea but no more vomiting at this time. No other associated symptoms. She states she takes daily ibuprofen and aspirin as well as her other home medications. Related Data Home Medications ?Medication ?Instructions ?Recorded ?Confirmed budesonide-formoterol HFA 160 2 puff inhalation BID Asthma 07/10/22 07/15/22 mcg-4.5 mcg/actuation aerosol inhaler (Symbicort) carvedilol 12.5 mg tablet 12.5 mg PO BID Hypertension 07/10/22 07/15/22 gabapentin 400 mg capsule 400 mg PO TID nerve pain 07/10/22 07/15/22 lamotrigine 100 mg tablet 100 mg PO DAILY bipolar 07/10/22 07/15/22 metformin 1,000 mg tablet 1,000 mg PO BID Diabetes 07/10/22 07/15/22 montelukast 10 mg tablet 10 mg PO PM allergies 07/10/22 07/15/22 nabumetone 500 mg tablet 500 mg PO DAILY Pain 07/10/22 07/15/22 omeprazole 40 mg capsule,delayed 40 mg PO DAILY GERD 07/10/22 07/15/22 release quetiapine 25 mg tablet 25 - 50 mg PO HSP PRN Sleep 07/10/22 07/15/22 ropinirole 2 mg tablet 4 mg PO HS restless leg syndrome 07/10/22 07/15/22 rosuvastatin 20 mg tablet 20 mg PO HS Cholesterol 07/10/22 07/15/22 sertraline 100 mg tablet 100 mg PO DAILY Depression 07/10/22 07/15/22 amitriptyline 25 mg tablet 25 - 75 mg PO HS SLEEP 07/16/22 07/16/22 aspirin 81 mg chewable tablet 81 mg PO DAILY HEART HEALTH 07/16/22 07/16/22 ergocalciferol (vitamin D2) 1,250 1,250 mcg PO WEEKLY Supplement 07/16/22 07/16/22 mcg (50,000 unit) capsule Previous Rx's ?Medication ?Instructions ?Recorded ondansetron HCl 4 mg tablet 4 mg PO Q6H PRN nausea and 07/17/22 vomiting #10 tabs vancomycin 500 mg intravenous 125 mg PO Q6H #25 ea 07/17/22 solution ketorolac 10 mg tablet 10 mg PO Q8H PRN pain 1 day #14 01/12/24 tabs lidocaine 5 % topical patch 1 patch topical DAILY #15 ea 01/12/24 (Lidoderm) methocarbamol 750 mg tablet 750 mg PO Q8H PRN pain #20 tabs 01/12/24 cyclobenzaprine 5 mg tablet 10 mg (2 x 5 mg) PO TID PRN muscle 02/16/24 spasm #30 tabs gabapentin 300 mg capsule 300 mg PO TID #30 caps 02/16/24 methocarbamol 750 mg tablet 750 mg PO Q6H PRN muscle spasm #30 02/20/24 tabs prednisone 50 mg tablet 50 mg PO DAILY 5 days #5 tabs 02/20/24 ondansetron 4 mg disintegrating 4 mg PO Q8H PRN nausea and 12/13/24 tablet vomiting 4 days #12 tabs Allergies Allergy/AdvReac Type Severity Reaction Status Date / Time latex Allergy Verified 01/12/24 07:25 Penicillins Allergy Unknown Verified 12/05/23 12:52 allergy reaction Sulfa (Sulfonamide Allergy Unknown Verified 12/05/23 12:52 Antibiotics) allergy reaction [facility] <Enoch Green MD - Last Filed: 12/13/24 07:01> [facility] Disclaimer: The information contained in this section may have been updated after the patient was seen, as this information can be updated by other users. Medical History Diabetes mellitus, type 2 Surgical History S/P carpal tunnel release Family History Other Family history of cancer Social History Smoking Status: Current every day smoker second hand exposure: No alcohol intake: never substance use type: methamphetamine current occupational status: other Travel in the last 8 weeks: None household members: other housing: apartment Have you lived/traveled outside [place] in past 30 days?: No Contact w/someone who lives/traveled outside US past 30 days?: No Exposure to someone with infectious disease in past 14 days?: No Do you have a fever (greater than 100.4 F or 38 C)?: No Have you tested positive for COVID-19: No Exposed to someone with COVID-19 in past 14 days?: No Do you have a sore throat?: No Do you have a cough?: No Do you have any weakness?: No Do you have any diarrhea?: No Are you experiencing any unusual bleeding?: No Do you have any muscle aches/pain?: No Do you have any abdominal pain?: Yes Are you experiencing loss of taste or smell?: No Other Medical History Have you received the Flu Vaccine for this season: No Have you received the Pneumonia Vaccine: No <Enoch Green MD - Last Filed: 12/13/24 07:01> ROS Obtained: Yes Systems reviewed as appropriate & no additional complaints except as documented Per HPI Physical Exam <Enoch Green MD - Last Filed: 12/13/24 07:01> General General appearance: alert, in no apparent distress and obese Head Head exam: atraumatic and normocephalic Eye Eye exam: Present PERRL and EOMI ENT ENT exam: Present mucous membranes moist Neck Neck exam: Present normal inspection and full ROM Chest Chest inspection: Present symmetric chest wall rise Respiratory Respiratory exam: Present normal lung sounds bilaterally; Absent respiratory distress, wheezes or stridor Cardiovascular Cardiovascular exam: Present regular rate and normal rhythm Abdominal Exam Abdominal exam: Present soft; Absent distention, tenderness, guarding or rebound Extremities Exam Extremities exam: Present full ROM; Absent edema Neurological Exam Neurological exam: Present alert, oriented X3 and normal gait; Absent motor sensory deficit Psychiatric Psychiatric exam: Present normal affect and normal mood Skin Skin exam: Present warm and dry Medical Decision Making <Enoch Green MD - Last Filed: 12/13/24 07:01> Medical Records Medical records reviewed: Yes I reviewed the patient's medical records. Screening: Per USPSTF and CDC recommendations, given the prevalence of disease in our region, it is our hospital?s policy to screen for HIV and viral Hepatitis for all patients aged 18 and over and those with ongoing risk factors. MR Comment: Most recent encounter in our system was February 2024 when patient was seen with back pain and discharged on prednisone and methocarbamol. [place] Inquiry Pt receiving controlled substance: No Vital Signs: 12/13/24 06:48 12/13/24 06:52 12/13/24 08:15 Temperature 97.2 F L Temperature Source Oral Pulse Rate 81 68 Pulse Rate [Right Radial] 76 Respiratory Rate 16 Blood Pressure 183/112 H Blood Pressure [Right Arm] 183/112 H Blood Pressure Mean Blood Pressure Mean [Right Arm] 135 Blood Pressure Source [Right Arm] Automatic Cuff Blood Pressure Position [Right Arm] Sitting 02 Sat by Pulse Oximetry 98 98 98 Oxygen Delivery Method Room Air 12/13/24 09:11 12/13/24 09:31 12/13/24 09:44 Temperature 98.2 F Temperature Source Pulse Rate 61 68 67 Pulse Rate [Right Radial] Respiratory Rate 20 Blood Pressure 146/91 H 143/86 H 143/86 H Blood Pressure [Right Arm] Blood Pressure Mean 119 105 Blood Pressure Mean [Right Arm] Blood Pressure Source [Right Arm] Blood Pressure Position [Right Arm] 02 Sat by Pulse Oximetry 99 97 Oxygen Delivery Method Room Air Lab Data Lab Results 12/13/24 06:50: WBC 5.7, RBC 4.64, Hgb 14.1, Hct 40.6, MCV 87.5, MCH 30.4, MCHC 34.7, RDW 12.3, Plt Count 215, MPV 10.4, Neut % (Auto) 55.2, Lymph % (Auto) 33.4, [place] % (Auto) 9.3, Eos % (Auto) 1.6, Baso % (Auto) 0.3, Neut # (Auto) 3.2, Lymph # (Auto) 1.9, [place] # (Auto) 0.5, Eos # (Auto) 0.1, Baso # (Auto) 0.0, PT 10.3, INR 0.91, Sodium 142, Potassium 4.1, Chloride 107, Carbon Dioxide 24, A nion Gap 15.1 H, BUN 12, Creatinine 0.60, Estimated Creat Clear 113, Estimated GFR 109, Est GFR ( Amer) 132, Glucose 106 H, Calcium 9.7, Total Bilirubin 0.4, AST 33, ALT 30, Alkaline Phosphatase 52, Troponin I < 0.01, Total Protein 8.6 H, Albumin 5.0, Globulin 3.6 H, Albumin/Globulin Ratio 1.4, Lipase 131 12/13/24 07:02: SARS-CoV-2 (PCR) Not detected, Influenza A Untype (PCR) Not detected, Influenza Type B (PCR) Not detected 12/13/24 07:53: Urine Color Yellow, Urine Appearance Clear, Urine pH 6.0, Ur Specific [place] >= 1.030, Urine Protein 30, Urine Glucose (UA) Negative, Urine Ketones Negative, Urine Blood Negative, Urine Nitrate Negative, Urine Bilirubin Negative, Urine Urobilinogen 0.2, Ur Leukocyte Esterase Negative, Urine RBC None, Urine WBC None, Ur Squamous Epith Cells Occasional, Urine Bacteria None, Urine HCG, Qual Negative 12/13/24 09:16: Lactate 0.9 12/13/24 06:50 12/13/24 06:50 Orders (Tests/Meds): ED MEDICATIONS Discontinued Medications Generic Name Dose Route Start Last Admin Trade Name Freq PRN Reason Stop Dose Admin Acetaminophen 1,000 mg 12/13/24 08:59 12/13/24 09:10 Acetaminophen 500mg Tab PO 12/13/24 09:00 1,000 mg ONCE ONE Administration Lactated Ringer's 1,000 mls @ 999 mls/hr 12/13/24 06:51 12/13/24 07:43 Lactated Ringer's 1000 Ml Bag IV 12/13/24 07:51 999 mls/hr .Q1H1M ONE Administration Ketorolac Tromethamine 15 mg 12/13/24 08:59 12/13/24 09:10 Ketorolac 30mg/Ml Vial IV 12/13/24 09:00 15 mg ONCE ONE Administration Ondansetron HCl 4 mg 12/13/24 06:51 12/13/24 07:43 Ondansetron 4mg/2ml Vial IV 12/13/24 06:52 4 mg ONCE ONE Administration ORDERS Category Date Time Status XR chest portable Stat Exams 12/13/24 06:51 Completed Complete Blood Count Auto Diff Stat Lab 12/13/24 06:50 Completed Comprehensive Metabolic Panel Stat Lab 12/13/24 06:50 Completed Lactic Acid Stat Lab 12/13/24 09:16 Completed Lipase Stat Lab 12/13/24 06:50 Completed Prothrombin Time INR Stat Lab 12/13/24 06:50 Completed Rapid PCR Covid and Flu A/B Stat Lab 12/13/24 07:02 Completed Troponin I Stat Lab 12/13/24 06:50 Completed Urinalysis and Microscopic Stat Lab 12/13/24 07:53 Completed Urine , HCG Qual. Stat Lab 12/13/24 07:53 Completed Medical Decision Narrative: In summary, this 44-year-old female with comorbidities as described in the HPI which may not be at goal therapy presents to the emergency department today with nausea, vomiting, diarrhea, subjective fever. On initial evaluation patient is hypertensive but otherwise hemodynamically stable, afebrile, well-appearing, abdominal exam is benign, no peripheral edema, cardiopulmonary exam is reassuring. Differential diagnosis includes but is not limited to viral syndrome including COVID, influenza also considered viral GI illness, electrolyte abnormality, dehydration, urinary tract infection, though I considered much less likely I considered the possibility of atypical presentation of ACS especially with patient's past cardiac history. Based on these concerns, I ordered serum labs, cardiac workup, urine studies. Patient has a benign abdominal exam so I do not believe imaging is indicated at this time unless lab results indicate otherwise. ECG personally interpreted demonstrates sinus bradycardia, rate 58, normal axis, normal MI and QTc, no STEMI. Patient is receiving IV fluids and Zofran for initial treatment. Laboratory workup pending at the time of physician handoff. Patient handed off to Dr. Arredondo in stable condition. <Romelia Arredondo, DO - Last Filed: 12/13/24 15:35> Vital Signs: 12/13/24 06:48 12/13/24 06:52 12/13/24 08:15 Temperature 97.2 F L Temperature Source Oral Pulse Rate 81 68 Pulse Rate [Right Radial] 76 Respiratory Rate 16 Blood Pressure 183/112 H Blood Pressure [Right Arm] 183/112 H Blood Pressure Mean Blood Pressure Mean [Right Arm] 135 Blood Pressure Source [Right Arm] Automatic Cuff Blood Pressure Position [Right Arm] Sitting 02 Sat by Pulse Oximetry 98 98 98 Oxygen Delivery Method Room Air 12/13/24 09:11 12/13/24 09:31 12/13/24 09:44 Temperature 98.2 F Temperature Source Pulse Rate 61 68 67 Pulse Rate [Right Radial] Respiratory Rate 20 Blood Pressure 146/91 H 143/86 H 143/86 H Blood Pressure [Right Arm] Blood Pressure Mean 119 105 Blood Pressure Mean [Right Arm] Blood Pressure Source [Right Arm] Blood Pressure Position [Right Arm] 02 Sat by Pulse Oximetry 99 97 Oxygen Delivery Method Room Air Lab Data Lab Results 12/13/24 06:50: WBC 5.7, RBC 4.64, Hgb 14.1, Hct 40.6, MCV 87.5, MCH 30.4, MCHC 34.7, RDW 12.3, Plt Count 215, MPV 10.4, Neut % (Auto) 55.2, Lymph % (Auto) 33.4, [place] % (Auto) 9.3, Eos % (Auto) 1.6, Baso % (Auto) 0.3, Neut # (Auto) 3.2, Lymph # (Auto) 1.9, [place] # (Auto) 0.5, Eos # (Auto) 0.1, Baso # (Auto) 0.0, PT 10.3, INR 0.91, Sodium 142, Potassium 4.1, Chloride 107, Carbon Dioxide 24, A nion Gap 15.1 H, BUN 12, Creatinine 0.60, Estimated Creat Clear 113, Estimated GFR 109, Est GFR ( Amer) 132, Glucose 106 H, Calcium 9.7, Total Bilirubin 0.4, AST 33, ALT 30, Alkaline Phosphatase 52, Troponin I < 0.01, Total Protein 8.6 H, Albumin 5.0, Globulin 3.6 H, Albumin/Globulin Ratio 1.4, Lipase 131 12/13/24 07:02: SARS-CoV-2 (PCR) Not detected, Influenza A Untype (PCR) Not detected, Influenza Type B (PCR) Not detected 12/13/24 07:53: Urine Color Yellow, Urine Appearance Clear, Urine pH 6.0, Ur Specific [place] >= 1.030, Urine Protein 30, Urine Glucose (UA) Negative, Urine Ketones Negative, Urine Blood Negative, Urine Nitrate Negative, Urine Bilirubin Negative, Urine Urobilinogen 0.2, Ur Leukocyte Esterase Negative, Urine RBC None, Urine WBC None, Ur Squamous Epith Cells Occasional, Urine Bacteria None, Urine HCG, Qual Negative 12/13/24 09:16: Lactate 0.9 Orders (Tests/Meds): ED MEDICATIONS Discontinued Medications Generic Name Dose Route Start Last Admin Trade Name Freq PRN Reason Stop Dose Admin Acetaminophen 1,000 mg 12/13/24 08:59 12/13/24 09:10 Acetaminophen 500mg Tab PO 12/13/24 09:00 1,000 mg ONCE ONE Administration Lactated Ringer's 1,000 mls @ 999 mls/hr 12/13/24 06:51 12/13/24 07:43 Lactated Ringer's 1000 Ml Bag IV 12/13/24 07:51 999 mls/hr .Q1H1M ONE Administration Ketorolac Tromethamine 15 mg 12/13/24 08:59 12/13/24 09:10 Ketorolac 30mg/Ml Vial IV 12/13/24 09:00 15 mg ONCE ONE Administration Ondansetron HCl 4 mg 12/13/24 06:51 12/13/24 07:43 Ondansetron 4mg/2ml Vial IV 12/13/24 06:52 4 mg ONCE ONE Administration ORDERS Category Date Time Status XR chest portable Stat Exams 12/13/24 06:51 Completed Complete Blood Count Auto Diff Stat Lab 12/13/24 06:50 Completed Comprehensive Metabolic Panel Stat Lab 12/13/24 06:50 Completed Lactic Acid Stat Lab 12/13/24 09:16 Completed Lipase Stat Lab 12/13/24 06:50 Completed Prothrombin Time INR Stat Lab 12/13/24 06:50 Completed Rapid PCR Covid and Flu A/B Stat Lab 12/13/24 07:02 Completed Troponin I Stat Lab 12/13/24 06:50 Completed Urinalysis and Microscopic Stat Lab 12/13/24 07:53 Completed Urine , HCG Qual. Stat Lab 12/13/24 07:53 Completed Medical Decision Narrative: In summary, this 44-year-old female with comorbidities as described in the HPI which may not be at goal therapy presents to the emergency department today with nausea, vomiting, diarrhea, subjective fever. On initial evaluation patient is hypertensive but otherwise hemodynamically stable, afebrile, well-appearing, abdominal exam is benign, no peripheral edema, cardiopulmonary exam is reassuring. Differential diagnosis includes but is not limited to viral syndrome including COVID, influenza also considered viral GI illness, electrolyte abnormality, dehydration, urinary tract infection, though I considered much less likely I considered the possibility of atypical presentation of ACS especially with patient's past cardiac history. Based on these concerns, I ordered serum labs, cardiac workup, urine studies. Patient has a benign abdominal exam so I do not believe imaging is indicated at this time unless lab results indicate otherwise. ECG personally interpreted demonstrates sinus bradycardia, rate 58, normal axis, normal MI and QTc, no STEMI. Patient is receiving IV fluids and Zofran for initial treatment. Laboratory workup pending at the time of physician handoff. Patient handed off to Dr. Arredondo in stable condition. Arnulfo DO: I assumed care of the patient at 7 AM at time of departure previous provider. On my assessment, she complains that she has had nausea, vomiting, and low back pain but denies any other specific concerns or complaints. Abdominal exam is benign to my assessment. She has no numbness, tingling, saddle anesthesia or other concerns. She notes she has chronic back pain so she is not sure if this is just a flareup. Labs are reassuring with no significant leukocytosis or anemia. Chemistry is reassuring with mildly elevated anion gap at the right at the upper limits of normal in the setting of vomiting and diarrhea, but otherwise no significant MARTIN, normal liver enzymes, normal lipase. Urinalysis is not overly concerning for infection. I considered obtaining imaging of the abdomen, however based on reassuring exam I doubt surgical intra- abdominal pathology and do not feel that it would likely pattern changer. Initial provider had ordered cardiac workup, troponin and EKG are reassuring. Given reassuring workup and exam, I feel the patient is appropriate for discharge home with instructions for supportive management of likely infectious gastroenteritis. Strict return precautions were given as well as instruction for Zofran. Patient was discharged after all questions were answered. Critical Care <Enoch Green MD - Last Filed: 12/13/24 07:01> Critical Care Time Critical Care Time: No
--- NOTE | 2024-12-13 06:57 | ECG_ITS ---
APPROVED REPORT Exam: Resting ECG HR:58 bpm ECG Measurements Heart Rate 58 AXES WI 165 P 56 QRSd 101 QRS 56 QT 439 T 55 QTc 435 Conclusion SINUS BRADYCARDIA BORDERLINE ECG No STEMI Electronically signed by : JADA BOSS, 12/13/2024 16:18:46
[2024-12-13 07:01] LABS: Basophils % 0.3 % (0.1-2.0); Eosinophils # 0.1 K/mm3 (0.0-0.4); Eosinophils % 1.6 % (0.1-12.0); Hematocrit 40.6 % (37.0-47.0); Hemoglobin 14.1 g/dL (12.2-16.2); Lymphocytes # 1.9 K/mm3 (0.7-4.5); Lymphocytes % 33.4 % (10-50); Mean Corpuscular HGB Conc 34.7 g/dL (31.8-35.4); Mean Corpuscular Hemoglobin 30.4 pg (27.0-31.2); Mean Corpuscular Volume 87.5 fl (81-99); Mean Platelet Volume 10.4 fl (7.4-10.4); Monocytes # 0.5 K/mm3 (0.1-1.0); Monocytes % 9.3 % (1.7-9.3); Neutrophils # 3.2 K/mm3 (1.8-7.8); Neutrophils % 55.2 % (37.0-80.0); Platelet Count 215 K/mm3 (142-424); Red Blood Count 4.64 M/mm3 (4.20-5.40); Red Cell Distribution Width 12.3 % (11.5-17.5); White Blood Count 5.7 K/mm3 (4.8-10.8)
[2024-12-13 07:06] LABS: Coronavirus 19, PCR Not Detected (NotDetected); Influenza A, PCR Not Detected (NotDetected); Influenza B, PCR Not Detected (NotDetected)
[2024-12-13 07:11] LABS: INR 0.91 (0.9-1.1); Prothrombin Time 10.3 seconds (10.1-12.5)
[2024-12-13 07:23] LABS: Alanine Aminotransferase 30 U/L (12-78); Albumin/Globulin Ratio 1.4 (1.1-1.8); Alkaline Phosphatase 52 U/L (38-126); Anion Gap 15.1 mEq/L (5-15); Aspartate Amino Transferase 33 U/L (14-36); Bilirubin,Total 0.4 mg/dl (0.2-1.3); Blood Urea Nitrogen 12 mg/dl (7-17); Calcium 9.7 mg/dl (8.4-10.2); Carbon Dioxide 24 mmol/L (22.0-30.0); Chloride 107 mmol/L (98-107); Creatinine Clearance Estimated 113 mL/min (50-200); Estimated Glomerular Filt Rate 109 ml/min (>60); GFR (African American) 132 ML/MIN (>60); Globulin 3.6 g/dL (1.3-3.2); Glucose 106 mg/dl (74-100); Lipase 131 U/L (23-300); Potassium 4.1 mmoL/L (3.5-5.1); Sodium 142 mmol/L (136-145); Total Protein,Serum 8.6 g/dl (6.3-8.2)
[2024-12-13 07:39] LABS: Troponin I < 0.01 ng/ml (0.00-0.034)
[2024-12-13] MEDS: LACTATED RINGERS 1000ML 1,000 ML 999 ML IV (07:43)
[2024-12-13] MEDS: ONDANSETRON 4MG/2ML VIAL 4 MG IV (07:43)
[2024-12-13 07:58] LABS: Microscopic, Urine URINE MICROSCOPIC (MICROSCOPIC)
[2024-12-13 08:04] LABS: Appearance,Urine CLEAR (Clear); Bilirubin,Urine Negative (Negative); Blood, Urine Negative (Negative); Color,Urine YELLOW (Yellow); Glucose,Urine (UA) Negative (Negative); Ketones,Urine Negative (Negative); Leukocyte Esterase,Urine Negative (Negative); Nitrate,Urine Negative (Negative); Protein,Urine 30 (Negative); Specific Gravity, Urine >= 1.030 (1.005-1.030); Urobilinogen,Urine 0.2 EU/dl (0.2)
[2024-12-13 08:15] VITALS: PULSE 68; O2SAT 98
[2024-12-13 08:16] LABS: Urine Pregnancy, HCG Qual. Negative (Negative)
[2024-12-13 08:44] LABS: Squamous Epithelial Cell,Urine Occasional #/hpf (0-5)
[2024-12-13] MEDS: KETOROLAC 30MG/ML VIAL 15 MG IV (09:10)
[2024-12-13] MEDS: ACETAMINOPHEN 500MG TAB 1000 MG PO (09:10)
[2024-12-13 09:11] VITALS: BP 146/91; PULSE 61; O2SAT 99
[2024-12-13 09:31] VITALS: BP 143/86; PULSE 68; O2SAT 97
--- NOTE | 2024-12-13 09:31 | PC.NURSE ---
dr gunn at bedside to update pt
[2024-12-13 09:34] LABS: Lactic Acid 0.9 mmol/L (0.7-2.1)
[2024-12-13 09:44] VITALS: BP 143/86; PULSE 67; RESP 20; TEMP 36.8; O2SAT 97
== END 2024-12-13 09:45 | disposition home or self-care (01) ==
PROVIDERS: Emergency Medicine; Emergency Provider Emergency Medicine; PCP Nurse Practitioner
DX: K52.9 Noninfective gastroenteritis and colitis, unspecified (principal); R11.2 Nausea with vomiting, unspecified; M54.50 Low back pain, unspecified; F12.20 Cannabis dependence, uncomplicated; F31.9 Bipolar disorder, unspecified; E66.9 Obesity, unspecified; E11.9 Type 2 diabetes mellitus without complications; Z20.822 Contact with and (suspected) exposure to COVID-19; Z79.01 Long term (current) use of anticoagulants; Z68.39 Body mass index [BMI] 39.0-39.9, adult
CPT/HCPCS: 71045; 80053; 81001; 81025; 83605; 83690; 84484; 85025; 85610; 87636; 93005; 96361; 96374; 96375; 99284; J1885; J2405; J7120

== ENCOUNTER 2025-01-22 08:44 | Emergency (ER) | payer MEDICARE, SELFPAY ==
[2025-01-22] VITALS (12 sets, daily range): BP systolic 136–222; BP diastolic 76–165; PULSE 58–70; RESP 19–20; TEMP 36.6–36.7; O2SAT 97–100; BMI 46.7
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
[2025-01-22] MEDS: MORPHINE 4MG/ML SYRINGE 4 MG IV (09:05)
[2025-01-22] MEDS: LACTATED RINGERS 1000ML 1,000 ML 999 ML IV (09:05)
[2025-01-22] MEDS: ONDANSETRON 4MG/2ML VIAL 4 MG IV (09:05)
[2025-01-22 09:19] LABS: Basophils % 0.4 % (0.1-2.0); Eosinophils # 0.1 Kmm3 (0.0-0.4); Eosinophils % 1.9 % (0.1-12.0); Hematocrit 39.7 % (37.0-47.0); Hemoglobin 13.4 g/dL (12.2-16.2); Lymphocytes # 1.5 K/mm3 (0.7-4.5); Lymphocytes % 30.4 % (10-50); Mean Corpuscular HGB Conc 33.8 g/dL (31.8-35.4); Mean Corpuscular Hemoglobin 30.4 pg (27.0-31.2); Mean Platelet Volume 10.8 fl (7.4-10.4); Monocytes # 0.4 K/mm3 (0.1-1.0); Monocytes % 8.1 % (1.7-9.3); Neutrophils # 2.8 K/mm3 (1.8-7.8); Nucleated Red Blood Cells # 0 10^3/uL; Nucleated Red Blood Cells % 0 %; Platelet Count 185 K/mm3 (142-424); Red Blood Count 4.41 M/mm3 (4.20-5.40); Red Cell Distribution Width 12.8 % (11.5-17.5); Red Cell Distribution Width-SD 42.2 fL; White Blood Count 4.8 K/mm3 (4.8-10.8)
[2025-01-22 09:27] LABS: Alanine Aminotransferase 23 U/L (12-78); Albumin Level 4.5 g/dl (3.5-5.0); Albumin/Globulin Ratio 1.4 (1.1-1.8); Alkaline Phosphatase 56 U/L (38-126); Anion Gap 8.3 mEq/L (5-15); Aspartate Amino Transferase 29 U/L (14-36); Bilirubin,Total 0.5 mg/dl (0.2-1.3); Blood Urea Nitrogen 16 mg/dl (7-17); Calcium 9.2 mg/dl (8.4-10.2); Carbon Dioxide 25 mmol/L (22.0-30.0); Chloride 110 mmol/L (98-107); Creatinine Clearance Estimated 109 mL/min (50-200); Estimated Glomerular Filt Rate 109 ml/min (>60); GFR (African American) 132 ML/MIN (>60); Globulin 3.2 g/dL (1.3-3.2); Glucose 114 mg/dl (74-100); Lipase 76 U/L (23-300); Potassium 4.3 mmoL/L (3.5-5.1); Sodium 139 mmol/L (136-145); Total Protein,Serum 7.7 g/dl (6.3-8.2)
[2025-01-22 09:40] LABS: HCG Qualitative, Serum Negative (Negative)
[2025-01-22 09:53] LABS: Activated Partial Thrombo Time 25.3 seconds (22.8-30.6); INR 0.91 (0.9-1.1); Prothrombin Time 10.3 seconds (10.1-12.5)
[2025-01-22] MEDS: IOPAMIDOL-370 (76%);100ML BOTTLE 190 ML IV (10:29)
[2025-01-22] MEDS: 0.9 % SODIUM CHLORIDE 50 ML VIAL 80 ML IV (10:29)
[2025-01-22] MEDS: SODIUM CHLORIDE 0.9% 10ML SYR (RAD ONLY) 10 ML IV (10:29)
[2025-01-22 10:45] LABS: Microscopic, Urine URINE MICROSCOPIC (MICROSCOPIC)
[2025-01-22 11:08] LABS: Appearance,Urine CLEAR (Clear); Bilirubin,Urine Negative (Negative); Blood, Urine 2+ (Negative); Color,Urine YELLOW (Yellow); Glucose,Urine (UA) Negative (Negative); Ketones,Urine Negative (Negative); Leukocyte Esterase,Urine Negative (Negative); Nitrate,Urine Negative (Negative); Protein,Urine Negative (Negative); Urobilinogen,Urine 0.2 EU/dl (0.2)
[2025-01-22 12:24] LABS: Bacteria,Urine Trace /lpf
[2025-01-22 14:22] LABS: HIV Combo NEGATIVE (Negative)
[2025-01-22 14:29] LABS: Hepatitis C Ab Qual. W/ RFX NEGATIVE (Negative)
== END 2025-01-22 12:36 | disposition home or self-care (01) ==
PROVIDERS: Emergency Provider Student in an Organized Health Care Education/Training Program; PCP Nurse Practitioner
DX: R07.89 Other chest pain (principal); R10.84 Generalized abdominal pain; S33.5XXA Sprain of ligaments of lumbar spine, initial encounter; S73.101A Unspecified sprain of right hip, initial encounter; Z79.01 Long term (current) use of anticoagulants; V49.40XA Driver injured in collision with unspecified motor vehicles in traffic accident, initial encounter; Z11.59 Encounter for screening for other viral diseases; Z11.4 Encounter for screening for human immunodeficiency virus [HIV]
CPT/HCPCS: 70450; 70496; 70498; 71275; 72125; 72128; 72131; 72192; 74174; 80053; 81001; 83690; 84703; 85025; 85610; 85730; 86803; 87389; 96361; 96374; 96375; 99291; J2270; J2405; J7120; Q9967

== ENCOUNTER 2025-05-20 05:13 | Emergency (ER) | payer MEDICARE, SELFPAY ==
--- OUTSIDE RECORDS SUMMARY | 2017-02-07 13:13 | XMS_ITS | Encounter Summary ---
Author Organization [place] [address] Care Team Providers Care Building Construction Professor Name Role Phone Ge Bowden MD Primary Care Provider [phone] Encounter Details Date Type Department Care Team (Latest Contact Info) Description 02/07/2017 1:13 PM EDT Hospital Encounter [facility] Referral Lab [address] [phone] Annemarie Garcias, FURNACE TENDER Pain in left wrist Social History Tobacco Use Types Packs/Day Years Used Date Smoking Tobacco: Former Cigarettes 0.5 32.9 S tarted: 06/12/1992 Smokeless Tobacco: Never Alcohol Use Standard Drinks/Week Comments Not Currently 0 (1 standard drink = 0.6 oz pur e alcohol) [facility] Utilities Answer Date Recorded In the past 12 months has [employer] electric, gas, oil, or water [employer] threatened to shut off services in your home? No 04/02/2024 Overall Financial Resource Strain (CARDIA) Answe r Date Recorded How hard is it for you to pa y for the very basics like food, housing, medical care, and heating? Not very hard 04/02/2024 PHQ-2 Answer Date Recorded PHQ-2 Total Score 6 10/29/2024 [facility] [place] of Occupat ional Health - Occupational Stress [...] place to sleep or slept in a long term (including now)? Yes 07/06/2023 [facility] IP Transportation Answer D ate Recorded In [...] documented as of this encounter Functional Status * Cognitive and Functional Status Question Answer Date of Assessment Author Is the person deaf or does h e/she have serious difficulty hearing? No 10/29/2024 8:18 AM Anitha Mancia MA Is the person blind or does he/she have serious difficulty seeing even when wearing glasses? No 10/29/2024 8:18 AM Anitha Padilla MA Does this person have seriou s difficulty walking or climbing stairs? No 10/29/2024 8:18 AM Anitha Padilla MA Does this person have diffic ulty dressing or bathing? No 10/29/2024 8:18 AM Anitha Padilla MA * Alcohol Screening Score Answer Date of Assessment Author 0 03/31/2024 5:27 PM Kadie Petersen RN * Question Answer Date of Assessment Author How often do you have a drin k containing alcohol? 0 03/31/2024 5:27 PM EDKadie Lopez Ma, RN How many drinks containing alcohol do you have on a typical day when you are drinking? 0 03/31/2024 5:27 PM EDT Kadie Wolfe Ma, RN How often do you have six or more drinks on one occasion? 0 03/31/2024 5:27 PM Kadie Petersen RN AUDIT-C to Determine Rows 4-10 0 03/31/2024 5:27 PM Kadie Petersen RN * Question Answer Date of Assessment Author Drug Screening Score 2 03/31/2024 5:27 PM E Kadie Dunn RN * Question Answer Date of Assessment Author Do you ever wish you weren't alive anymore? (Past 1 Month) 0 08/25/2021 12:13 AM Juan Ramirez RN Have you thought about doing something to make youself not alive anymore? (Past 1 Month) 0 08/25/2021 12:13 AM Juan Ramirez RN * Recent Risk Level: Answer Date of Assessment Author No Risk, Screening Complete 08/25/2021 12:13 AM Juan Saxena RN * Question Answer Date of Assessment Author Little interest or pleasure in doing things 3 10/29/2024 8:21 AM Nisreen Padilla cia, MA Feeling down, depressed, or hopeless 3 10/29/2024 8:21 AM Anitha Padilla MA PHQ-2 Total Score 6 10/29/2024 8:21 AM Anitha Padilla MA Trouble falling or staying asleep, or sleeping too much 3 10/29/2024 8:21 AM Anitha Padilla MA Feeling tired or having little energy 3 10/29/2024 8:21 AM Anitha Padilla MA Poor appetite or overeating 3 10/29/2024 8:21 AM Anitha Padilla MA Feeling bad about yourself - or that you are a failure or have let yourself or your family down 3 10/29/2024 8:21 AM Anitha Padilla MA Trouble concentrating on things, such as reading the newspaper or watching television 3 10/29/2024 8:21 AM Anitha Padilla MA Moving or speaking so slowly that other people could have noticed. Or the opposite - being so fidgety or restless that you have been moving around a lot more than usual 1 10/29/2024 8:21 AM Anitha Padilla MA Thoughts that you would be better off , or of hurting yourself in some way 2 10/29/2024 8:21 AM Anitha Padilla MA PHQ-9 Total Score 24 10/29/2024 8:21 AM Anitha Padilla MA If you checked off any problems, how difficult have these problems made it for you to do your work, take care of things at home, or get along with other people? Extremely difficult 10/29/2024 8:21 AM Anitha Padilla MA * Question Answer Date of Assessment Author Feeling Nervous, Anxious, or on Edge 3 10/29/2024 8:18 AM Anitha Padilla MA Not Being Able to Stop or Co ntrol Worrying 3 10/29/2024 8:18 AM Anitha Padilla MA Worrying too Much About Diff erent Things 3 10/29/2024 8:18 AM Anitha Padilla MA Trouble Relaxing 3 10/29/2024 8:18 AM Loren Wanga, MA Being so Restless That it is Hard to Sit Still 1 10/29/2024 8:18 AM VITO Nisreen MéndezciaJOSE Becoming Easily Annoyed or Irritable 1 10/29/2024 8:18 AM VITO WilkinsMéndez AnithaJOSE Feeling Afraid as if Somethi ng Awful Might Happen 3 10/29/2024 8:18 AM VITO WilknisMéndez, AnithaJOSE damon ALEJANDRO-7 Total Score 17 10/29/2024 8:18 AM VITO WilkinsMéndez AnithaJOSE * Suicide Severity Rating Answer Date of Assessment Author No Risk 02/13/2025 9:24 AM EDT Gabriela Fuentes RN * [place] Suicide Severity Rating Scale (Q shift for moderate and high) Question Answer Date of Assessment Author 1. In the past month, have y ou wished you were or wished you could go to sleep and not wake up? 0 02/13/2025 9:24 AM EDT Bebe Crockett RN 2. In the past month, have y ou actually had any thoughts of killing yourself? (If no, skip to question 6) 0 02/13/2025 9:24 AM EDT Bebe Fuentes RN 3. In the past month, have y ou been thinking about how you might do this? 0 07/27/2024 6:13 AM Geremias Bustamante M SW 4. In the past month, have y ou had these thoughts and had some intention of acting on them? 0 07/27/2024 6:13 AM Geremias Bustamante MSW 5. In the past month, have y ou started to work out or worked out the details of how to kill yourself? 0 07/27/2024 6:13 AM Geremias Bustamante M SW 6. Have you ever done anythi ng, started to do anything, or prepared to do anything to end your life? 0 02/13/2025 9:24 AM EDT Bebe Fuentes RN Was this within the past 3 months? 0 2023 6:13 AM Geremias Bustamante MSW documented as of this encounter Mental Status * Cognitive and Functional Status Question Answer Entry Date Author Because of [...] Care Team (Late st Contact Info) Description 06/11/2025 2:30 PM EDT Office Visit [facility] [address] [address] Damion Boss MD [address] [place] [address] Scheduled Orders Name Type Priority Associated Diagnoses Orde r Schedule MISCELLANEOUS LAB Lab Routine Pain in left wrist ONCE for 1 Occurrences starting 02/07/2017 until 03/14/2017 documented as of this encounter Goals Goal Patient Goal Type Associated Problems Recent Progress Patient-Stated? Author Blood Pressure < 140/90 Blood Pressure 134/82(2024 1:15 PM EDT) No Xochitl Mary CCMA BMI (Calculated) < 30 General 46.9(11/20/19 25 8:35 AM EST) No Xochitl Mary CCMA Maintain a healthy diet, exercise regularly and maintain an ideal body weight General No Xochitl Mary CCMA Wear dexcom for 10 days, and use clarity deny General Yes Abi Villafana RN Stay Tobacco Free Lifestyle No Xochitl Mary CCMA HEMOGLOBIN A1C < 7.0 Result Component 6.1( 9:03 AM EST) No Xochitl Mary CCMA documented as of this encounter Results * C-REACTIVE PROTEIN (02/11/2017 12:30 PM EDT) CRP 4.05 <=5.00 mg/L [facility] Blood specimen (specimen) 02/11/2017 12:30 PM EDT 02/11/2017 3:27 PM EDT Narrative [facility] - 02/11/2017 4:20 PM EDT LATEX ALLERGY TESTING us Annemarie R Gergen FURNACE TENDER CHEMISTRY ORDERABLES Final Re sult Performing Organization Address [facility] [place] [address] * RHEUMATOID FACTOR QUANTITATIVE (02/11/2017 12:30 PM EDT) [facility] RF Quant <10 <=14 IU/mL [facility] Blood specimen (specimen) 02/11/2017 12:30 PM EDT 02/11/2017 3:27 PM EDT Narrative [facility] - 02/11/2017 4:41 PM EDT LATEX ALLERGY TESTING us Annemarie R Gergen FURNACE TENDER IMMUNOLOGY ORDERABLES Final R esult Performing Organization Address [facility] [place] [address] * ANTINUCLEAR ANTIBODY SCREEN (02/11/2017 12:30 PM EDT) [facility] JENISE Screen Negative [facility] Comment: JENISE samples are screened using an automated EIA assay. All samples that screen positive are titered by an IFA method and will include an JENISE pattern. A titer of < 1:80 is considered clinically insignificant. In general, a titer >= 1:160 is considered significant positive. Blood specimen (specimen) 02/11/2017 12:30 PM EDT 02/11/2017 3:27 PM EDT Narrative [facility] - 02/13/2017 12:21 PM EDT LATEX ALLERGY TESTING us Annemarie R Gergen FURNACE TENDER IMMUNOLOGY ORDERABLES Final R esult Performing Organization Address [facility] [place] [address] * (ABNORMAL) SEDIMENTATION RATE AUTOMATED (02/11/2017 12:30 PM EDT) Pathologist [facility] Sed Rate 50(H) 0 - 20 mm/hr [facility] Blood specimen (specimen) 02/11/2017 12:30 PM EDT 02/11/2017 12:35 PM EDT Narrative [facility] - 02/11/2017 1:24 PM EDT LATEX ALLERGY TESTING us Annemarie Shima Gergen FURNACE TENDER HEMATOLOGY ORDERABLES Final R esult Performing Organization Address [facility]/ZIP Co de Phone Number [facility] [address] [place] [address] * URIC ACID (02/11/2017 12:30 PM EDT) Uric Acid 4.9 2.4 - 5.7 mg/dL [facility] Blood specimen (specimen) 02/11/2017 12:30 PM EDT 02/11/2017 3:27 PM EDT Narrative [facility] - 02/11/2017 4:20 PM EDT LATEX ALLERGY TESTING us Annemarie R Gergen FURNACE TENDER CHEMISTRY ORDERABLES Final Re sult Performing Organization Address [facility] Co de Phone Number [facility] [address] [place] [address] documented in this encounter Visit Diagnoses Diagnosis [...] documented as of this encounter Care Teams Building Construction Professor Relationship Specialty Start Date End Date Ge Bowden MD PCP - General 07/21/10 07/28/20 documented as of this encounter
--- OUTSIDE RECORDS SUMMARY | 2020-01-07 15:18 | XMS_ITS | Encounter Summary ---
Author Organization [place] [address] Care Team Providers Care Director Of Safety Name Role Phone Ge Bowden MD Primary Care Provider [phone] Encounter Details Date Type Department Care Team (Latest Contact Info) Description 01/07/2020 3:18 PM EDT Hospital Encounter [facility] Referral Lab [address] [place] [id number] Encounter for therapeutic drug level monitoring Social History Tobacco Use Types Packs/Day Years Used Date Smoking Tobacco: Never Assessed [place] Utilities Answer Date Recorded In the past 12 months has th [employer] electric, gas, oil, or water company threatened to shut off services in your home? No 04/02/2024 Overall Financial Resource Strain (CARDIA) Answe r Date Recorded How hard is it for you to pa y for the very basics like food, housing, medical care, and heating? Not very hard 04/02/2024 PHQ-2 Answer Date Recorded PHQ-2 Total Score 6 10/29/2024 [facility] [place] [facility] - Occupational Stress [...] in a custodial (including now)? Yes 07/06/2023 [facility] IP Transportation Answer D ate Recorded [...] Assessment Author 0 03/31/2024 5:27 PM Kadie Pteersen RN * Question Answer Date of Assessment Author How often do you have a drin k containing alcohol? 0 03/31/2024 5:27 PM EDKadie Lopez Ma, RN How many drinks containing alcohol do you have on a typical day when you are drinking? 0 03/31/2024 5:27 PM [place] Kadie Wolfe RN How often do you have six or more drinks on one occasion? 0 03/31/2024 5:27 PM Kadie Petersen RN AUDIT-C to Determine Rows 4-10 0 03/31/2024 5:27 PM Kadie Petersen Ma, RN * Question Answer Date of Assessment [...] MA Trouble Relaxing 3 10/29/2024 8:18 AM Anitha Wang MA Being so Restless That it is Hard to Sit Still 1 10/29/2024 8:18 AM Anitha Padilla MA Becoming Easily Annoyed or Irritable 1 10/29/2024 8:18 AM Anitha Padilla MA Feeling Afraid as if Somethi ng Awful Might Happen 3 10/29/2024 8:18 AM Anitha Padilla MA ALEJANDRO-7 Total Score 17 10/29/2024 8:18 AM Anitha Padilla MA * Suicide Severity Rating Answer Date of Assessment Author No Risk 02/13/2025 9:24 AM EDT Gabriela Fuentes RN * [place] Suicide Severity Rating Scale (Q shift for [...] to question 6) 0 02/13/2025 9:24 AM EDBebe Alcala RN 3. In the past month, have [...] end your life? 0 02/13/2025 9:24 AM Bebe Parekh RN Was this within the past 3 [...] 2:30 PM EDT Office Visit [facility] [address] [id number] Damion Boss MD [address] [place], [place] [id number] Scheduled Orders Name Type Priority Associated Diagnoses [...] CCMA BMI (Calculated) < 30 General 46.9(11/20/19 8:35 AM EST) No Xochitl Mary CCMA [...] documented as of this encounter Care Teams Director Of Safety Relationship Specialty Start Date End Date Ge Bowden MD PCP - General 07/21/10 07/28/20 documented as of this encounter
[2025-05-20] VITALS (10 sets, daily range): BP systolic 132–187; BP diastolic 89–120; PULSE 59–79; RESP 8–20; TEMP 36.4–36.8; O2SAT 96–100; BMI 38.7
--- NOTE | 2025-05-20 05:21 | [facility].EDGENADL ---
Discharge Plan Disposition Patient Disposition: Home, Self-Care Prescriptions Prescriptions: New methocarbamol 750 mg tablet 750 mg PO QID PRN (Reason: muscle spasm) Qty: 30 0RF Discontinued methocarbamol 750 mg tablet 750 mg PO Q8H PRN (Reason: pain) Qty: 20 0RF No Action amitriptyline 25 mg tablet 25 - 75 mg PO HS Patient Comments: TAKE 1 TO 3 TABLETS BY MOUTH NIGHTLY NEEDED FOR SLEEP. aspirin 81 mg tablet,chewable 81 mg PO DAILY ergocalciferol (vitamin D2) 1,250 mcg (50,000 unit) capsule 1,250 mcg PO WEEKLY gabapentin 300 mg capsule 300 mg PO TID Qty: 30 0RF cyclobenzaprine 5 mg tablet 10 mg PO TID PRN (Reason: muscle spasm) Qty: 30 0RF ibuprofen 800 mg tablet 800 mg PO TID PRN (Reason: pain) 7 Days Qty: 20 0RF cyclobenzaprine 5 mg tablet 5 mg PO TID PRN (Reason: muscle spasm) 5 Days Qty: 15 0RF quetiapine 25 mg tablet 25 - 50 mg PO HSP PRN (Reason: Sleep) Patient Comments: TAKE 1 TO 2 TABLETS BY MOUTH NIGHTLY NEEDED. carvedilol 12.5 mg tablet 12.5 mg PO BID Patient Comments: TAKE 1 TABLET BY MOUTH 2 TIMES DAILY. sertraline 100 mg tablet 100 mg PO DAILY Patient Comments: TAKE 1 TABLET BY MOUTH DAILY. omeprazole 40 mg capsule,delayed release(DR/EC) 40 mg PO DAILY Patient Comments: TAKE 1 CAPSULE BY MOUTH EVERY 24 HOURS ropinirole 2 mg tablet 4 mg PO HS Patient Comments: TAKE 2 TABLETS BY MOUTH NIGHTLY. metformin 1,000 mg tablet 1,000 mg PO BID Patient Comments: TAKE 1 TABLET BY MOUTH 2 TIMES DAILY. montelukast 10 mg tablet 10 mg PO PM Patient Comments: TAKE ONE TABLET BY MOUTH EVERY EVENING lamotrigine 100 mg tablet 100 mg PO DAILY Patient Comments: TAKE 1 TABLET BY MOUTH DAILY. nabumetone 500 mg tablet 500 mg PO DAILY Patient Comments: TAKE 1 TABLET BY MOUTH DAILY. rosuvastatin 20 mg tablet 20 mg PO HS Patient Comments: TAKE 1 TABLET BY MOUTH NIGHTLY. budesonide-formoterol [Symbicort] 160-4.5 mcg/actuation HFA aerosol inhaler 2 puff INHALATION BID Patient Comments: INHALE 2 PUFFS INTO THE LUNGS 2 TIMES DAILY. lidocaine [Lidoderm] 5 % adhesive patch,medicated 1 patch topical DAILY Qty: 15 0RF Rx Instructions: leave on most painful area for up to 12 hrs ketorolac 10 mg tablet 10 mg PO Q8H PRN (Reason: pain) 1 Days Qty: 14 0RF prednisone 50 mg tablet 50 mg PO DAILY 5 Days Qty: 5 0RF methocarbamol 750 mg tablet 750 mg PO Q6H PRN (Reason: muscle spasm) Qty: 30 0RF ondansetron 4 mg tablet,disintegrating 4 mg PO Q8H PRN (Reason: nausea and vomiting) 4 Days Qty: 12 0RF Referrals Follow up/Referrals: Xochitl Lim APRN [Primary Care Provider, Medical] - See instructions Activity Restrictions/Add. Instructions Additional Instructions/Restrictions: Follow-up with your grain combiner as well as your primary doctor for follow up regarding your chest pain and high blood pressure. I do encourage you to follow up with your PCP this week if symptoms continue. You can take Tylenol, Ibuprofen and are being prescribed a muscle relaxer to help with your symptoms. If you develop any new or worsening symptoms, or if you become concerned for your health for any reason, return to the emergency department for evaluation. Clinical Impressions Clinical Impression: Chest pain Print Language Print Language: Italian Discharge ED Provider: Jerrell Murillo Adult HPI <Hernando Smart MD - Last Filed: 05/20/25 06:57> General Chief complaint: Chest Pain Stated complaint: R side pain, hard to breathe Time Seen by Provider: 05/20/25 05:21 History of Present Illness HPI narrative: 44-year-old female with history of CO, obesity, bipolar disorder, hypertension, GERD presents for right sided lung pain . She reports it hurts to take deep breath. It send worsening, radiating into the back on the right side. She denies any urinary symptoms. Denies any fever or chills. Symptoms have been worsening over the last couple of days. Related Data Home Medications ?Medication ?Instructions ?Recorded ?Confirmed budesonide-formoterol HFA 160 2 puff inhalation BID Asthma 07/10/22 07/15/22 mcg-4.5 mcg/actuation aerosol inhaler (Symbicort) carvedilol 12.5 mg tablet 12.5 mg PO BID Hypertension 07/10/22 07/15/22 lamotrigine 100 mg tablet 100 mg PO DAILY bipolar 07/10/22 07/15/22 metformin 1,000 mg tablet 1,000 mg PO BID Diabetes 07/10/22 07/15/22 montelukast 10 mg tablet 10 mg PO PM allergies 07/10/22 07/15/22 nabumetone 500 mg tablet 500 mg PO DAILY Pain 07/10/22 07/15/22 omeprazole 40 mg capsule,delayed 40 mg PO DAILY GERD 07/10/22 07/15/22 release quetiapine 25 mg tablet 25 - 50 mg PO HSP PRN Sleep 07/10/22 07/15/22 ropinirole 2 mg tablet 4 mg PO HS restless leg syndrome 07/10/22 07/15/22 rosuvastatin 20 mg tablet 20 mg PO HS Cholesterol 07/10/22 07/15/22 sertraline 100 mg tablet 100 mg PO DAILY Depression 07/10/22 07/15/22 amitriptyline 25 mg tablet 25 - 75 mg PO HS SLEEP 07/16/22 07/16/22 aspirin 81 mg chewable tablet 81 mg PO DAILY HEART HEALTH 07/16/22 07/16/22 ergocalciferol (vitamin D2) 1,250 1,250 mcg PO WEEKLY Supplement 07/16/22 07/16/22 mcg (50,000 unit) capsule Previous Rx's ?Medication ?Instructions ?Recorded ketorolac 10 mg tablet 10 mg PO Q8H PRN pain 1 day #14 01/12/24 tabs lidocaine 5 % topical patch 1 patch topical DAILY #15 ea 01/12/24 (Lidoderm) cyclobenzaprine 5 mg tablet 10 mg (2 x 5 mg) PO TID PRN muscle 02/16/24 spasm #30 tabs gabapentin 300 mg capsule 300 mg PO TID #30 caps 02/16/24 methocarbamol 750 mg tablet 750 mg PO Q6H PRN muscle spasm #30 02/20/24 tabs prednisone 50 mg tablet 50 mg PO DAILY 5 days #5 tabs 02/20/24 ondansetron 4 mg disintegrating 4 mg PO Q8H PRN nausea and 12/13/24 tablet vomiting 4 days #12 tabs cyclobenzaprine 5 mg tablet 5 mg PO TID PRN muscle spasm 5 01/22/25 days #15 tabs ibuprofen 800 mg tablet 800 mg PO TID PRN pain 7 days #20 01/22/25 tabs methocarbamol 750 mg tablet 750 mg PO QID PRN muscle spasm #30 05/20/25 tabs Allergies Allergy/AdvReac Type Severity Reaction Status Date / Time latex Allergy Other Verified 01/22/25 09:08 Penicillins Allergy Unknown Verified 01/22/25 09:08 allergy reaction Sulfa (Sulfonamide Allergy Unknown Verified 01/22/25 09:08 Antibiotics) allergy reaction [facility] <Hernando Smart MD - Last Filed: 05/20/25 06:57> [facility] Disclaimer: The information contained in this section may have been updated after the patient was seen, as this information can be updated by other users. Medical History Diabetes mellitus, type 2 Surgical History S/P carpal tunnel release Family History Other Family history of cancer Social History Smoking Status: Current every day smoker second hand exposure: No alcohol intake: never substance use type: methamphetamine current occupational status: other Travel in the last 8 weeks?: None household members: other housing: apartment Have you lived/traveled outside [place] in past 30 days?: No Contact w/someone who lives/traveled outside US past 30 days?: No Exposure to someone with infectious disease in past 14 days?: No Do you have a fever (greater than 100.4 F or 38 C)?: No Have you tested positive for COVID-19?: No Exposed to someone with COVID-19 in past 14 days?: No Do you have a sore throat?: No Do you have a cough?: No Do you have any weakness?: No Do you have any diarrhea?: No Are you experiencing any unusual bleeding?: No Do you have any muscle aches/pain?: Yes Do you have any abdominal pain?: No Are you experiencing loss of taste or smell?: No Other Medical History Have you received the Flu Vaccine for this season: No Have you received the Pneumonia Vaccine: No <Hernando Smart MD - Last Filed: 05/20/25 06:57> ROS Obtained: Yes All systems reviewed & no additional complaints except as documented Physical Exam <Hernando Smart MD - Last Filed: 05/20/25 06:57> General General appearance: alert and in no apparent distress Head Head exam: atraumatic and normocephalic Eye Eye exam: Present normal appearance, PERRL and EOMI ENT ENT exam: Present normal oropharynx and normal external ear exam Neck Neck exam: Present normal inspection and full ROM Chest Chest inspection: Present normal inspection and symmetric chest wall rise; Absent tenderness Respiratory Respiratory exam: Present normal lung sounds bilaterally; Absent respiratory distress Cardiovascular Cardiovascular exam: Present regular rate and normal rhythm Abdominal Exam Abdominal exam: Present soft; Absent distention, tenderness or guarding Extremities Exam Extremities exam: Present normal inspection; Absent edema or joint swelling Back Exam Back exam: Present normal inspection; Absent tenderness Neurological Exam Neurological exam: Present alert and oriented X3; Absent motor sensory deficit Psychiatric Psychiatric exam: Present normal affect and normal mood Skin Skin exam: Present warm, dry and normal color Lymphatic Lymphatic Findings: no adenopathy Medical Decision Making <Hernando Smart MD - Last Filed: 05/20/25 06:57> Medical Records Medical records reviewed: Yes I reviewed the patient's medical records. Screening: Per USPSTF and CDC recommendations, given the prevalence of disease in our region, it is our hospital?s policy to screen for HIV and viral Hepatitis for all patients aged 18 and over and those with ongoing risk factors. [place] Inquiry Pt receiving controlled substance: No [place] was queried for this patient: No Vital Signs: 05/20/25 05:23 05/20/25 05:31 05/20/25 06:00 Temperature 97.6 F Temperature Source Oral Pulse Rate 69 60 Pulse Rate [Left] 79 Respiratory Rate 16 11 L Blood Pressure 132/89 Blood Pressure [Right Arm] 187/112 H Blood Pressure Mean Blood Pressure Mean [Right Arm] 137 02 Sat by Pulse Oximetry 97 96 Oxygen Delivery Method Room Air 05/20/25 06:30 05/20/25 06:40 05/20/25 06:42 Temperature Temperature Source Pulse Rate 63 65 64 Pulse Rate [Left] Respiratory Rate 14 14 11 L Blood Pressure 152/97 H 160/99 H 160/99 H Blood Pressure [Right Arm] Blood Pressure Mean 115 107 Blood Pressure Mean [Right Arm] 02 Sat by Pulse Oximetry 96 98 99 Oxygen Delivery Method Room Air 05/20/25 07:00 05/20/25 07:31 05/20/25 08:00 Temperature Temperature Source Pulse Rate 60 67 59 L Pulse Rate [Left] Respiratory Rate 11 L 13 8 L Blood Pressure 166/96 H 181/111 H 179/120 H Blood Pressure [Right Arm] Blood Pressure Mean Blood Pressure Mean [Right Arm] 02 Sat by Pulse Oximetry 98 98 98 Oxygen Delivery Method Lab Data Lab results reviewed: Yes I reviewed the patient's lab results. Lab Results 05/20/25 05:26: WBC 4.3 L, RBC 4.24, Hgb 12.9, Hct 38.6, MCV 91.0, MCH 30.4, MCHC 33.4, RDW 12.6, Plt Count 165, MPV 10.8 H, Neut % (Auto) 51.2, Lymph % (Auto) 34.2, [place] % (Auto) 8.7, Eos % (Auto) 4.9, Baso % (Auto) 0.5, Neut # (Auto) 2.2, Lymph # (Auto) 1.5, [place] # (Auto) 0.4, Eos # (Auto) 0.2, Baso # (Auto) 0.0, D-Dimer 0.64 H, Sodium 143, Potassium 4.3, Chloride 108 H, Carbon Dioxide 25, Anion Gap 14.3, BUN 15, Creatinine 0.60, Estimated Creat Clear 208, Estimated GFR 109, Est GFR ( Amer) 132, Glucose 124 H, Calcium 9.3, Total Bilirubin 0.5, AST 32, ALT 23, Alkaline Phosphatase 45, Troponin I < 0.01, Total Protein 7.9, Albumin 4.4, Globulin 3.5 H, Albumin/Globulin Ratio 1.3, Lipase 106, Serum HCG, Qual Negative 05/20/25 05:40: Urine Color Yellow, Urine Appearance Clear, Urine pH 6.0, Ur Specific [place] 1.020, Urine Protein Trace, Urine Glucose (UA) Negative, Urine Ketones Negative, Urine Blood Negative, Urine Nitrate Negative, Urine Bilirubin Negative, Urine Urobilinogen 0.2, Ur Leukocyte Esterase Negative, Urine RBC None, Urine WBC None, Ur Squamous Epith Cells None, Urine Bacteria None 05/20/25 07:12: Troponin I < 0.01 05/20/25 05:26 05/20/25 05:26 Orders (Tests/Meds): ED MEDICATIONS Discontinued Medications Generic Name Dose Route Start Last Admin Trade Name Ruizq PRN Reason Stop Dose Admin Acetaminophen 1,000 mg 05/20/25 05:24 05/20/25 05:33 Acetaminophen 500mg Tab PO 05/20/25 05:25 1,000 mg ONCE ONE Administration Sodium Chloride 1,000 mls @ 999 mls/hr 05/20/25 05:30 05/20/25 05:32 Sod Chlor 0.9% 1000ml Bag IV 05/20/25 06:30 999 mls/hr .Q1H1M ANDREI Administration Iopamidol 80 ml 05/20/25 06:57 05/20/25 06:58 Iopamidol-370 (76%);100ml Bottle IV 05/20/25 06:58 80 ml ONCE ONE Administration Ketorolac Tromethamine 30 mg 05/20/25 05:24 05/20/25 05:32 Ketorolac 30mg/Ml Vial IV 05/20/25 05:25 30 mg ONCE ONE Administration Ondansetron HCl 4 mg 05/20/25 05:24 05/20/25 05:32 Ondansetron 4mg/2ml Vial IV 05/20/25 05:25 4 mg ONCE ONE Administration Sodium Chloride 10 ml 05/20/25 06:57 05/20/25 06:57 Sodium Chloride 0.9% 10ml Syr (Rad Only) IV 05/20/25 06:58 10 ml ONCE ONE Administration Sodium Chloride 50 ml 05/20/25 06:57 05/20/25 06:57 0.9 % Sodium Chloride 50 Ml Vial IV 05/20/25 06:58 50 ml ONCE ONE Administration ORDERS Category Date Time Status CT angio chest PE protocol Stat Cat Scan 05/20/25 06:24 Completed CXR --portable [XR chest portable] Stat Exams 05/20/25 05:25 Completed CBC w/Auto Diff [Complete Blood Count Auto Diff] Stat Lab 05/20/25 05:26 Completed CMP [Comprehensive Metabolic Panel] Stat Lab 05/20/25 05:26 Completed D-Dimer Stat Lab 05/20/25 05:26 Completed HCG Qualitative, Serum Stat Lab 05/20/25 05:26 Completed Lipase Stat Lab 05/20/25 05:26 Completed Troponin I Q3H Lab 05/20/25 05:26 Completed Troponin I Q3H Lab 05/20/25 07:12 Completed UA [Urinalysis and Microscopic] Stat Lab 05/20/25 05:40 Completed ECG Data Tracing #1: I reviewed this ECG and interpreted as documented below: ECG initial impression date: 05/20/25 ECG initial impression time: 05:29 ECG normal with no acute: arrhythmias, ischemia, conduction abnormalities, chamber hypertrophy HEART Score History (anamnesis): Slightly suspicious ECG: Normal Age: <45 years Risk factors: Atherosclerosis history Troponin: </= normal limit HEART Score: 2 Medical Decision Narrative: 44-year-old female with history of coronary artery disease, hypertension, obesity, bipolar presents for right-sided lung pain , worsening over the last couple of days associated with shortness of breath and nausea. History was obtained via interactive discussion with patient. On arrival, patient is [afebrile, hemodynamically stable, satting appropriately, alert, oriented x4, GCS 15], moving all extremities spontaneously. Full physical exam performed and significant for clear lungs bilaterally Differential includes but is not limited to PE, ACS, musculoskeletal chest pain, pleurisy, renal pathology,. Patient was given Tylenol Toradol Zofran for symptomatic management and correction of underlying abnormalities. Workup initiated including CBC CMP lipase troponin EKG UA CT abdomen pelvis with IV contrast. On re-evaluation, patient [remains afebrile, HD stable.] Laboratory workup independently interpreted by me and significant for positive D-dimer, negative troponin, otherwise unremarkable.. Urine negative. Will follow-up with CT PE. Imaging independently interpreted by me and significant for your lungs on chest x-ray.. See radiology read for full review of final results. At this time care handed off to oncoming physician. <Jerrell Murillo MD - Last Filed: 05/20/25 08:10> Vital Signs: 05/20/25 05:23 05/20/25 05:31 05/20/25 06:00 Temperature 97.6 F Temperature Source Oral Pulse Rate 69 60 Pulse Rate [Left] 79 Respiratory Rate 16 11 L Blood Pressure 132/89 Blood Pressure [Right Arm] 187/112 H Blood Pressure Mean Blood Pressure Mean [Right Arm] 137 02 Sat by Pulse Oximetry 97 96 Oxygen Delivery Method Room Air 05/20/25 06:30 05/20/25 06:40 05/20/25 06:42 Temperature Temperature Source Pulse Rate 63 65 64 Pulse Rate [Left] Respiratory Rate 14 14 11 L Blood Pressure 152/97 H 160/99 H 160/99 H Blood Pressure [Right Arm] Blood Pressure Mean 115 107 Blood Pressure Mean [Right Arm] 02 Sat by Pulse Oximetry 96 98 99 Oxygen Delivery Method Room Air 05/20/25 07:00 05/20/25 07:31 05/20/25 08:00 Temperature Temperature Source Pulse Rate 60 67 59 L Pulse Rate [Left] Respiratory Rate 11 L 13 8 L Blood Pressure 166/96 H 181/111 H 179/120 H Blood Pressure [Right Arm] Blood Pressure Mean Blood Pressure Mean [Right Arm] 02 Sat by Pulse Oximetry 98 98 98 Oxygen Delivery Method Lab Data Lab Results 05/20/25 05:26: WBC 4.3 L, RBC 4.24, Hgb 12.9, Hct 38.6, MCV 91.0, MCH 30.4, MCHC 33.4, RDW 12.6, Plt Count 165, MPV 10.8 H, Neut % (Auto) 51.2, Lymph % (Auto) 34.2, [place] % (Auto) 8.7, Eos % (Auto) 4.9, Baso % (Auto) 0.5, Neut # (Auto) 2.2, Lymph # (Auto) 1.5, [place] # (Auto) 0.4, Eos # (Auto) 0.2, Baso # (Auto) 0.0, D-Dimer 0.64 H, Sodium 143, Potassium 4.3, Chloride 108 H, Carbon Dioxide 25, Anion Gap 14.3, BUN 15, Creatinine 0.60, Estimated Creat Clear 208, Estimated GFR 109, Est GFR ( Amer) 132, Glucose 124 H, Calcium 9.3, Total Bilirubin 0.5, AST 32, ALT 23, Alkaline Phosphatase 45, Troponin I < 0.01, Total Protein 7.9, Albumin 4.4, Globulin 3.5 H, Albumin/Globulin Ratio 1.3, Lipase 106, Serum HCG, Qual Negative 05/20/25 05:40: Urine Color Yellow, Urine Appearance Clear, Urine pH 6.0, Ur Specific [place] 1.020, Urine Protein Trace, Urine Glucose (UA) Negative, Urine Ketones Negative, Urine Blood Negative, Urine Nitrate Negative, Urine Bilirubin Negative, Urine Urobilinogen 0.2, Ur Leukocyte Esterase Negative, Urine RBC None, Urine WBC None, Ur Squamous Epith Cells None, Urine Bacteria None 05/20/25 07:12: Troponin I < 0.01 Orders (Tests/Meds): ED MEDICATIONS Discontinued Medications Generic Name Dose Route Start Last Admin Trade Name Freq PRN Reason Stop Dose Admin Acetaminophen 1,000 mg 05/20/25 05:24 05/20/25 05:33 Acetaminophen 500mg Tab PO 05/20/25 05:25 1,000 mg ONCE ONE Administration Sodium Chloride 1,000 mls @ 999 mls/hr 05/20/25 05:30 05/20/25 05:32 Sod Chlor 0.9% 1000ml Bag IV 05/20/25 06:30 999 mls/hr .Q1H1M ANDREI Administration Iopamidol 80 ml 05/20/25 06:57 05/20/25 06:58 Iopamidol-370 (76%);100ml Bottle IV 05/20/25 06:58 80 ml ONCE ONE Administration Ketorolac Tromethamine 30 mg 05/20/25 05:24 05/20/25 05:32 Ketorolac 30mg/Ml Vial IV 05/20/25 05:25 30 mg ONCE ONE Administration Ondansetron HCl 4 mg 05/20/25 05:24 05/20/25 05:32 Ondansetron 4mg/2ml Vial IV 05/20/25 05:25 4 mg ONCE ONE Administration Sodium Chloride 10 ml 05/20/25 06:57 05/20/25 06:57 Sodium Chloride 0.9% 10ml Syr (Rad Only) IV 05/20/25 06:58 10 ml ONCE ONE Administration Sodium Chloride 50 ml 05/20/25 06:57 05/20/25 06:57 0.9 % Sodium Chloride 50 Ml Vial IV 05/20/25 06:58 50 ml ONCE ONE Administration ORDERS Category Date Time Status CT angio chest PE protocol Stat Cat Scan 05/20/25 06:24 Completed CXR --portable [XR chest portable] Stat Exams 05/20/25 05:25 Completed CBC w/Auto Diff [Complete Blood Count Auto Diff] Stat Lab 05/20/25 05:26 Completed CMP [Comprehensive Metabolic Panel] Stat Lab 05/20/25 05:26 Completed D-Dimer Stat Lab 05/20/25 05:26 Completed HCG Qualitative, Serum Stat Lab 05/20/25 05:26 Completed Lipase Stat Lab 05/20/25 05:26 Completed Troponin I Q3H Lab 05/20/25 05:26 Completed Troponin I Q3H Lab 05/20/25 07:12 Completed UA [Urinalysis and Microscopic] Stat Lab 05/20/25 05:40 Completed HEART Score HEART Score: 2 Medical Decision Narrative: 44-year-old female with history of coronary artery disease, hypertension, obesity, bipolar presents for right-sided lung pain , worsening over the last couple of days associated with shortness of breath and nausea. History was obtained via interactive discussion with patient. On arrival, patient is [afebrile, hemodynamically stable, satting appropriately, alert, oriented x4, GCS 15], moving all extremities spontaneously. Full physical exam performed and significant for clear lungs bilaterally Differential includes but is not limited to PE, ACS, musculoskeletal chest pain, pleurisy, renal pathology,. Patient was given Tylenol Toradol Zofran for symptomatic management and correction of underlying abnormalities. Workup initiated including CBC CMP lipase troponin EKG UA CT abdomen pelvis with IV contrast. On re-evaluation, patient [remains afebrile, HD stable.] Laboratory workup independently interpreted by me and significant for positive D-dimer, negative troponin, otherwise unremarkable.. Urine negative. Will follow-up with CT PE. Imaging independently interpreted by me and significant for your lungs on chest x-ray.. See radiology read for full review of final results. At this time care handed off to oncoming physician. Jerrell Murillo MD At the time my assumption of care, plan was to follow-up repeat troponin and CTA imaging results. On my interpretation of CT imaging, no aortic dissection or pulmonary embolism or pneumonia is identified. Patient's repeat troponin is negative. Heart score of 2. Patient has remained hypertensive throughout her visit here, however previous records indicate that she has been hypertensive to this degree before. It is felt that she is appropriate for discharge at this time. Patient's symptomatology could be related to musculoskeletal pain versus pleurisy. Patient states that she is currently taking baclofen and NSAIDs as well as Tylenol. Patient states that she sees a grain combiner this month and has close follow-up with her primary care physician. She was encouraged to follow-up with them closely. Is appropriate for discharge at this time and she is in agreement with this plan. All questions were answered. Procedures <Hernando Smart MD - Last Filed: 05/20/25 06:57> Risk/Benefits of Procedure(s) Were Explained: Yes Critical Care <Hernando Smart MD - Last Filed: 05/20/25 06:57> Critical Care Time Critical Care Time: No
--- OUTSIDE RECORDS SUMMARY | 2025-05-20 05:23 | XMS_ITS | Encounter Summary ---
Author Organization [place] [address] Care Team Providers Care Room Attendant Name Role Phone Xochitl Lim APRN Primary Care Provider [phone]- [phone] Encounter Details Date Type Department Care Team (Late st Contact Info) Description 02/28/2025 Results Follow-Up [facility] [address] [place] [id number] Maryse Barber, VENDOR ANALYST [address] [place] [address] [place] PELVIS AND TRANSVAGINAL NON OB COMPLETE Social History Tobacco Use Types Packs/Day Years Used Date Smoking Tobacco: Former Cigarettes 0.5 32.9 S tarted: 06/12/1992 Smokeless Tobacco: Never Alcohol Use Standard Drinks/Week Comments Not Currently 0 (1 standard drink = 0.6 oz pur e alcohol) [facility] Utilities Answer Date Recorded In the past 12 months has [employer] electric, gas, oil, or water [employer] threatened to shut off services in your home? No 04/02/2024 Overall Financial Resource Strain (CARDIA) Answe r Date Recorded How hard is it for you to pa y for the very basics like food, housing, medical care, and heating? Not very hard 04/02/2024 PHQ-2 Answer Date Recorded PHQ-2 Total Score 6 10/29/2024 [facility] [place] of Occupat ional Health - Occupational Stress [...] place to sleep or slept in a senior care (including now)? Yes 07/06/2023 [facility] IP Transportation Answer D ate Recorded In [...] on file Sexual Orientation Not on file documented as of this encounter Functional Status * Is the person deaf or does he/she have serious difficulty hearing? Answer Date of Assessment Author No 10/29/2024 8:18 AM Anitha Padilla MA * Is the person blind or does he/she have serious difficulty seeing even when wearing glasses? Answer Date of Assessment Author No 10/29/2024 8:18 AM Anitha Padilla MA * Does this person have serious difficulty walking or climbing stairs? Answer Date of Assessment Author No 10/29/2024 8:18 AM Anitha Padilla MA * Does this person have difficulty dressing or bathing? Answer Date of Assessment Author No 10/29/2024 8:18 AM Anitha Padilla MA * Because of a physical, mental or emotional condition, does this person have difficulty doing errands alone such as visiting a doctor's office or shopping? Answer Date of Assessment Author No 10/29/2024 8:18 AM Anitha Padilla MA documented as of this encounter Mental Status * Because of a physical, mental or emotional condition, does this person have serious difficulty concentrating, remembering or making decisions? Answer Entry Date Author No 10/29/2024 8:18 AM Anitha Padilla MA documented in this encounter Plan of Treatment Upcoming Encounters Date Type Department Care Team (Late st Contact Info) Description 06/11/2025 2:30 PM EDT Office [place] [address] Damion Boss MD [address] [place] [address] documented as of this encounter Goals Goal [...] documented as of this encounter Visit Diagnoses Not on filedocumented in this encounter Additional Health Concerns Assessment Noted Time PHQ-9 Depression Total Score: 24 025 8:21 AM EST PHQ-2 Depression Total Score: 6 10/29/19 25 8:21 AM EST documented as of this encounter Care Teams Room Attendant Relationship Specialty Start Date End Date Xochitl Lim APRN [address] [place] [address] PCP - General Nurse Practitioner 11/09/23 documented as of this encounter
--- OUTSIDE RECORDS SUMMARY | 2025-05-20 05:23 | XMS_ITS | Encounter Summary ---
Author Organization [place] [address] Care Team Providers Care Art Handler Name Role Phone Xochitl Lim APRN Primary Care Provider [phone]- [phone] Reason for Visit * Reason Comments Medication Refill Encounter Details Date Type Department Care Team (Late st Contact Info) Description 05/15/2025 Refill [facility] [address] [place] [phone] Xochitl Lim APRN [address] [place] [address] Medication Refill Social History Tobacco Use Types Packs/Day Years Used Date Smoking Tobacco: Former Cigarettes 0.5 32.9 S tarted: 06/12/1992 Smokeless Tobacco: Never Alcohol Use Standard Drinks/Week Comments Not Currently 0 (1 standard drink = 0.6 oz pur e alcohol) [facility] Utilities Answer Date Recorded In the past 12 months has [employer], gas, oil, or water [employer] threatened to shut off services in your home? No 04/02/2024 Overall Financial Resource Strain (CARDIA) Answe r Date Recorded How hard is it for you to pa y for the very basics like food, housing, medical care, and heating? Not very hard 04/02/2024 PHQ-2 Answer Date Recorded PHQ-2 Total Score 6 10/29/2024 [facility] [place] of Occupat ional Health - Occupational Stress [...] a senior care (including now)? Yes 07/06/2023 [facility] IP Transportation Answer D ate Recorded In [...] Anitha Padilla MA documented in this encounter Ordered Prescriptions Prescription Sig Dispense Quantity Refills Last Filled Start Date End Date baclofen (LIORESAL) 10 mg Oral Tablet Take 1 Tablet by mouth 2 times daily as needed for Muscle spasms. 60 Tablet 1 05/16/2025 ibuprofen (ADVIL;MOTRIN) 800 mg Oral Tablet Take 1 Tablet by mouth 3 times daily as needed for Pain for 7 days. 20 Tablet 05/16/2025 documented in this encounter Plan of Treatment Upcoming Encounters Date Type Department Care Team (Late st Contact Info) Description 06/11/2025 2:30 PM EDT [place] [address] Damion Boss MD [address] [place] [address] documented as of this encounter Goals Goal [...] and use clarity deny General Yes Abi Villafana, PATRICK Stay Tobacco Free Lifestyle No Xochitl Mary CCMA HEMOGLOBIN A1C < 7.0 Result Component 6.1( 5 9:03 AM EST) No Xochitl Mary CCMA documented as of this encounter Visit Diagnoses Not on filedocumented in this encounter Discontinued Medications Medication Sig Discontinue Reason Start Date End Da te ibuprofen (ADVIL;MOTRIN) 800 mg Oral Tablet Take 1 Tablet by mouth 3 times daily as needed for Pain for 7 days. 02/01/2025 05/16/2025 baclofen (LIORESAL) 10 mg Oral Tablet Take 1 Tablet by mouth 2 times daily as needed for Muscle spasms. 03/01/2025 05/16/2025 documented as of this encounter Additional Health Concerns Assessment Noted Time PHQ-9 Depression Total Score: 24 025 8:21 AM EST PHQ-2 Depression Total Score: 6 10/29/19 25 8:21 AM EST documented as of this encounter Care Teams Art Handler Relationship Specialty Start Date End Date Xochitl Lim APRN [address] [place] [id number] PCP - General Nurse Practitioner 11/09/23 documented as of this encounter
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
--- OUTSIDE RECORDS SUMMARY | 2025-05-20 05:23 | XMS_ITS | Encounter Summary ---
Author Organization [place] [address] Care Team Providers Care Health Social Work Professor Name Role Phone Xochitl Lim APRN Primary Care Provider [phone]- [phone] Reason for Visit * Reason Comments Medication Refill Encounter Details Date Type Department Care Team (Late st Contact Info) Description 04/18/2025 Refill [facility] [address] [place] [phone] Xochitl Lim APRN [address] [place] [address] Medication Refill Social History Tobacco Use Types Packs/Day Years Used Date Smoking Tobacco: Former Cigarettes 0.5 32.9 S tarted: 06/12/1992 Smokeless Tobacco: Never Alcohol Use Standard Drinks/Week Comments Not Currently 0 (1 standard drink = 0.6 oz pur e alcohol) [facility] Utilities Answer Date Recorded In the past 12 months has [employer] gas, oil, or water [employer] threatened to shut off services in your home? No 04/02/2024 Overall Financial Resource Strain (CARDIA) Answe r Date Recorded How hard is it for you to pa y for the very basics like food, housing, medical care, and heating? Not very hard 04/02/2024 PHQ-2 Answer Date Recorded PHQ-2 Total Score 6 10/29/2024 [facility] of Occupat ional Health - Occupational Stress [...] place to sleep or slept in a mcfp (including now)? Yes 07/06/2023 [facility] IP Transportation Answer D ate [...] Refills Last Filled Start Date End Date rosuvastatin (CRESTOR) 40 mg Oral TabletIndications:N STEMI (non-ST elevated myocardial infarction) (HCC) Take 1 Tablet by mouth once nightly. 100 Tablet 1 04/19/2025 documented in this encounter Miscellaneous Notes * Telephone Encounter - Agnieszka Paulino CPhT - 04/19/2025 10:14 AM EDT rosuvastatin (CRESTOR) 40 mg Oral Tablet Future Visit: none Last Assessed Visit: 10/29/24 (AWV or similar dx) Follow-Up: 10/29/25 All protocols passed. Refills approved and sent to requesting pharmacy. [facility] if an appointment is needed. documented in this encounter Plan of Treatment Upcoming Encounters Date Type Department Care Team (Late st Contact Info) Description 06/11/2025 2:30 PM EDT Office [place] [address] Damion Boss MD [address] [place] [address] documented as of this encounter Goals Goal [...] as of this encounter Visit Diagnoses Diagnosis NSTEMI (non-ST elevated myocardial infarction) (HCC) Acute myocardial infarction, subendocardial infarction, episode of care unspecified documented in this encounter Discontinued Medications Medication Sig Discontinue Reason Start Date End Da te rosuvastatin (CRESTOR) 40 mg Oral TabletIndications:NSTEMI (non-ST elevated myocardial infarction) (HCC) Take 1 Tablet by mouth once nightly. 02/01/2025 04/19/2025 documented as of this encounter Additional Health Concerns Assessment Noted Time PHQ-9 Depression Total Score: 24 025 8:21 AM EST PHQ-2 Depression Total Score: 6 10/29/19 25 8:21 AM EST documented as of this encounter Care Teams Health Social Work Professor Relationship Specialty Start Date End Date Xochitl Lim APRN [address] [place] [address] PCP - General Nurse Practitioner 11/09/23 documented as of this encounter
--- OUTSIDE RECORDS SUMMARY | 2025-05-20 05:23 | XMS_ITS | Encounter Summary ---
Author Organization [place] [address] Care Team Providers Care Tuber Operator Name Role Phone Xochitl Lim APRN Primary Care Provider [phone]- [phone] Encounter Details Date Type Department Care Team (Late st Contact Info) Description 03/01/2025 Results Follow-Up [facility] [address] [place] [phone] Xochitl Lim APRN [address] [place] [address] MOLECULAR VAGINITIS PANEL (MVP) Social History Tobacco Use Types Packs/Day Years Used Date Smoking Tobacco: Former Cigarettes 0.5 32.9 S tarted: 06/12/1992 Smokeless Tobacco: Never Alcohol Use Standard Drinks/Week Comments Not Currently 0 (1 standard drink = 0.6 oz pur e alcohol) [facility] Utilities Answer Date Recorded In the past 12 months has [employer], gas, oil, or water [employer] threatened to shut off services in your home? No 04/02/2024 Overall Financial Resource Strain (CARDIA) Answe r Date Recorded How hard is it for you to pa y for the very basics like food, housing, medical care, and heating? Not very hard 04/02/2024 PHQ-2 Answer Date Recorded PHQ-2 Total Score 6 10/29/2024 [facility] [place] of Occupat ional Health - Occupational Stress [...] place to sleep or slept in a assisted (including now)? Yes 07/06/2023 [facility] IP Transportation Answer D ate Recorded [...] Date Author No 10/29/2024 8:18 AM Anitha Paidlla MA documented in this encounter Plan of Treatment Upcoming Encounters Date Type Department Care Team (Late st Contact Info) Description 06/11/2025 2:30 PM EDT [place] [address] Damion Boss MD [address] [place] [address] documented as of this encounter Goals Goal [...] Result Component 6.1( 9:03 AM EST) No Usman, Xochitl Lyndsey, CCMA documented as of this encounter Visit Diagnoses Not on filedocumented in this encounter Additional Health Concerns Assessment Noted Time PHQ-9 Depression Total Score: 24 025 8:21 AM EST PHQ-2 Depression Total Score: 6 10/29/19 25 8:21 AM EST documented as of this encounter Care Teams Tuber Operator Relationship Specialty Start Date End Date Xcohitl Lim APRN [address] [place] [address] PCP - General Nurse Practitioner 11/09/23 documented as of this encounter
--- NOTE | 2025-05-20 05:25 | XR_ITS ---
PROCEDURE INFORMATION: Exam: XR Chest Exam date and time: 05/20/2025 5:41 AM Age: 44 years old Clinical indication: Other: Chest pain; Additional info: Cp TECHNIQUE: Imaging protocol: Radiologic exam of the chest. Views: 1 view. COMPARISON: CT ANGIO CHEST 01/22/2025 10:23 AM FINDINGS: Lungs: Unremarkable. No consolidation. Pleural spaces: Unremarkable. No pleural effusion. No pneumothorax. Heart/Mediastinum: Unremarkable. No cardiomegaly. Bones/joints: Unremarkable. IMPRESSION: No acute findings.
--- NOTE | 2025-05-20 05:29 | ECG_ITS ---
APPROVED REPORT Exam: Resting ECG HR:69 bpm ECG Measurements Heart Rate 69 AXES NH 152 P 46 QRSd 101 QRS 49 QT 403 T 35 QTc 422 Conclusion SINUS RHYTHM NORMAL ECG UNCONFIRMED REPORT NSR. No ST elevation or depression Electronically signed by : DINORAH ROWAN, 05/21/2025 15:39:03
[2025-05-20] MEDS: KETOROLAC 30MG/ML VIAL 30 MG IV (05:32)
[2025-05-20] MEDS: ONDANSETRON 4MG/2ML VIAL 4 MG IV (05:32)
[2025-05-20] MEDS: 0.9 % SODIUM CHLORIDE 1000ML 1,000 ML 999 ML IV (05:32)
[2025-05-20] MEDS: ACETAMINOPHEN 500MG TAB 1000 MG PO (05:33)
[2025-05-20 05:40] LABS: Hematocrit 38.6 % (37.0-47.0); Hemoglobin 12.9 g/dL (12.2-16.2); Immature Granulocytes % 0.5 %; Mean Corpuscular HGB Conc 33.4 g/dL (31.8-35.4); Mean Corpuscular Hemoglobin 30.4 pg (27.0-31.2); Mean Corpuscular Volume 91.0 fl (81-99); Nucleated Red Blood Cells % 0 %; Platelet Count 165 K/mm3 (142-424); Red Blood Count 4.24 M/mm3 (4.20-5.40); Red Cell Distribution Width-SD 41.4 fL; White Blood Count 4.3 K/mm3 (4.8-10.8)
--- NOTE | 2025-05-20 05:42 | PC.NURSE ---
Radiology at bedside.
[2025-05-20 05:46] LABS: Microscopic, Urine URINE MICROSCOPIC (MICROSCOPIC)
[2025-05-20 05:47] LABS: Alanine Aminotransferase 23 U/L (12-78); Albumin Level 4.4 g/dl (3.5-5.0); Albumin/Globulin Ratio 1.3 (1.1-1.8); Alkaline Phosphatase 45 U/L (38-126); Anion Gap 14.3 mEq/L (5-15); Aspartate Amino Transferase 32 U/L (14-36); Bilirubin,Total 0.5 mg/dl (0.2-1.3); Blood Urea Nitrogen 15 mg/dl (7-17); Calcium 9.3 mg/dl (8.4-10.2); Carbon Dioxide 25 mmol/L (22.0-30.0); Chloride 108 mmol/L (98-107); Creatinine Clearance Estimated 208 mL/min (50-200); Creatinine,Serum 0.60 mg/dl (0.52-1.04); Estimated Glomerular Filt Rate 109 ml/min (>60); GFR (African American) 132 ML/MIN (>60); Globulin 3.5 g/dL (1.3-3.2); Glucose 124 mg/dl (74-100); Lipase 106 U/L (23-300); Potassium 4.3 mmoL/L (3.5-5.1); Sodium 143 mmol/L (136-145); Total Protein,Serum 7.9 g/dl (6.3-8.2)
[2025-05-20 05:48] LABS: Bilirubin,Urine Negative (Negative); Color,Urine YELLOW (Yellow); Glucose,Urine (UA) Negative (Negative); Ketones,Urine Negative (Negative); Leukocyte Esterase,Urine Negative (Negative); PH,Urine 6.0 (5.0-8.5); Protein,Urine TRACE (Negative); Specific Gravity, Urine 1.020 (1.005-1.030); Urobilinogen,Urine 0.2 EU/dl (0.2)
[2025-05-20 05:52] LABS: D-Dimer 0.64 ug/mL (0.0-0.5)
[2025-05-20 06:02] LABS: Troponin I < 0.01 ng/ml (0.00-0.034)
--- OUTSIDE RECORDS SUMMARY | 2025-05-20 06:23 | XMS_ITS | CCD ---
Author Organization Unknown Care Team Providers Care Manager Maintenance Name Role Phone Unavailable Primary Care Provider Unavailabl e Unavailable Chronic Care Management Unavaila ble Summary Purpose DataExchange Insurance Providers Payer name Policy type / Coverage type Covered republican ID Effective Begin Date Effective End Date MEDICARE [place] [id number] Unknown Family History Family History data not found Medication Administered No Medication Administered data Reason For Visit No Reason For Visit data Medical Equipment No Medical Equipment data Advance Directives No Advance Directive data
--- NOTE | 2025-05-20 06:24 | CT_ITS ---
PROCEDURE INFORMATION: Exam: CTA Chest With Contrast Exam date and time: 05/20/2025 6:48 AM Age: 44 years old Clinical indication: Pain and abnormal findings; Abnormal diagnostic tests; Elevated d-dimer; Other: Cp; Additional info: Cp, positive dimer TECHNIQUE: Imaging protocol: Computed tomographic angiography of the chest with contrast. Exam focused on the arteries. 3D rendering (Not supervised by radiologist): MIP and/or 3D reconstructed images were created by the technologist. Radiation optimization: All CT scans at this facility use at least one of these dose optimization techniques: automated exposure control; mA and/or kV adjustment per patient size (includes targeted exams where dose is matched to clinical indication); or iterative reconstruction. Contrast material: ISOVUE; Contrast volume: 80 ml; Contrast route: INTRAVENOUS (IV); COMPARISON: CT ANGIO CHEST 01/22/2025 10:23 AM FINDINGS: Pulmonary arteries: No evidence of pulmonary embolus to the segmental level. Aorta: No aneurysm of the aorta. No dissection of the aorta. Lungs: Unremarkable. No consolidation. No masses. Pleural spaces: Unremarkable. No pneumothorax. No pleural effusion. Heart: There is calcification of the aortic valve annulus. There is calcification of the mitral valve annulus. Coronary arteries: Coronary artery calcifications may indicate coronary artery disease. Lymph nodes: Unremarkable. No enlarged lymph nodes. Liver: Lobulated liver consistent with cirrhosis Gallbladder and biliary ducts: Cholecystectomy Bones/joints: Unremarkable. No acute fracture. Soft tissues: Unremarkable. IMPRESSION: 1. No evidence of pulmonary embolus to the segmental level. 2. No aneurysm of the aorta. 3. No dissection of the aorta.
--- NOTE | 2025-05-20 06:43 | PC.NURSE ---
PT transported to radiology via WC by radiology staff.
[2025-05-20 06:52] LABS: HCG Qualitative, Serum Negative (Negative)
--- NOTE | 2025-05-20 06:54 | PC.NURSE ---
PT transported back to room from radiology via WC by radiolgy staff.
[2025-05-20] MEDS: SODIUM CHLORIDE 0.9% 10ML SYR (RAD ONLY) 10 ML IV (06:57)
[2025-05-20] MEDS: 0.9 % SODIUM CHLORIDE 50 ML VIAL IV (06:57)
[2025-05-20] MEDS: IOPAMIDOL-370 (76%);100ML BOTTLE 80 ML IV (06:58)
[2025-05-20 07:49] LABS: Troponin I < 0.01 ng/ml (0.00-0.034)
== END 2025-05-20 08:20 | disposition home or self-care (01) ==
PROVIDERS: Emergency Medicine; Emergency Provider Student in an Organized Health Care Education/Training Program; PCP Nurse Practitioner
DX: R07.1 Chest pain on breathing (principal); F17.210 Nicotine dependence, cigarettes, uncomplicated; I10 Essential (primary) hypertension; K21.9 Gastro-esophageal reflux disease without esophagitis; E11.9 Type 2 diabetes mellitus without complications; Z86.79 Personal history of other diseases of the circulatory system
CPT/HCPCS: 71045; 71275; 80053; 81001; 83690; 84484; 84703; 85025; 85378; 93005; 96361; 96374; 96375; 99285; J1885; J2405; J7030; Q9967

== ENCOUNTER 2025-09-04 11:43 | Emergency (ER) | payer MEDICARE, SELFPAY ==
--- OUTSIDE RECORDS SUMMARY | 2017-02-07 12:13 | XMS_ITS | Encounter Summary ---
Author Organization [place] [address] Care Team Providers Care Forging Roll Operator Name Role Phone Ge Bowden MD Primary Care Provider [phone] Encounter Details Date Type Department Care Team (Latest Contact Info) Description 02/07/2017 1:13 PM EDT Hospital Encounter [facility] Referral Lab [address] [place] [phone] Annemarie Garcias, ENTRY LEVEL PARALEGAL Pain in left wrist Social History Tobacco Use Types Packs/Day Years Used Date Smoking Tobacco: Former Cigarettes 0.5 33.2 S tarted: 06/12/1992 Smokeless Tobacco: Never Alcohol Use Standard Drinks/Week Comments Not Currently 0 (1 standard drink = 0.6 oz pur e alcohol) [facility] Utilities Answer Date Recorded In the past 12 months has [employer] electric, gas, oil, or water [employer] threatened to shut off services in your home? No 04/02/2024 Overall Financial Resource Strain (CARDIA) Answe r Date Recorded How hard is it for you to pa y for the very basics like food, housing, medical care, and heating? Not very hard 04/02/2024 PHQ-2 Answer Date Recorded PHQ-2 Total Score 6 10/29/2024 [facility] [place] of Occupat ional Health - Occupational Stress Questionnaire Answer Date Recorded Do you feel stress - tense, restless, nervous, or anxious, or unable to sleep at night because your mind is troubled all the time - these days? To some extent 04/02/2024 Exercise Vital Sign Answer Date Recorde d On average, how many days pe r week do you engage in moderate to strenuous exercise (like a brisk walk)? 0 days 04/02/2024 On average, how many minutes do you engage in exercise at this level? 0 min 04/02/2024 Hunger Vital Sign Answer Date Recorded Within the past 12 months, y ou worried that your food would run out before you got the money to buy more. Never true 04/02/20 24 Within the past 12 months, t he food you bought just didn't last and you didn't have money to get more. Never true 04/02/2024 PRAPARE - Transportation Answer Date Re corded In the past 12 months, has l ack of transportation kept you from medical appointments or from getting medications? Yes 12/19 In the past 12 months, has l ack of transportation kept you from meetings, work, or from getting things needed for daily living? Yes 01/07/2024 Housing Stability Vital Sign Answer Ceferino e Recorded In the last 12 months, was t here a time when you were not able to pay the mortgage or rent on time? No 07/06/2023 In the last 12 months, how many places have you lived? 4 07/06/2023 In the last 12 months, was t here a time when you did not have a steady place to sleep or slept in a penitentiary (including now)? Yes 07/06/2023 [facility] IP Transportation Answer D ate Recorded In the past 12 months, has l ack of reliable transportation kept you from medical appointments, meetings, work or from getting things needed for daily living? No 04/02/2024 Comments No Sex and Gender Information Value Date Recorded Sex Assigned at Not on file Legal Sex Female 4:37 AM EDT Gender Identity Not on file Sexual Orientation Not on file COVID-19 Exposure Response Date Recorded In the last 10 days, have yo u been in contact with someone who was confirmed or suspected to have Coronavirus/COVID-19? No / Unsure 01/12/2024 6:23 PM EDT documented as of this encounter Functional Status documented as of this encounter Mental Status * Question Answer Entry Date Author Because of a physical, menta l or emotional condition, does this person have difficulty doing errands alone such as visiting a doctor's office or shopping? No 10/29/2024 8:18 AM Anitha Padilla MA Because of a physical, menta l or emotional condition, does this person have serious difficulty concentrating, remembering or making decisions? No 10/29/2024 8:18 AM Anitha Padilla MA documented in this encounter Plan of Treatment Upcoming Encounters Date Type Department Care Team (Late st Contact Info) Description 09/06/2025 8:15 AM EST Office Visit [facility] [address] [place] [phone] Angelic Alexis, ENTRY LEVEL PARALEGAL [address] [address] 06/17/2026 2:10 PM EDT Office Visit [facility] [address] [address] Damion Boss MD [address] [place] [address] [phone] Scheduled Orders Name Type Priority Associated Diagnoses Orde r Schedule MISCELLANEOUS LAB Lab Routine Pain in left wrist ONCE for 1 Occurrences starting 02/07/2017 until 03/14/2017 documented as of this encounter Goals Goal Patient Goal Type Associated Problems Recent Progress Patient-Stated? Author Blood Pressure < 140/90 Blood Pressure 132/90(2024 9:29 AM EDT) No Xochitl Mary CCMA BMI (Calculated) < 30 General 41.7(07/10/20 25 1:17 PM EDT) No Xochitl Mary CCMA Maintain a healthy diet, exercise regularly and maintain an ideal body weight General No Xochitl Mary CCMA Wear dexcom for 10 days, and use clarity dney General Yes Abi Villafana RN Stay Tobacco Free Lifestyle No Xochitl Mary CCMA HEMOGLOBIN A1C < 7.0 Result Component 6.1( 5 1:24 PM EDT) No Xochitl Mary CCMA documented as of this encounter Results * C-REACTIVE PROTEIN (02/11/2017 12:30 PM EDT) [facility] CRP 4.05 <=5.00 mg/L [facility] Blood specimen (specimen) 02/11/2017 12:30 PM EDT 02/11/2017 3:27 PM EDT Narrative [facility] - 02/11/2017 4:20 PM EDT LATEX ALLERGY TESTING us Annemarie R Gergen ENTRY LEVEL PARALEGAL CHEMISTRY ORDERABLES Final Re sult Performing Organization Address [facility]/[place] [address] * RHEUMATOID FACTOR QUANTITATIVE (02/11/2017 12:30 PM EDT) [facility] RF Quant <10 <=14 IU/mL [facility] Blood specimen (specimen) 02/11/2017 12:30 PM EDT 02/11/2017 3:27 PM EDT Narrative [facility] - 02/11/2017 4:41 PM EDT LATEX ALLERGY TESTING us Annemarie R Gergen ENTRY LEVEL PARALEGAL IMMUNOLOGY ORDERABLES Final R esult Performing Organization Address [facility] [place] [address] * ANTINUCLEAR ANTIBODY SCREEN (02/11/2017 12:30 PM EDT) [facility] JENISE Screen Negative [facility] Comment: JENISE samples are screened using an automated EIA assay. All samples that screen positive are titered by an IFA method and will include an JENISE pattern. A titer of < 1:80 is considered clinically insignificant. In general, a titer >= 1:160 is considered significant positive. Blood specimen (specimen) 02/11/2017 12:30 PM EDT 02/11/2017 3:27 PM EDT Narrative [facility] - 02/13/2017 12:21 PM EDT LATEX ALLERGY TESTING us Annemarie R Gergen ENTRY LEVEL PARALEGAL IMMUNOLOGY ORDERABLES Final R esult Performing Organization Address [facility]/ZIP Co de Phone Number [place] [phone] * (ABNORMAL) SEDIMENTATION RATE AUTOMATED (02/11/2017 12:30 PM EDT) Pathologist [facility] Sed Rate 50(H) 0 - 20 mm/hr [facility] Blood specimen (specimen) 02/11/2017 12:30 PM EDT 02/11/2017 12:35 PM EDT Narrative [facility] - 02/11/2017 1:24 PM EDT LATEX ALLERGY TESTING us Annemariedaryl Garcias ENTRY LEVEL PARALEGAL HEMATOLOGY ORDERABLES Final R esult Performing Organization Address [facility]/ZIP Co de Phone Number [facility] [address] [place] [phone] * URIC ACID (02/11/2017 12:30 PM EDT) [facility] Uric Acid 4.9 2.4 - 5.7 mg/dL [facility] Blood specimen (specimen) 02/11/2017 12:30 PM EDT 02/11/2017 3:27 PM EDT Narrative [facility] - 02/11/2017 4:20 PM EDT LATEX ALLERGY TESTING us Annemariedaryl Garcias ENTRY LEVEL PARALEGAL CHEMISTRY ORDERABLES Final Re sult Performing Organization Address [facility] Co de Phone Number [facility] [address] [place] [address] documented in this encounter Visit Diagnoses Diagnosis Pain in left wrist Pain in joint, forearm Pain in left wrist Pain in joint, forearm documented in this encounter Additional Health Concerns Infection Onset Date Last Indicated Resolved Time R/O COVID-19 10/19/2020 10/19/2020 10/19/2020 6:54 PM EST R/O Influenza 10/19/2020 10/19/2020 10/19/2020 6:5 4 PM EST R/O COVID-19 08/16/2021 08/16/2021 08/16/2021 8:10 PM EST R/O COVID-19 09/22/2021 09/22/2021 09/22/2021 9:48 PM EST R/O COVID-19 08/10/2023 08/10/2023 08/10/2023 7:33 PM EST documented as of this encounter Care Teams Forging Roll Operator Relationship Specialty Start Date End Date Ge Bowden MD PCP - General 07/21/10 07/28/20 documented as of this encounter
--- OUTSIDE RECORDS SUMMARY | 2020-01-07 14:18 | XMS_ITS | Encounter Summary ---
Author Organization [place] [address] Care Team Providers Care Drum Sealer Name Role Phone Ge Bowden MD Primary Care Provider [phone] Encounter Details Date Type Department Care Team (Latest Contact Info) Description 01/07/2020 3:18 PM EDT Hospital Encounter [facility] Referral Lab [address] [place] [phone] Encounter for therapeutic drug level monitoring Social History Tobacco Use Types Packs/Day Years Used Date Smoking Tobacco: Never Assessed [facility] Utilities Answer Date Recorded In the past 12 months has th [employer] electric, gas, oil, or water company threatened to shut off services in your home? No 04/02/2024 Overall Financial Resource Strain (CARDIA) Answe r Date Recorded How hard is it for you to pa y for the very basics like food, housing, medical care, and heating? Not very hard 04/02/2024 PHQ-2 Answer Date Recorded PHQ-2 Total Score 6 10/29/2024 [facility] [place] of Occupat ional Health - Occupational Stress [...] place to sleep or slept in a custodial (including now)? Yes 07/06/2023 [facility] IP Transportation Answer D ate Recorded [...] or making decisions? No 10/29/2024 8:18 AM EST Anitha Méndez MA documented in this encounter Plan of Treatment Upcoming Encounters Date Type Department Care Team (Late st Contact Info) Description 09/06/2025 8:15 AM EST Office Visit [facility] [place] [address] [place] [address] 2[address] [place] [phone] Angelic Alxeis, SCRATCH BRUSHER [address] [address] 06/17/2026 2:10 PM EDT Office Visit [facility] [address] [address] Damion Boss MD [address] [place] [phone] Scheduled Orders Name Type Priority Associated Diagnoses Orde r Schedule LIPID PANEL REFLEX Lab Routine Encounter for therapeutic drug level monitoring ONCE for 1 Occurrences starting 01/07/2020 until 02/11/2020 RENAL FUNCTION PANEL Lab Routine Encounter for therapeutic drug level monitoring ONCE for 1 Occurrences starting 01/07/2020 until 02/11/2020 BASIC METABOLIC PANEL Lab Routine Encounter for therapeutic drug level monitoring ONCE for 1 Occurrences starting 01/07/2020 until 02/11/2020 HEPATIC FUNCTION PANEL Lab Routine Encounter for therapeutic drug level monitoring ONCE for 1 Occurrences starting 01/07/2020 until 02/11/2020 LITHIUM LEVEL Lab Routine Encounter for therapeutic drug level monitoring ONCE for 1 Occurrences starting 01/07/2020 until 02/11/2020 documented as of this encounter Goals Goal Patient Goal Type Associated Problems Recent Progress Patient-Stated? Author Blood Pressure < 140/90 Blood Pressure 132/90(2024 9:29 AM EDT) No Xochitl Mary CCMA BMI (Calculated) < 30 General 41.7(07/10/20 1:17 PM EDT) No Xochitl Mary CCMA Maintain a healthy diet, exercise regularly and maintain an ideal body weight General No Xochitl Mary CCMA Wear dexcom for 10 days, and use clarity deny General Yes Abi Villafana RN Stay Tobacco Free Lifestyle No Xochitl Mary CCMA HEMOGLOBIN A1C < 7.0 Result Component 6.1( 1:24 PM EDT) No Xochitl Mary CCMA documented as of this encounter Visit Diagnoses Diagnosis Encounter for therapeutic drug level monitoring Encounter for therapeutic drug monitoring documented in this encounter Additional Health Concerns Infection Onset Date Last Indicated Resolved Time R/O COVID-19 10/19/2020 10/19/2020 10/19/2020 6:54 PM EST R/O Influenza 10/19/2020 10/19/2020 10/19/2020 6:5 4 PM EST R/O COVID-19 08/16/2021 08/16/2021 08/16/2021 8:10 PM EST R/O COVID-19 09/22/2021 09/22/2021 09/22/2021 9:48 PM EST R/O COVID-19 08/10/2023 08/10/2023 08/10/2023 7:33 PM EST documented as of this encounter Care Teams Drum Sealer Relationship Specialty Start Date End Date Ge Bowden MD PCP - General 07/21/10 07/28/20 documented as of this encounter
--- OUTSIDE RECORDS SUMMARY | 2025-07-10 12:15 | XMS_ITS | Encounter Summary ---
Author Organization [place] [place] [address] Care Team Providers Care Direct Support Professional Home Health Name Role Phone Xochitl Lim APRN Primary Care Provider [phone] Reason for Referral * Consultation (Routine) - Pending Review Specialty Diagnoses / Procedures Referred By Chelsey dubon Referred To Contact Nephrology Diagnoses Microalbuminuria Primary hypertension Procedures CA OFFICE/OUTPATIENT NEW MODERATE MDM 45 MINUTES Xochitl Lim APRN [address] [place] [phone] Phone: tel: fax: Janes Bowman MD [address] [place] [address] [place] [phone] Phone: tel: fax: Referral ID Status Reason Start Date Expiration Date V isits Requested Visits Authorized [id number] Pending Review 07/10/2025 07/10/2026 99 99 Reason for Visit * Reason Comments Follow-up Encounter Details Date Type Department Care Team (Late st Contact Info) Description 07/10/2025 1:15 PM EDT Office Visit [facility] [address] [phone] Xochitl Lim APRN [address] [phone] Microalbuminuria (Primary Dx); Primary hypertension; Abdominal pain, LLQ (left lower quadrant) Social History Tobacco Use Types Packs/Day Years Used Date Smoking Tobacco: Former Cigarettes 0.5 33.2 S tarted: 06/12/1992 Smokeless Tobacco: Never Alcohol Use Standard Drinks/Week Comments Not Currently 0 (1 standard drink = 0.6 oz pur e alcohol) [facility] Utilities Answer Date Recorded In the past 12 months has th e electric, gas, oil, or water company threatened to shut off services in your home? No 04/02/2024 Overall Financial Resource Strain (CARDIA) Answe r Date Recorded How hard is it for you to pa y for the very basics like food, housing, medical care, and heating? Not very hard 04/02/2024 PHQ-2 Answer Date Recorded PHQ-2 Total Score 6 10/29/2024 [facility] - Occupational Stress Questionnaire Answer Date Recorded [...] place to sleep or slept in a chcf (including now)? Yes 07/06/2023 [facility] IP Transportation Answer D ate Recorded [...] on file documented as of this encounter Last Filed Vital Signs Vital Sign Reading Time Taken Comments Blood Pressure 142/90 07/10/2025 1:17 PM EDT Pulse 70 07/10/2025 1:17 PM EDT Temperature 36.4 C (97.6 F) 07/10/2025 1:17 PM EDT Respiratory Rate - - Oxygen Saturation 98% 07/10/2025 1:17 PM EDT Inhaled Oxygen Concentration - - Weight 124.3 kg (274 lb) 07/10/2025 1:17 PM EDT Height 172.7 cm (5' 8 ) 07/10/2025 1:17 PM EDT Body Mass Index 41.66 07/10/2025 1:17 PM EDT documented in this encounter Functional Status * Is the [...] Refills Last Filled Start Date End Date dapagliflozin propanediol (FARXIGA) 5 mg Oral TabletIndications:M icroalbuminuria,Marlyn rinaldi hypertension Take 1 Tablet by mouth daily. 90 Tablet 3 07/10/2025 lisinopriL (PRINIVIL;ZESTRIL) 10 mg Oral TabletIndications:M icroalbuminuria,Marlyn rinaldi hypertension Take 1 Tablet by mouth daily. 90 Tablet 3 07/10/2025 documented in this encounter Progress Notes * Xochitl Lim APRN - 07/10/2025 1:15 PM EDT Assessment & Plan 1. Hypertension: - Blood pressure remains elevated. - Currently taking metoprolol; previously on amlodipine, discontinued post- myocardial infarction. 2. Vitamin D deficiency: - Vitamin D levels slightly below normal. - Advised daily [id number]-[id number] vitamin D supplements. 3. A1C controlled Elevated Microalbumin-discussed with Maryse rey pharmacist Add ACEI Add Farxiga Refer to Nephrology Assessment & Plan Microalbuminuria Orders: lisinopriL (PRINIVIL;ZESTRIL) 10 mg Oral Tablet; Take 1 Tablet by mouth daily. dapagliflozin propanediol (FARXIGA) 5 mg Oral Tablet; Take 1 Tablet by mouth daily. AMB REFERRAL TO NEPHROLOGY Primary hypertension Orders: lisinopriL (PRINIVIL;ZESTRIL) 10 mg Oral Tablet; Take 1 Tablet by mouth daily. dapagliflozin propanediol (FARXIGA) 5 mg Oral Tablet; Take 1 Tablet by mouth daily. AMB REFERRAL TO NEPHROLOGY Abdominal pain, LLQ (left lower quadrant) Orders: CBC WITH DIFF COMPREHENSIVE METABOLIC PANEL LIPASE LEVEL URINALYSIS URINE CULTURE (NO STAIN) No follow-ups on file. Subjective Ed Mathew is a 44 y.o. female Chief Complaint Patient presents with Follow-up History of Present Illness The patient presents for evaluation of hypertension and labs They have a history of hypertension, previously managed with amlodipine, discontinued post-myocardial infarction. Currently on metoprolol for blood pressure management. Recent labs indicate a slight decrease in vitamin D levels. Review of Systems Constitutional: Negative. HENT: Negative. Respiratory: Negative. Cardiovascular: Negative. Gastrointestinal: Negative. Genitourinary: Negative. Neurological: Negative. Objective Blood pressure (!) 142/90, pulse 70, temperature 97.6 ??F (36.4 ??C), temperature source Temporal, height 5' 8 (1.727 m), weight 274 lb (124.3 kg), last menstrual period 05/05/2025, SpO2 98%, not currently . Body mass index is 41.66 kg/m??. Physical Exam Physical Exam Constitutional: Appearance: Normal appearance. HENT: Head: Normocephalic and atraumatic. Right Ear: Tympanic membrane normal. Left Ear: Tympanic membrane normal. Nose: Nose normal. Mouth/Throat: Mouth: Mucous membranes are moist. Pharynx: Oropharynx is clear. Cardiovascular: Rate and Rhythm: Normal rate and regular rhythm. Pulses: Normal pulses. Heart sounds: Normal heart sounds. Pulmonary: Effort: Pulmonary effort is normal. Breath sounds: Normal breath sounds. Skin: General: Skin is warm. Neurological: General: No focal deficit present. Mental Status: She is alert. Results Labs - Vitamin D: Mildly decreased - CBC: Normal - Kidney function: Normal - Liver function: Normal - Thyroid function: Normal - A1c: Normal - Cholesterol: Normal - Microalbumin: High The provider educated the patient (or legal wireless sales representative) on the use of the ambient listening artificial intelligence tool, [employer]. They were informed that this AI tool processes the conversation to generate a clinical note with the expected benefit of improved accuracy while achieving an improved encounter experience for the patient and provider.?The provider explained that the medical information captured by the AI tool including, but not limited to, diagnoses and treatment plan would be protected in accordance with applicable privacy laws and that all diagnoses and treatment decisions would be made by the provider. The provider explained that the note generated will be reviewed bythe provider for accuracy to minimize potential errors.? The patient was given an opportunity to ask questions and opt out of proceeding with the use of the AI tool. After being informed of such information, the patient (or legal wireless sales representative), and each individual in attendance with the patient, verbally consented to the use of the AI tool. documented in this encounter Plan of Treatment Upcoming Encounters Date Type Department Care Team (Late st Contact Info) Description 09/06/2025 8:15 AM EST Office Visit [facility] [address] [place] [address] Angelic Alexis APRN [address] [address] 06/17/2026 2:10 PM EDT Office Visit [facility] [address] [address] Damion Boss MD [address] [place] [address] Scheduled Referrals Name Type Priority Associated Diagnoses Orde r Schedule AMB REFERRAL TO NEPHROLOGY Outpatient Referral Routine Microalbuminuria Primary hypertension Ordered: 07/10/2025 documented as of this encounter Goals Goal [...] use clarity deny General Yes Abi Villafana, RN Stay Tobacco Free Lifestyle No Xochitl Mary CCMA HEMOGLOBIN A1C < 7.0 Result Component 6.1( 5 1:24 PM EDT) No Xochitl Mary CCMA documented as of this encounter Procedures Procedure Name Priority Date/Time Associated Diagnosis Comments URINALYSIS Routine 07/10/2025 1:42 PM EDT Abdominal pain, LLQ (left lower quadrant) CBC WITH DIFF Routine 07/10/2025 1:42 PM EDT Abdominal pain, LLQ (left lower quadrant) URINE CULTURE (NO STAIN) Routine 07/10/2025 1:42 PM EDT Abdominal pain, LLQ (left lower quadrant) LIPASE LEVEL Routine 07/10/2025 1:42 PM EDT Abdominal pain, LLQ (left lower quadrant) COMPREHENSIVE METABOLIC PANEL Routine 07/10/2025 1:42 PM EDT Abdominal pain, LLQ (left lower quadrant) documented in this encounter Results * URINE CULTURE (NO STAIN) (07/10/2025 1:42 PM EDT) Pathologist [facility] Culture Multiple bacterial species isolated from urine consistent with urogenital commensal organisms. 07/12/2025 7:33 AM EDT [facility] [employer] Urine STRUCTURE OF URINARY TRACT PROPER / Unknown 07/10/2025 1:42 PM EDT 07/10/2025 1:42 PM EDT us Xochitl Lim COMBINE OPERATOR MICROBIOLOGY - GENERAL ORD ERABLES Final Result [facility] [employer] [facility] [address] [facility] , [address] [place] [phone] * (ABNORMAL) URINALYSIS (07/10/2025 1:42 PM EDT) UA Color Light Yellow 07/10/2025 7:45 PM EDT [facility] UA Appear Clear Clear 07/10/2025 7:45 PM EDT [facility] UA Glucose Negative Negative mg/dL 07/10/2025 7:45 PM EDT [facility] UA Ketones Negative Negative mg/dL 07/10/2025 7:45 PM EDT [facility] UA Blood Negative Negative 07/10/2025 7:45 PM EDT [facility] UA pH 6.0 5.0 - 8.0 pH 07/10/2025 7:45 PM EDT [facility] UA Protein 1+ (30-70 mg/dL)(A) Negative mg/dL 07/10/2025 7:45 PM EDT [facility] UA Urobilinogen Normal <=1 mg/dL 7:45 PM EDT [facility]A Bili Negative Negative 07/10/2025 7:45 PM EDT [facility] UA Nitrite Negative Negative 07/10/2025 7:45 PM EDT [facility] UA Leuk Est Negative Negative 07/10/2025 7:45 PM EDT [facility] UA Spec Grav 1.029 1.001 - 1.035 no units 07/10/2025 7:45 PM EDT [facility] Comment:Reference range holli d for random specimens only. UA WBC <1 0 - 4 /HPF 07/10/2025 7:45 PM EDT [facility] UA RBC 1 0 - 3 /HPF 07/10/2025 7:45 PM EDT [facility] UA Squam Epi 2+ /LPF 07/10/2025 7:45 PM EDT [facility] UA Mucus Trace /LPF 07/10/2025 7:45 PM EDT [facility] UA Bacteria Trace(A) Negative /HPF 07/10/2025 7:45 PM EDT [facility] Urine STRUCTURE OF URINARY TRACT PROPER / Unknown 07/10/2025 1:42 PM EDT 07/10/2025 1:42 PM EDT us Xochitl Gastright COMBINE OPERATOR URINE ORDERABLES Final Res ult [facility] [address] [facility] [facility] , [place] [address] * LIPASE LEVEL (07/10/2025 1:42 PM EDT) Lipase Lvl 39 13 - 60 U/L 07/10/2025 10:45 PM EDT [facility] Blood VENOUS BLOOD / Unknown Venipuncture / Unknown 07/10/2025 1:42 PM EDT 07/10/2025 1:42 PM EDT us Xochitl Gastright COMBINE OPERATOR CHEMISTRY ORDERABLES Final Result [facility] [address] [facility] , [place] [address] * (ABNORMAL) COMPREHENSIVE METABOLIC PANEL (07/10/2025 1:42 PM EDT) Sodium 140 136 - 145 mmol/L 07/10/2025 10:12 PM EDT [facility] Potassium 4.2 3.5 - 5.0 mmol/L 07/10/2025 10:12 PM EDT [facility] Chloride 107 98 - 107 mmol/L 07/10/2025 10:12 PM EDT [facility] Total CO2 21(L) 22 - 29 mmol/L 07/10/2025 10:12 PM EDT [facility] Anion Gap 12 7 - 16 mmol/L 07/10/2025 10:12 PM EDT [facility] Calcium 9.6 8.6 - 10.4 mg/dL 07/10/2025 10:12 PM EDT [facility] Glucose Lvl 88 70 - 99 mg/dL 07/10/2025 10:12 PM EDT [facility] BUN 12 6 - 20 mg/dL 07/10/2025 10:12 PM EDT [facility] Creatinine 0.57 0.51 - 1.30 mg/dL 07/10/2025 10:12 PM EDT [facility] Albumin 4.0 3.5 - 5.2 gm/dL 07/10/2025 10:12 PM EDT [facility] Total Protein 7.8 6.4 - 8.3 gm/dL 07/10/2025 10:12 PM EDT [facility] Bili Total 0.3 0.2 - 1.3 mg/dL 07/10/2025 10:12 PM EDT [facility] ALT 20 <=41 U/L 07/10/2025 10:12 PM EDT [facility] AST 22 <=40 U/L 07/10/2025 10:12 PM EDT [facility] Alk Phos 50 36 - 123 U/L 07/10/2025 10:12 PM EDT [facility] eGFR (CKD-EPIcr 2020) 114 >=60 mL/min/1.7 3 m2 07/10/2025 10:12 PM EDT [facility] Comment:Estimated GFR was ca lculated using the CKD-EPIcr (2020) equation refit without race. The equation is recommended by the National Kidney Foundation - [place] [employer] of Nephrology Task Force. Blood VENOUS BLOOD / Unknown Venipuncture / Unknown 07/10/2025 1:42 PM EDT 07/10/2025 1:42 PM EDT us Xochitl Gastright COMBINE OPERATOR CHEMISTRY ORDERABLES Final Result [facility] [address] [facility] , [place] [address] * CBC WITH DIFF (07/10/2025 1:42 PM EDT) WBC 6.0 3.7 - 10.3 x10(3)/mcL 07/10/2025 7:57 PM EDT [facility] RBC 4.23 3.90 - 5.20 x10(6)/mcL 07/10/2025 7:57 PM EDT [facility] Hgb 12.6 11.2 - 15.7 g/dL 07/10/2025 7:57 PM EDT [facility] Hct 38.5 34.0 - 45.0 % 07/10/2025 7:57 PM EDT [facility] MCV 91.0 80.0 - 100.0 fL 07/10/2025 7:57 PM EDT [facility] MCH 29.8 26.0 - 34.0 pg 07/10/2025 7:57 PM EDT [facility] MCHC 32.7 30.7 - 35.5 g/dL 07/10/2025 7:57 PM EDT [facility] RDW 12.8 <=14.9 % 07/10/2025 7:57 PM EDT [facility] Platelet 234 155 - 369 x10(3)/mcL 07/10/2025 7:57 PM EDT [facility] MPV 11.7 8.8 - 12.5 fL 07/10/2025 7:57 PM EDT [facility] Neut Percent 50.7 % 07/10/2025 7:57 PM EDT [facility] Comment:Neutrophils equals s egs plus bands Imm Gran% 0.7 % 07/10/2025 7:57 PM EDT [facility] Comment:Automated count of m etamyelocytes, myelocytes and promyelocytes. Lymph Percent 36.6 % 07/10/2025 7:57 PM EDT [facility] [place] Percent 7.5 % 07/10/2025 7:57 PM EDT [facility] Eos Percent 3.8 % 07/10/2025 7:57 PM EDT [facility] Baso Percent 0.7 % 07/10/2025 7:57 PM EDT [facility] Neut # 3.0 1.6 - 6.1 x10(3)/mcL 07/10/2025 7:57 PM EDT [facility] Comment:Neutrophils equals s egs plus bands IMMGRAN# 0.0 0.0 - 0.1 x10(3)/mcL 07/10/2025 7:57 PM EDT [facility] Comment:Automated count of m etamyelocytes, myelocytes and promyelocytes. An absolute IG <0.1 is reported as 0.0. Lymph # 2.2 1.2 - 3.9 x10(3)/mcL 07/10/2025 7:57 PM EDT [facility] [place] # 0.5 0.3 - 0.9 x10(3)/mcL 07/10/2025 7:57 PM EDT [facility] Eos# 0.2 0.0 - 0.5 x10(3)/mcL 07/10/2025 7:57 PM EDT [facility] Baso # 0.0 0.0 - 0.1 x10(3)/mcL 07/10/2025 7:57 PM EDT [facility] Blood VENOUS BLOOD / Unknown Venipuncture / Unknown 07/10/2025 1:42 PM EDT 07/10/2025 1:42 PM EDT us Xochitl Lim COMBINE OPERATOR HEMATOLOGY ORDERABLES [place] l Result [facility] [address] [facility] , [address] [place] [phone] documented in this encounter Visit Diagnoses Diagnosis Microalbuminuria- Primary Proteinuria Primary hypertension Unspecified essential hypertension Abdominal pain, LLQ (left lower quadrant) Abdominal pain, left lower quadrant documented in this encounter Orders Immunization/Injection Count Last Ordered Date First Ordered Date FLU VACCINE 6MO+ PRESERVATIVE FREE IM 1 [employer] SARS-COV-2 VACCINE TR IS-SUCROSE 12+ YRS 1 07/10/2025 documented in this encounter Additional Health Concerns Assessment Noted Time PHQ-9 Depression Total Score: 24 025 8:21 AM EST PHQ-2 Depression Total Score: 6 10/29/19 25 8:21 AM EST documented as of this encounter Care Teams Direct Support Professional Home Health Relationship Specialty Start Date End Date Xochitl Lim APRN [address] [place] [phone] PCP - General Nurse Practitioner 11/09/23 documented as of this encounter
--- OUTSIDE RECORDS SUMMARY | 2025-07-18 08:15 | XMS_ITS | Encounter Summary ---
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 08/01/2025 4:48 PM EST Unremarkable complete retroperitoneal, kidneys and bladder, ultrasound.- Note: Radiology results need to be interpreted within a comprehensive clinical context. If you have questions about the radiology report, please contact the office of the ordering clinician. Narrative 08/01/2025 4:48 PM EST US KIDNEYS AND BLADDER, 08/01/2025 4:39 PM CLINICAL HISTORY: R80.9-Proteinuria, yayvytqiysj-NPS-96-CM E11.29-Type 2 diabetes mellitus with other diabetic kidney complication (HCC)-ICD-10-CM R80.9-Proteinuria, gzzulrumscb-YEX-42-CM Z79.4-care home (current) use of insulin (HCC)-ICD-10-CM E11.69-Type 2 diabetes mellitus with other specified complication (HCC)-ICD-10-CM E78.5-Hyperlipidemia, zfvaaatlupc-RDR-64-CM E11.21-Type 2 diabetes mellitus with diabetic n. COMPARISON: CT 07/27/2024 PROCEDURE COMMENTS: Routine sonographic evaluation of the kidneys and bladder with data entry representative images and violent crimes detective notes sent to PACS for radiologist review. FINDINGS: RIGHT: 12.7 x 8.0 x 5.0 cm. No hydronephrosis, solid-appearing mass, or shadowing stone. LEFT: 12.2 x 7.8 x 4.7 cm. No hydronephrosis, solid-appearing mass, or shadowing stone. PELVIS: The bladder is sonographically normal. Procedure Note Israel Macario MD - 08/01/2025 US KIDNEYS AND BLADDER, 08/01/2025 4:39 PM CLINICAL HISTORY: R80.9-Proteinuria, qkmcquzyrqb-OLP-08-CM E11.29-Type 2 diabetes mellitus with other diabetic kidney complication (HCC)-ICD-10-CM R80.9-Proteinuria, ehvqcxqyidj-BRR-72-CM Z79.4-care home (current) use of insulin (HCC)-ICD-10-CM E11.69-Type 2 diabetes mellitus with other specified complication (HCC)-ICD-10-CM E78.5-Hyperlipidemia, wlrsmzikroi-IVD-37-CM E11.21-Type 2 diabetes mellitus with diabetic n. COMPARISON: CT 07/27/2024 PROCEDURE COMMENTS: Routine sonographic evaluation of the kidneys andbladder with data entry representative images and violent crimes detective notes sent to PACS forradiologist review. FINDINGS: RIGHT: 12.7 x 8.0 x 5.0 cm. No hydronephrosis, solid-appearing mass,or shadowing stone. LEFT: 12.2 x 7.8 x 4.7 cm. No hydronephrosis, solid-appearing mass, or shadowing stone. PELVIS: The bladder is sonographically normal. IMPRESSION: Unremarkable complete retroperitoneal, kidneys and bladder, ultrasound.- Note: Radiology results need to be interpreted within a comprehensiveclinical context. If you have questions about the radiology report, please contactthe office of the ordering clinician. us Carmen Montoya APRN IMG US ORDERABLES Final R esult documented in this encounter Visit Diagnoses Diagnosis Microalbuminuric diabetic nephropathy (HCC)- Primary Proteinuria, unspecified type Type 2 diabetes mellitus with microalbuminuria, with long-term current use of insulin (HCC) Hyperlipidemia associated with type 2 diabetes mellitus (HCC) Insulin long-term use (HCC) Encounter for long-term (current) use of insulin Diabetic polyneuropathy associated with type 2 diabetes mellitus (HCC) Low vitamin D level Proteinuria, unspecified type Type 2 diabetes mellitus with microalbuminuria, with long-term current use of insulin (HCC) Hyperlipidemia associated with type 2 diabetes mellitus (HCC) Microalbuminuric diabetic nephropathy (HCC) Insulin long-term use (HCC) Encounter for long-term (current) use of insulin Diabetic polyneuropathy associated with type 2 diabetes mellitus (HCC) documented in this encounter Additional Health Concerns Assessment Noted Time PHQ-9 Depression Total Score: 24 025 8:21 AM EST PHQ-2 Depression Total Score: 6 10/29/19 25 8:21 AM EST documented as of this encounter Care Teams Mainframe Programmer Analyst Relationship Specialty Start Date End Date Xochitl Lim APRN [address] [facility] [place] [address] PCP - General Nurse Practitioner 11/09/23 documented as of this encounter
--- OUTSIDE RECORDS SUMMARY | 2025-08-01 16:15 | XMS_ITS | Encounter Summary ---
Author Organization [place] [address] Care Team Providers Care Manager Grant Name Role Phone Xochitl Lim APRN Primary Care Provider [phone] Reason for Referral * Ultrasound (Routine) - Closed Specialty Diagnoses [...] US RENAL AND BLADDER Carmen Montoya APRN [address] [place] [id number] Phone: tel: fax: Referral ID Status Reason Start Date Expiration Date Visits Re quested Visits Authorized [id number] Closed 07/18/2025 07/18/2026 1 1 Reason for Visit * Ultrasound (Routine) - Closed Specialty Diagnoses [...] RENAL AND BLADDER Carmen Montoya APRN [address] [place] [address] Phone: tel: fax: Referral ID Status Reason Start Date Expiration Date Visits Re quested Visits Authorized [id number] Closed 07/18/2025 07/18/2026 1 1 Encounter Details Date Type Department Care Team (Latest Contact Info) Description 08/01/2025 4:15 PM EST - 08/01/2025 11:59 PM EST Hospital Encounter [facility] Ultrasound [address] [place] [address] Carmen Montoya APRN [address] [facility] [address] [place] [address] Proteinuria, unspecified type; Type 2 diabetes mellitus with microalbuminuria, with long-term current use of insulin (HCC); Hyperlipidemia associated with type 2 diabetes mellitus (HCC); Microalbuminuric diabetic nephropathy (HCC); Insulin long-term use (HCC); Diabetic polyneuropathy associated with type 2 diabetes mellitus (HCC) Discharge Disposition: Home or Self Care Social History Tobacco Use Types Packs/Day Years Used Date Smoking Tobacco: Former Cigarettes 0.5 33.2 S tarted: 06/12/1992 Smokeless Tobacco: Never Alcohol Use Standard Drinks/Week Comments Not Currently 0 (1 standard drink = 0.6 oz pur e alcohol) [facility] Utilities Answer Date Recorded In the past 12 months has Vaughn Burton, gas, oil, or water [employer] threatened to shut off services in your home? No 04/02/2024 Overall Financial Resource Strain (CARDIA) Answe r Date Recorded How hard is it for you to pa y for the very basics like food, housing, medical care, and heating? Not very hard 04/02/2024 PHQ-2 Answer Date Recorded PHQ-2 Total Score 6 10/29/2024 [facility] - Occupational Stress [...] place to sleep or slept in a fdc (including now)? Yes 07/06/2023 [facility] IP Transportation Answer D ate Recorded [...] Anitha Padilla MA documented in this encounter Medications at Time of Discharge acetaminophen (TYLENOL) 650 mg Oral Tablet Sustained Release Take 650 mg by mouth every 8 hours as needed for Pain. albuterol (PROVENTIL HFA;VENTOLIN HFA) 90 mcg/actuation Inhl HFA Aerosol InhalerIndications:CO PD, severity to be determined (HCC),History of asthma Inhale 2 Puffs into the lungs every 4 hours as needed for Wheezing or Shortness of Breath. 90 g 1 2 amLODIPine (NORVASC) 5 mg Oral TabletIndications:Ess ential hypertension Take 1 Tablet by mouth daily. 90 Tablet 3 5 aspirin 81 mg Oral Tablet, ChewableIndications:E stablishing care with new doctor, encounter for,Family history of cardiovascular disease,Essential hypertension,Diabetic polyneuropathy associated with type 2 diabetes mellitus ([facility]),Cigarette nicotine dependence with nicotine-induced disorder Take 1 tablet by mouth daily. 30 Tablet 11 3 BD YUE 2ND GEN PEN NEEDLE 32 gauge x Misc NeedleIndications:Hyp erlipidemia associated with type 2 diabetes mellitus (HCC),Type 2 diabetes mellitus with microalbuminuria, with long-term current use of insulin ([facility]),Microalbuminuri c diabetic nephropathy ([facility]),Type 2 diabetes mellitus with hyperglycemia, with long-term current use of insulin ([facility]),Establishing care with new doctor, encounter for,Insulin long-term use ([facility]) Use with insulin 3 times daily 100 Each 4 Blood-Glucose Meter,Continuous (DEXCOM G6 COMPUTER APPLICATION DEVELOPER) [facility] MiscIndications:Type 2 diabetes mellitus with hyperglycemia, with long-term current use of insulin ([facility]) 1 Device by [facility].(Non-Drug; Combo Route) route continuous. 1 device to check blood sugars daily continuously 1 Each 3 Blood-Glucose Sensor (DEXCOM G6 SENSOR) [facility] Device 1 Each by [facility].(Non-Drug; Combo Route) route continuous. 1 sensor every 10 days 3 Each 12 3 Blood-Glucose Transmitter (DEXCOM G6 TRANSMITTER) [facility] DeviceIndications:Typ e 2 diabetes mellitus with hyperglycemia, with long-term current use of insulin ([facility]) 1 Each by [facility].(Non-Drug; Combo Route) route continuous. 1 transmitter every 3 months 1 Each 4 3 budesonide-formoteroL (BREYNA) 160-4.5 mcg/actuation Inhl HFA Aerosol InhalerIndications:Hi story of asthma,COPD, severity to be determined ([facility]) Inhale 2 Puffs into the lungs 2 times daily. 30.6 g 1 5 clopidogreL (PLAVIX) 75 mg Oral TabletIndications:NST NEVAEH (non-ST elevated myocardial infarction) ([facility]) Take 1 Tablet by mouth daily. 30 Tablet 3 5 cyclobenzaprine (FLEXERIL) 5 mg Oral Tablet Take 1 Tablet by mouth 3 times daily as needed for Muscle Spasms for 5 days. 15 Tablet 5 dapagliflozin propanediol (FARXIGA) 5 mg Oral TabletIndications:Jorge roalbuminuria,Primary hypertension Take 1 Tablet by mouth daily. 90 Tablet 3 5 EPINEPHrine (EPIPEN) 0.3 mg/0.3 mL Inj Auto-Injector Inject 0.3 mL into the muscle as needed for Anaphylaxis. 2 Each 3 ibuprofen (ADVIL;MOTRIN) 800 mg Oral Tablet Take 1 Tablet by mouth 3 times daily as needed for Pain for 7 days. 20 Tablet 5 Lancets (ACCU-CHEK FASTCLIX LANCET DRUM) [facility] USE TO TEST BLOOD SUGARS FIVE TIMES DAILY. 300 Each 11 2 lidocaine (LIDODERM) 5 % Top Adhesive Patch, Medicated Place 1 Patch onto the skin daily. Apply for 12 hours, remove for 12 hours, then apply new patch 30 Patch 5 lisinopriL (PRINIVIL;ZESTRIL) 10 mg Oral TabletIndications:Jorge roalbuminuria,Primary hypertension Take 1 Tablet by mouth daily. 90 Tablet 3 5 Melatonin 3 mg Oral Tablet Take 3 mg by mouth nightly as needed for Sleep. metFORMIN (GLUCOPHAGE) 1,000 mg Oral TabletIndications:Hyp erlipidemia associated with type 2 diabetes mellitus ([facility]),Type 2 diabetes mellitus with microalbuminuria, with long-term current use of insulin ([facility]),Microalbuminuri c diabetic nephropathy (HCC),Type 2 diabetes mellitus with hyperglycemia, with long-term current use of insulin ([facility]),Diabetic polyneuropathy associated with type 2 diabetes mellitus ([facility]) Take 1 Tablet by mouth 2 times daily. 200 Tablet 1 5 methylPREDNISolone (MEDROL DOSPACK) 4 mg Oral Tablets, Dose Pack See package instructions 21 Tablet 5 metoprolol succinate (TOPROL-XL) 50 mg Oral Tablet Sustained Release 24 hrIndications:NSTEMI (non-ST elevated myocardial infarction) ([facility]) Take 1 Tablet by mouth daily. 90 Tablet 3 5 montelukast (SINGULAIR) 10 mg Oral TabletIndications:Est ablishing care with new doctor, encounter for,History of asthma Take 1 Tablet by mouth every evening. 90 Tablet 3 nalOXone (NARCAN) 4 mg/actuation Nasl [place], Non-Aerosol [place] the contents of one device (0.1mL) into one nostril upon signs of opioid overdose. Call 911. May repeat dose in other nostril if no response within 2-3 minutes. 2 Each 04/02/2024 1:43 PM EDT 4 rOPINIRole (REQUIP XL) 4 mg Oral Tablet Sustained Release 24 hrIndications:Restles s legs syndrome (RLS) TAKE 3 TABLETS BY MOUTH ONCE NIGHTLY 90 Tablet 3 5 rosuvastatin (CRESTOR) 40 mg Oral TabletIndications:NST NEVAEH (non-ST elevated myocardial infarction) ([facility]) Take 1 Tablet by mouth once nightly. 100 Tablet 1 5 valACYclovir (VALTREX) 1 gram Oral TabletIndications:Rec urrent genital herpes Take 1 Tablet by mouth every 8 hours. Only as needed for breakouts 21 Tablet 2 2 baclofen (LIORESAL) 10 mg Oral Tablet Take 1 Tablet by mouth 2 times daily as needed for Muscle spasms. 60 Tablet 1 5 08/30/20 25 pantoprazole (PROTONIX) 40 mg Oral Tablet, Delayed Release (E.C.) Take 1 Tablet by mouth twice daily. 180 Tablet 1 5 08/30/20 25 documented as of this encounter Discharge Disposition Disposition Code Departure Means Destination Home or Self Care documented in this encounter Plan of Treatment Upcoming Encounters Date Type Department Care Team (Late st Contact Info) Description 09/06/2025 8:15 AM EST Office Visit [facility] [address] [place] [id number] Angelic Alexis, RIYA [address] [place], [place] [id number] 06/17/2026 2:10 PM EDT Office Visit [facility] [address] [id number] Damion Boss MD [address] [place] [address] documented as of this encounter Goals Goal [...] Name Priority Date/Time Associated Diagnosis Comments US RENAL AND BLADDER Routine 08/01/2025 4:39 PM EST Proteinuria, unspecified type Type 2 diabetes mellitus with microalbuminuria, with long-term current use of insulin (HCC) Hyperlipidemia associated with type 2 diabetes mellitus (HCC) Microalbuminuric diabetic nephropathy (HCC) Insulin long-term use (HCC) Diabetic polyneuropathy associated with type 2 diabetes mellitus (HCC) documented in this encounter Results * US RENAL AND [...] BLADDER, 08/01/2025 4:39 PM CLINICAL HISTORY: R80.9-Proteinuria, kapxkslmxgh-BEY-24-CM E11.29-Type 2 diabetes mellitus with other diabetic kidney complication (HCC)-ICD-10-CM R80.9-Proteinuria, pydopzqqnqz-MNM-78-CM Z79.4-long term care phlebotomist (current) use of insulin (HCC)-ICD-10-CM E11.69-Type 2 diabetes mellitus with other specified complication (HCC)-ICD-10-CM E78.5-Hyperlipidemia, itmnixyqrud-HLM-52-CM E11.21-Type 2 diabetes mellitus with diabetic n. COMPARISON: CT 07/27/2024 PROCEDURE COMMENTS: Routine sonographic evaluation of the kidneys and bladder with financial foundations representative images and glue spreading machine operator notes sent to PACS for radiologist review. FINDINGS: RIGHT: 12.7 x 8.0 x 5.0 cm. No hydronephrosis, solid-appearing mass, or shadowing stone. LEFT: 12.2 x 7.8 x 4.7 cm. No hydronephrosis, solid-appearing mass, or shadowing stone. PELVIS: The bladder is sonographically normal. Procedure Note Israel Macario MD - 08/01/2025 US KIDNEYS AND BLADDER, 08/01/2025 4:39 PM CLINICAL HISTORY: R80.9-Proteinuria, prgwurrmxov-OHF-16-CM E11.29-Type 2 diabetes mellitus with other diabetic kidney complication (HCC)-ICD-10-CM R80.9-Proteinuria, rkahkpxwsfs-WTF-18-CM Z79.4-long term care phlebotomist (current) use of insulin (HCC)-ICD-10-CM E11.69-Type 2 diabetes mellitus with other specified complication (HCC)-ICD-10-CM E78.5-Hyperlipidemia, vxefbsrccfc-EYS-74-CM E11.21-Type 2 diabetes mellitus with diabetic n. COMPARISON: CT 07/27/2024 PROCEDURE COMMENTS: Routine sonographic evaluation of the kidneys andbladder with financial foundations representative images and glue spreading machine operator notes sent to PACS forradiologist review. FINDINGS: [...] please contactthe office of the ordering clinician. Carmen Montoya APRN IMG US ORDERABLES Final R esult documented in this encounter Visit Diagnoses Diagnosis Proteinuria, unspecified type Type 2 diabetes mellitus [...] documented as of this encounter Care Teams Manager Grant Relationship Specialty Start Date End Date CarinaXochitlRIYA [address] [place] [id number] PCP - General Nurse Practitioner 11/09/23 documented as of this encounter
[2025-09-04 11:51] VITALS: BP 162/99; PULSE 84; RESP 18; TEMP 36.6; O2SAT 100; BMI 43.5
--- NOTE | 2025-09-04 12:00 | ED_ITS ---
<Statement entered by Jerrell Murillo MD - 09/04/25 13:38> Jerrell Murillo MD: I was consulted by the EMERY, and we discussed the complexity of the problems being addressed. I approve the treatment and management plan for this patient's care in the emergency department, thus performing a substantive portion of the medical decision making. Discharge Plan Disposition Patient Disposition: Home, Self-Care Condition: Good Prescriptions Prescriptions: New ondansetron 4 mg tablet,disintegrating 4 mg PO Q6H PRN (Reason: nausea and vomiting) Qty: 12 0RF cyclobenzaprine 10 mg tablet 10 mg PO TID PRN (Reason: muscle spasm) Qty: 15 0RF lidocaine [Lidoderm] 5 % adhesive patch,medicated 1 patch topical Q24H Qty: 3 0RF Rx Instructions: leave on most painful area for up to 12 hrs No Action amitriptyline 25 mg tablet 25 - 75 mg PO HS Patient Comments: TAKE 1 TO 3 TABLETS BY MOUTH NIGHTLY NEEDED FOR SLEEP. aspirin 81 mg tablet,chewable 81 mg PO DAILY ergocalciferol (vitamin D2) 1,250 mcg (50,000 unit) capsule 1,250 mcg PO WEEKLY gabapentin 300 mg capsule 300 mg PO TID Qty: 30 0RF cyclobenzaprine 5 mg tablet 10 mg PO TID PRN (Reason: muscle spasm) Qty: 30 0RF ibuprofen 800 mg tablet 800 mg PO TID PRN (Reason: pain) 7 Days Qty: 20 0RF cyclobenzaprine 5 mg tablet 5 mg PO TID PRN (Reason: muscle spasm) 5 Days Qty: 15 0RF quetiapine 25 mg tablet 25 - 50 mg PO HSP PRN (Reason: Sleep) Patient Comments: TAKE 1 TO 2 TABLETS BY MOUTH NIGHTLY NEEDED. carvedilol 12.5 mg tablet 12.5 mg PO BID Patient Comments: TAKE 1 TABLET BY MOUTH 2 TIMES DAILY. sertraline 100 mg tablet 100 mg PO DAILY Patient Comments: TAKE 1 TABLET BY MOUTH DAILY. omeprazole 40 mg capsule,delayed release(DR/EC) 40 mg PO DAILY Patient Comments: TAKE 1 CAPSULE BY MOUTH EVERY 24 HOURS ropinirole 2 mg tablet 4 mg PO HS Patient Comments: TAKE 2 TABLETS BY MOUTH NIGHTLY. metformin 1,000 mg tablet 1,000 mg PO BID Patient Comments: TAKE 1 TABLET BY MOUTH 2 TIMES DAILY. montelukast 10 mg tablet 10 mg PO PM Patient Comments: TAKE ONE TABLET BY MOUTH EVERY EVENING lamotrigine 100 mg tablet 100 mg PO DAILY Patient Comments: TAKE 1 TABLET BY MOUTH DAILY. nabumetone 500 mg tablet 500 mg PO DAILY Patient Comments: TAKE 1 TABLET BY MOUTH DAILY. rosuvastatin 20 mg tablet 20 mg PO HS Patient Comments: TAKE 1 TABLET BY MOUTH NIGHTLY. budesonide-formoterol [Symbicort] 160-4.5 mcg/actuation HFA aerosol inhaler 2 puff INHALATION BID Patient Comments: INHALE 2 PUFFS INTO THE LUNGS 2 TIMES DAILY. lidocaine [Lidoderm] 5 % adhesive patch,medicated 1 patch topical DAILY Qty: 15 0RF Rx Instructions: leave on most painful area for up to 12 hrs ketorolac 10 mg tablet 10 mg PO Q8H PRN (Reason: pain) 1 Days Qty: 14 0RF prednisone 50 mg tablet 50 mg PO DAILY 5 Days Qty: 5 0RF methocarbamol 750 mg tablet 750 mg PO Q6H PRN (Reason: muscle spasm) Qty: 30 0RF ondansetron 4 mg tablet,disintegrating 4 mg PO Q8H PRN (Reason: nausea and vomiting) 4 Days Qty: 12 0RF methocarbamol 750 mg tablet 750 mg PO QID PRN (Reason: muscle spasm) Qty: 30 0RF Referrals Follow up/Referrals: Xochitl Lim APRN [Primary Care Provider, Medical] - See instructions Activity Restrictions/Add. Instructions Additional Instructions/Restrictions: You were evaluated on an emergency basis. It is very important that you follow- up with your primary care provider and any specialist who we discussed within the next 2 days in order to better assess your health more comprehensively. For example, incidental findings on imaging or laboratory results that were performed today may be discovered, which do not require immediate medical care, but may impact your health in the future. If your symptoms worsen or persist, please return to the emergency department immediately for reassessment. Take all medications as prescribed. In queue for allowing me to participate in your health care, and I hope you feel better soon. Clinical Impressions Clinical Impression: Low back pain Stand Alone Forms Stand Alone Forms: Work/School Release Instructions Patient Instructions: DI for Low Back Pain Print Language Print Language: Hong Konger Discharge ED Provider: Karsner,Jerrell General Adult HPI General Chief complaint: Back Pain/Injury Stated complaint: nausea, lower back pain Time Seen by Provider: 09/04/25 12:00 Mode of Arrival: Ambulatory Source of Information: Patient Description of Symptoms (Recalled from ER Triage Doc. by RN): pt complains of lower back pain x3 weeks. has a hx of back pain. also said she might have a UTI History of Present Illness HPI narrative: 44-year-old female with history of chronic low back pain presents the emergency department complaints of back pain for the past 3 weeks. She denies any new injury to the area. She also reports that she has had nausea for the past 3 days. She denies vomiting, diarrhea, fevers, abdominal pain. She also denies any urinary symptoms. Related Data Home Medications ?Medication ?Instructions ?Recorded ?Confirmed budesonide-formoterol HFA 160 2 puff inhalation BID As thma 07/10/22 07/15/22 mcg-4.5 mcg/actuation aerosol inhaler (Symbicort) carvedilol 12.5 mg tablet 12.5 mg PO BID Hypertension 07/10/22 07/15/22 lamotrigine 100 mg tablet 100 mg PO DAILY bipolar 06/2007/15/22 metformin 1,000 mg tablet 1,000 mg PO BID Diabetes 07/15/22 montelukast 10 mg tablet 10 mg PO PM allergies 07/15/22 nabumetone 500 mg tablet 500 mg PO DAILY Pain 2 07/15/22 omeprazole 40 mg capsule,delayed 40 mg PO DAILY GERD 1 07/15/22 release quetiapine 25 mg tablet 25 - 50 mg PO HSP PRN Sleep 07/10/22 07/15/22 ropinirole 2 mg tablet 4 mg PO HS restless leg synd jerome 07/10/22 07/15/22 rosuvastatin 20 mg tablet 20 mg PO HS Cholesterol 06/2007/15/22 sertraline 100 mg tablet 100 mg PO DAILY Depression 1 07/15/22 amitriptyline 25 mg tablet 25 - 75 mg PO HS SLEEP 06/2007/16/22 aspirin 81 mg chewable tablet 81 mg PO DAILY HEART HEA LTH 07/16/22 07/16/22 ergocalciferol (vitamin D2) 1,250 1,250 mcg PO WEEKLY Supplement 07/16/22 07/16/22 mcg (50,000 unit) capsule Previous Rx's ?Medication ?Instructions ?Recorded ketorolac 10 mg tablet 10 mg PO Q8H PRN pain 1 day #14 01/12/24 tabs lidocaine 5 % topical patch 1 patch topical DAILY #15 ea 01/12/24 (Lidoderm) cyclobenzaprine 5 mg tablet 10 mg (2 x 5 mg) PO TID WI N muscle 02/16/24 spasm #30 tabs gabapentin 300 mg capsule 300 mg PO TID #30 caps 02/15 methocarbamol 750 mg tablet 750 mg PO Q6H PRN muscle s pasm #30 02/20/24 tabs prednisone 50 mg tablet 50 mg PO DAILY 5 days #5 tab s 02/20/24 ondansetron 4 mg disintegrating 4 mg PO Q8H PRN nausea and 12/13/24 tablet vomiting 4 days #12 tabs cyclobenzaprine 5 mg tablet 5 mg PO TID PRN muscle spa sm 5 01/22/25 days #15 tabs ibuprofen 800 mg tablet 800 mg PO TID PRN pain 7 day s #20 01/22/25 tabs methocarbamol 750 mg tablet 750 mg PO QID PRN muscle s pasm #30 05/20/25 tabs cyclobenzaprine 10 mg tablet 10 mg PO TID PRN muscle s pasm #15 09/04/25 tabs lidocaine 5 % topical patch 1 patch topical Q24H #3 ea 09/04/25 (Lidoderm) ondansetron 4 mg disintegrating 4 mg PO Q6H PRN nausea and 09/04/25 tablet vomiting #12 tabs Allergies Allergy/AdvReac Type Severity Reaction Status Date / Time latex Allergy Other Verified 01/22/25 09:08 Penicillins Allergy Unknown Verified 01/22/25 09:08 allergy reaction Sulfa (Sulfonamide Allergy Unknown Verified 01/22/25 09:08 Antibiotics) allergy reaction PFSH [facility] Disclaimer: The information contained in this section may have been updated after the patient was seen, as this information can be updated by other users. Medical History Diabetes mellitus, type 2 Surgical History S/P carpal tunnel release Family History Other Family history of cancer Social History Smoking Status: Current every day smoker second hand exposure: No alcohol intake: never substance use type: methamphetamine current occupational status: other Travel in the last 8 weeks?: None household members: other housing: apartment Have you lived/traveled outside US in past 30 days?: No Contact w/someone who lives/traveled outside US past 30 days?: No Exposure to someone with infectious disease in past 14 days?: No Do you have a fever (greater than 100.4 F or 38 C)?: No Have you tested positive for COVID-19?: No Exposed to someone with COVID-19 in past 14 days?: No Do you have a sore throat?: No Do you have a cough?: No Do you have any weakness?: No Do you have any diarrhea?: No Are you experiencing any unusual bleeding?: No Do you have any muscle aches/pain?: Yes Do you have any abdominal pain?: No Are you experiencing loss of taste or smell?: No Other Medical History Have you received the Flu Vaccine for this season: No Have you received the Pneumonia Vaccine: No ROS Obtained: Yes other Gastrointestinal Gastrointestingal: Reports nausea Musculoskeletal Musculoskeletal: Reports back pain Physical Exam Narrative Physical exam: General: Awake, aware, in no acute distress HEENT: Normocephalic, no evidence of trauma CV: RRR, no murmurs, rubs, or gallops Pulm: CTA bilaterally with no rhonchi, rales, wheezes ABD: Nontender, no swelling, guarding, or rebound tenderness. Patient reports tenderness on palpation of bilateral CVA Psych, appropriate mood and affect Musculoskeletal: Sensations intact with 2+ pulses in all extremities. Patient with 5 out of 5 strength in all extremities as well. No vertebral tenderness present. General General appearance: alert Respiratory Respiratory exam: Present normal lung sounds bilaterally Cardiovascular Cardiovascular exam: Present regular rate Neurological Exam Neurological exam: Present alert Medical Decision Making Medical Records Screening: Per USPSTF and CDC recommendations, given the prevalence of disease in our region, it is our hospital?s policy to screen for HIV and viral Hepatitis for all patients aged 18 and over and those with ongoing risk factors. Devner Inquiry Pt receiving controlled substance: No Vital Signs: 09/04/25 11:51 Temperature 98 F Temperature Source Oral Pulse Rate [Right] 84 Respiratory Rate 18 Blood Pressure [Right Arm] 162/99 H Blood Pressure Mean [Right Arm] 120 02 Sat by Pulse Oximetry 100 Oxygen Delivery Method Room Air Lab Data Lab Results 09/04/25 11:50: Urine Color Yellow, Urine Appearance Clear, Urine pH 6.0, Ur Specific [place] 1.020, Urine Protein Negative, Urine Glucose (UA) Negative, Urine Ketones Negative, Urine Blood Negative, Urine Nitrate Negative, Urine Bilirubin Negative, Urine Urobilinogen 0.2, Ur Leukocyte Esterase Negative, Urine RBC None, Urine WBC None, Ur Squamous Epith Cells Occasional, Urine Bacteria None, Urine HCG, Qual Negative 09/04/25 12:17: WBC 4.9, RBC 4.39, Hgb 13.2, Hct 39.8, MCV 90.7, MCH 30.1, MCHC 33.2, RDW 13.3, Plt Count 180, MPV 10.5 H, Neut % (Auto) 52.4, Lymph % (Auto) 34.4, [place] % (Auto) 10.2 H, Eos % (Auto) 2.0, Baso % (Auto) 0.4, Neut # (Auto) 2.6, Lymph # (Auto) 1.7, [place] # (Auto) 0.5, Eos # (Auto) 0.1, Baso # (Auto) 0.0, Sodium 137, Potassium 4.4, Chloride 107, Carbon Dioxide 26, Anion Gap 8.4, BUN 16, Creatinine 0.70, Estimated Creat Clear 97, Estimated GFR 91, Est GFR ( Amer) 111, Glucose 104 H, Calcium 8.8, Total Bilirubin 0.4, AST 32, ALT 21, Alkaline Phosphatase 57, Total Protein 8.2, Albumin 4.7, Globulin 3.5 H, Albumin/Globulin Ratio 1.3, Lipase 109 09/04/25 12:17 09/04/25 12:17 Orders (Tests/Meds): ED MEDICATIONS Discontinued Medications Generic Name Dose Route Start Last Admin Trade Name Freq PRN Reason Stop Dose Admin Ketorolac Tromethamine 15 mg 09/04/25 12:11 09/04/25 12:23 Ketorolac 15mg/Ml Vial IV 09/04/25 12:12 15 mg ONCE ONE Administration Ondansetron HCl 4 mg 09/04/25 12:11 09/04/25 12:23 Ondansetron 4mg/2ml Vial IV 09/04/25 12:12 4 mg ONCE ONE Administration Orphenadrine Citrate 60 mg 09/04/25 12:11 09/04/25 12:23 Orphenadrine Citrate 60mg/2ml Vial IV 09/04/25 12:12 60 mg ONCE ONE Administration ORDERS Category Date Time Status CBC w/Auto Diff [Complete Blood Count Auto Diff] Stat Lab 09/04/25 12:17 Completed CMP [Comprehensive Metabolic Panel] Stat Lab 09/04/25 12:17 Completed Lipase Stat Lab 09/04/25 12:17 Completed Urinalysis and Microscopic Stat Lab 09/04/25 11:50 Completed Urine , HCG Qual. Stat Lab 09/04/25 11:50 Completed Medical Decision Narrative: Initial impression of presenting illness: 44-year-old female presents emergency department with complaints of low back pain for the past 3 weeks. She denies any injury to the area. She reports she has a history of chronic back pain. She states that she takes baclofen daily. Patient also reports nausea for the past 3 days. She denies fever, vomiting, diarrhea, abdominal pain, urinary symptoms. Differential diagnosis includes but is not limited to: Musculoskeletal strain, degenerative disc disease, pyelonephritis, herniated disc, urinary tract infection, viral illness Patient arrives hemodynamically stable, afebrile, without respiratory distress with vital signs interpreted by myself. Initial physical exam reveals tenderness on palpation of bilateral CVA. No vertebral tenderness present. Sensations intact with 2+ pulses and 5 out of 5 strength in all extremities. Patient ambulated with steady gait. Rest of exam is unremarkable Initial diagnostic plan: Laboratory studies including urinalysis. Norflex and Toradol for pain control Results from initial plan were reviewed and interpreted by myself, pertinent positives include: Laboratory studies including urinalysis and nonactionable. Interventions in the ED: Patient was given Zofran for nausea as well as Toradol and Norflex for pain control Patient was made aware of the results and the findings, upon reevaluation patient has remained stable throughout stay, symptoms have improved. Upon reevaluation patient appears to be resting more comfortably in bed. She has not any episodes of vomiting during her ER stay. Disposition: Reviewed findings of today's workup with patient informed no acute abnormalities were noted. Advised patient that we will treat for musculoskeletal strain with [id number] anti-inflammatories. Advised her that we will change her muscle relaxer from baclofen to Flexeril as well as lidocaine patches to help with pain control. Will also give patient a prescription for Zofran to help with her nausea. Instructed her to return immediately to the emergency department with any new or worsening symptoms including saddle anesthesias or bowel or bladder incontinence patient is agreeable to plan of care. Patient made aware of findings and had a detailed discussion with symptomatic care and return precautions, patient voiced understanding. Critical Care Critical Care Time Critical Care Time: No
[2025-09-04 12:16] LABS: Microscopic, Urine URINE MICROSCOPIC (MICROSCOPIC)
[2025-09-04 12:17] LABS: Bilirubin,Urine Negative (Negative); Color,Urine YELLOW (Yellow); Glucose,Urine (UA) Negative (Negative); Ketones,Urine Negative (Negative); Leukocyte Esterase,Urine Negative (Negative); PH,Urine 6.0 (5.0-8.5); Protein,Urine Negative (Negative); Specific Gravity, Urine 1.020 (1.005-1.030); Urobilinogen,Urine 0.2 EU/dl (0.2)
[2025-09-04 12:19] LABS: Urine Pregnancy, HCG Qual. Negative (Negative)
[2025-09-04] MEDS: KETOROLAC 15MG/ML VIAL 15 MG IV (12:23)
[2025-09-04] MEDS: ORPHENADRINE CITRATE 60MG/2ML VIAL 60 MG IV (12:23)
[2025-09-04] MEDS: ONDANSETRON 4MG/2ML VIAL 4 MG IV (12:23)
[2025-09-04 12:31] LABS: Hematocrit 39.8 % (37.0-47.0); Hemoglobin 13.2 g/dL (12.2-16.2); Immature Granulocytes % 0.6 %; Mean Corpuscular HGB Conc 33.2 g/dL (31.8-35.4); Mean Corpuscular Hemoglobin 30.1 pg (27.0-31.2); Mean Corpuscular Volume 90.7 fl (81-99); Nucleated Red Blood Cells % 0 %; Platelet Count 180 K/mm3 (142-424); Red Blood Count 4.39 M/mm3 (4.20-5.40); Red Cell Distribution Width-SD 44.1 fL; White Blood Count 4.9 K/mm3 (4.8-10.8)
[2025-09-04 12:33] LABS: Albumin Level 4.7 g/dl (3.5-5.0); Chloride 107 mmol/L (98-107); Potassium 4.4 mmoL/L (3.5-5.1); Sodium 137 mmol/L (136-145)
[2025-09-04 12:35] LABS: Alanine Aminotransferase 21 U/L (12-78); Aspartate Amino Transferase 32 U/L (14-36); Blood Urea Nitrogen 16 mg/dl (7-17); Creatinine Clearance Estimated 97 mL/min (50-200); Creatinine,Serum 0.70 mg/dl (0.52-1.04); Estimated Glomerular Filt Rate 91 ml/min (>60); GFR (African American) 111 ML/MIN (>60)
[2025-09-04 12:35] LABS: Squamous Epithelial Cell,Urine Occasional #/hpf (0-5)
[2025-09-04 12:36] LABS: Albumin/Globulin Ratio 1.3 (1.1-1.8); Alkaline Phosphatase 57 U/L (38-126); Anion Gap 8.4 mEq/L (5-15); Bilirubin,Total 0.4 mg/dl (0.2-1.3); Calcium 8.8 mg/dl (8.4-10.2); Carbon Dioxide 26 mmol/L (22.0-30.0); Globulin 3.5 g/dL (1.3-3.2); Glucose 104 mg/dl (74-100); Lipase 109 U/L (23-300); Total Protein,Serum 8.2 g/dl (6.3-8.2)
--- OUTSIDE RECORDS SUMMARY | 2025-09-04 13:17 | XMS_ITS | Encounter Summary ---
Author Organization [place] [address] Care Team Providers Care Dairy Powder Mixer Operator Name Role Phone Xochitl Lim APRN Primary Care Provider [phone]- [phone] Reason for Visit * Reason Onset Date Comments Paperwork/forms 07/24/2025 Patient Question 07/24/2025 Encounter Details Date Type Department Care Team (Late st Contact Info) Description 07/24/2025 Telephone [facility] Sleep Medicine [facility] [address] [phone] Jacquelyn Amaya MA Paperwork/forms; Patient Question Social History Tobacco Use Types Packs/Day Years Used Date Smoking Tobacco: Former Cigarettes 0.5 33.2 S tarted: 06/12/1992 Smokeless Tobacco: Never Alcohol Use Standard Drinks/Week Comments Not Currently 0 (1 standard drink = 0.6 oz pur e alcohol) [facility] Utilities Answer Date Recorded In the past 12 months has [employer], gas, oil, or water [employer] threatened to shut off services in your home? No 04/02/2024 Overall Financial Resource Strain (CARDIA) Answe r Date Recorded How hard is it for you to pa y for the very basics like food, housing, medical care, and heating? Not very hard 04/02/2024 PHQ-2 Answer Date Recorded PHQ-2 Total Score 6 10/29/2024 [facility] [place] of Occupat ional Health - Occupational Stress [...] place to sleep or slept in a usp (including now)? Yes 07/06/2023 [facility] IP Transportation Answer D ate [...] Anitha Padilla MA documented in this encounter Miscellaneous Notes * Telephone Encounter - Lori Cobos MA - 07/24/2025 10:57 AM EST Resent order to Patient [facility]. LVM to let pt know this. * Telephone Encounter - Jacquelyn Amaya MA - 07/24/2025 10:41 AM EST Pt called and said that Pt Aids said they never received her order Please send and let pt know so she can f/ u on this documented in this encounter Plan of Treatment Upcoming Encounters Date Type Department Care Team (Late st Contact Info) Description 09/06/2025 8:15 AM EST Office Visit [facility] Sleep Medicine [address] [phone] Angelic Alexis, [employer] ENG [address] [place] [address] 06/17/2026 2:10 PM EDT Office Visit [facility] [place] [address] [facility] [place] [address] Damion Boss MD [address] [facility] [place] [address] documented as of this encounter Goals Goal [...] documented as of this encounter Care Teams Dairy Powder Mixer Operator Relationship Specialty Start Date End Date Xochitl Lim APRN [address] [place] [address] PCP - General Nurse Practitioner 11/09/23 documented as of this encounter
--- OUTSIDE RECORDS SUMMARY | 2025-09-04 13:17 | XMS_ITS | Encounter Summary ---
Author Organization [place] [address] Care Team Providers Care Inspector Raw Quartz Name Role Phone Xochitl Lim APRN Primary Care Provider [phone]- [phone] Reason for Visit * Reason Comments Medication Refill Encounter Details Date Type Department Care Team (Late st Contact Info) Description 07/11/2025 Refill [facility] [address] [place] [phone] Xochitl Lim APRN [address] [place] [address] Medication Refill Social History Tobacco Use Types Packs/Day Years Used Date Smoking Tobacco: Former Cigarettes 0.5 33.2 S tarted: 06/12/1992 Smokeless Tobacco: Never Alcohol Use Standard Drinks/Week Comments Not Currently 0 (1 standard drink = 0.6 oz pur e alcohol) [facility] Utilities Answer Date Recorded In the past 12 months has [employer], gas, oil, or water [employer] threatened to shut off services in your home? No 04/02/2024 Overall Financial Resource Strain (CARDIA) Answe r Date Recorded How hard is it for you to pa y for the very basics like food, housing, medical care, and heating? Not very hard 04/02/2024 PHQ-2 Answer Date Recorded PHQ-2 Total Score 6 10/29/2024 [facility] [place] of Occupat ional Health - Occupational Stress [...] place to sleep or slept in a long-term (including now)? Yes 07/06/2023 [facility] IP Transportation Answer D ate Recorded In [...] Refills Last Filled Start Date End Date clopidogreL (PLAVIX) 75 mg Oral TabletIndications:N STEMI (non-ST elevated myocardial infarction) (HCC) Take 1 Tablet by mouth daily. 30 Tablet 3 07/12/2025 documented in this encounter Plan of Treatment Upcoming Encounters Date Type Department Care Team (Late st Contact Info) Description 09/06/2025 8:15 AM EST Office Visit [facility] Sleep Medicine [address] [place] [phone] Angelic Alexis, TIERCE FILLER [address] [address] 06/17/2026 2:10 PM EDT Office Visit [facility] [address] [address] Damion Boss MD [address] [place] [address] documented as of this encounter Goals Goal Patient Goal Type Associated Problems Recent Progress Patient-Stated? Author Blood Pressure < 140/90 Blood Pressure 132/90(10/30/ 2025 9:29 AM EDT) No Xochitl Mary CCMA [...] of care unspecified documented in this encounter Additional Health Concerns Assessment Noted Time PHQ-9 Depression Total Score: 24 025 8:21 AM EST PHQ-2 Depression Total Score: 6 10/29/19 25 8:21 AM EST documented as of this encounter Care Teams Inspector Raw Quartz Relationship Specialty Start Date End Date Xochitl Lim APRN [address] [place] [address] PCP - General Nurse Practitioner 11/09/23 documented as of this encounter
--- OUTSIDE RECORDS SUMMARY | 2025-09-04 13:17 | XMS_ITS | Encounter Summary ---
Author Organization [place] [address] Care Team Providers Care Psychology Teacher Name Role Phone Xochitl Lim APRN Primary Care Provider [phone]- [phone] Reason for Visit * Reason Comments Medication Refill Encounter Details Date Type Department Care Team (Late st Contact Info) Description 08/29/2025 Refill [facility] [address] [place] [phone] Xochitl Lim APRN [address] [place] [address] Medication Refill Social History Tobacco Use Types Packs/Day Years Used Date Smoking Tobacco: Former Cigarettes 0.5 33.2 S tarted: 06/12/1992 Smokeless Tobacco: Never Alcohol Use Standard Drinks/Week Comments Not Currently 0 (1 standard drink = 0.6 oz pur e alcohol) [facility] Utilities Answer Date Recorded In the past 12 months has [employer], gas, oil, or water [employer] threatened to shut off services in your home? No 04/02/2024 Overall Financial Resource Strain (CARDIA) Answe r Date Recorded How hard is it for you to pa y for the very basics like food, housing, medical care, and heating? Not very hard 04/02/2024 PHQ-2 Answer Date Recorded PHQ-2 Total Score 6 10/29/2024 [facility] [place] of Occupat ional Health - Occupational Stress [...] place to sleep or slept in a [place] (including now)? Yes 07/06/2023 [facility] IP Transportation Answer D ate [...] Refills Last Filled Start Date End Date pantoprazole (PROTONIX) 40 mg Oral Tablet, Delayed Release (E.C.) Take 1 Tablet by mouth twice daily. 60 Tablet 08/30/2025 baclofen (LIORESAL) 10 mg Oral Tablet Take 1 Tablet by mouth 2 times daily as needed for Muscle Spasms. 60 Tablet 1 08/30/2025 documented in this encounter Miscellaneous Notes * Telephone Encounter - Fiona Dahl CPhT - 08/30/2025 9:57 AM EST Pantoprazole Future Visit: N/A Last Assessed Visit: N/A Follow-Up Date: AILIN Appointment protocol failed. One chris supply sent to pharmacy. Routed to Office. Baclofen There is no CRS protocol for this medication.. documented in this encounter Plan of Treatment Upcoming Encounters Date Type Department Care Team (Late st Contact Info) Description 09/06/2025 8:15 AM EST Office [place] [facility] [address] [phone] Angelic Alexis APRN [address] [facility] [address] [place] [address] 06/17/2026 2:10 PM EDT Office Visit [facility] [place] [address] [facility] [place] [phone] Damion Boss MD [address] [place] [address] [place] [address] documented as of this encounter Goals Goal [...] Discontinue Reason Start Date End Da te pantoprazole (PROTONIX) 40 mg Oral Tablet, Delayed Release (E.C.) Take 1 Tablet by mouth twice daily. 02/01/2025 08/30/2025 baclofen (LIORESAL) 10 mg Oral Tablet Take 1 Tablet by mouth 2 times daily as needed for Muscle spasms. 05/16/2025 08/30/2025 documented as of this encounter Additional Health Concerns Assessment Noted Time PHQ-9 Depression Total Score: 24 025 8:21 AM EST PHQ-2 Depression Total Score: 6 10/29/19 25 8:21 AM EST documented as of this encounter Care Teams Psychology Teacher Relationship Specialty Start Date End Date Xochitl Lim APRN [address] [place] [address] PCP - General Nurse Practitioner 11/09/23 documented as of this encounter
--- OUTSIDE RECORDS SUMMARY | 2025-09-04 13:17 | XMS_ITS | Encounter Summary ---
Author Organization [place] [address] Care Team Providers Care Veterans Adviser Name Role Phone Carina Xochitl RIYA Primary Care Provider +1- [phone] Reason for Referral * Durable Medical Equipment (Routine) - Pending Review Specialty Diagnoses / Procedures Referred By Chelsey dubon Referred To Contact Diagnoses Obstructive sleep apnea Procedures AMB SEP CPAP DME Angelic Alexis APRN [address] [place] [address] Phone: tel: fax: Referral ID Status Reason Start Date Expiration Date V isits Requested Visits Authorized [id number] Pending Review 07/24/2025 07/24/2026 1 1 Encounter Details Date Type Department Care Team (Late st Contact Info) Description 07/24/2025 Orders Only [facility] Sleep Medicine [address] [place] [address] Angelic Alexis APRN [address] [place] [address] Obstructive sleep apnea (Primary Dx) Social History Tobacco Use Types Packs/Day Years Used Date Smoking Tobacco: Former Cigarettes 0.5 33.2 S tarted: 06/12/1992 Smokeless Tobacco: Never Alcohol Use Standard Drinks/Week Comments Not Currently 0 (1 standard drink = 0.6 oz pur e alcohol) [facility] Utilities Answer Date Recorded In the past [...] Date Recorded PHQ-2 Total Score 6 10/29/2024 [facility] of Occupat ional Health - [...] a senior care (including now)? Yes 07/06/2023 [facility] CMS IP Transportation Answer D ate Recorded In [...] AM EST Office Visit [facility] Sleep [facility] [address] [place] [address] Angelic Alexis, BAIT DIGGER [address] [place] [address] 06/17/2026 2:10 PM EDT Office Visit SEP [facility] [address] [place] [address] [place] [address] Damion Boss MD [address] [facility] [place] [address] documented as of this encounter Goals Goal [...] as of this encounter Visit Diagnoses Diagnosis Obstructive sleep apnea- Primary Obstructive sleep apnea (adult) (pediatric) documented in this encounter Orders Nursing Count Last Ordered Date First Orde red Date AMB SEP CPAP DME 1 07/24/2025 documented in this encounter Additional Health Concerns Assessment Noted Time PHQ-9 Depression Total Score: 24 025 8:21 AM EST PHQ-2 Depression Total Score: 6 10/29/19 25 8:21 AM EST documented as of this encounter Care Teams Veterans Adviser Relationship Specialty Start Date End Date Xochitl Lim APRN [address] [place] [address] PCP - General Nurse Practitioner 11/09/23 documented as of this encounter
--- OUTSIDE RECORDS SUMMARY | 2025-09-04 13:17 | XMS_ITS | Encounter Summary ---
Author Organization [place] [address] Care Team Providers Care Quill Layer Name Role Phone Carina Xochitl RIYA Primary Care Provider +1- [phone] Reason for Visit * Reason Onset Date Comments Central Order Completion Outreach 08/29/2025 Mammogram Encounter Details Date Type Department Care Team (Late st Contact Info) Description 08/29/2025 Patient Outreach [facility] [address] [place] [address] Xochitl Lim APRN [address] [place] [address] Central Order Completion Outreach (Mammogram) Social History Tobacco Use Types Packs/Day Years Used Date Smoking Tobacco: Former Cigarettes 0.5 33.2 S tarted: 06/12/1992 Smokeless Tobacco: Never Alcohol Use Standard Drinks/Week Comments Not Currently 0 (1 standard drink = 0.6 oz pur e alcohol) [facility] Utilities Answer Date Recorded In [...] Date Recorded PHQ-2 Total Score 6 10/29/2024 [facility] of Occupat ional Health - Occupational Stress [...] to sleep or slept in a senior living (including now)? Yes 07/06/2023 [facility] IP Transportation Answer D ate Recorded In [...] Anitha Padilla MA documented in this encounter Progress Notes * Chikis Izquierdo, PATRICK - 08/29/2025 10:45 AM EST SEP Order Completion Outcome Tracking Contact Attempt:: Final Mammogram Outcome:: Patient Declined Patient declined reason:: Not Interested documented in this encounter Plan of Treatment Upcoming Encounters Date Type Department Care Team (Late st Contact Info) Description 09/06/2025 8:15 AM EST Office Visit [facility] Sleep Medicine [address] [phone] Angelic Alexis, ENVIRONMENTAL PROTECTION SPECIALIST [address] [address] 06/17/2026 2:10 PM EDT Office Visit SE[facility] [address] [address] Damion Boss MD [address] [place] [address] documented as of this encounter Goals Goal [...] documented as of this encounter Care Teams Quill Layer Relationship Specialty Start Date End Date Xochitl Lim APRN [address] [place] [facility] PCP - General Nurse Practitioner 11/09/23 documented as of this encounter
--- OUTSIDE RECORDS SUMMARY | 2025-09-04 13:18 | XMS_ITS | Encounter Summary ---
Author Organization [place] [address] Care Team Providers Care Licensed Guide Name Role Phone Xochitl Lim APRN Primary Care Provider +1- [phone] Encounter Details Date Type Department Care Team (Late st Contact Info) Description 03/01/2025 Results Follow-Up [facility] [address] [place] [phone] Xochitl Lim APRN [address] [place] [address] MOLECULAR VAGINITIS PANEL (MVP), CBC WITH DIFF, COMPREHENSIVE METABOLIC PANEL, Additional followed-up results: 3 Social History Tobacco Use Types Packs/Day Years Used Date Smoking Tobacco: Former Cigarettes 0.5 33.2 S tarted: 06/12/1992 Smokeless Tobacco: Never Alcohol Use Standard Drinks/Week Comments Not Currently 0 (1 standard drink = 0.6 oz pur e alcohol) [facility] Utilities Answer Date Recorded In the past [...] Date Recorded PHQ-2 Total Score 6 10/29/2024 [facility] of Occupat ional Health - Occupational Stress [...] in a fpc (including now)? Yes 07/06/2023 [facility] IP Transportation Answer D ate Recorded [...] AM EST Office Visit [facility] Sleep Medicine [address] [address] Angelic Alexis, RIYA [address] [address] 06/17/2026 2:10 PM EDT Office Visit SEP H&V [address] [address] Damion Boss MD [address] [place] [address] documented as of this encounter Goals Goal Patient Goal Type Associated Problems Recent Progress Patient-Stated? Author Blood Pressure < 140/90 Blood Pressure 132/90(2024 9:29 AM EDT) No Xochitl Mary CCMA BMI (Calculated) < 30 General 41.7(10/22/20 25 1:17 PM EDT) No Xochitl Mary [...] documented as of this encounter Care Teams Licensed Guide Relationship Specialty Start Date End Date Xochitl Lim APRN [address] [place] [address] PCP - General Nurse Practitioner 11/09/23 documented as of this encounter
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
--- OUTSIDE RECORDS SUMMARY | 2025-09-04 13:18 | XMS_ITS | Encounter Summary ---
Author Organization [place] [address] Care Team Providers Care Technology Sales Representative Name Role Phone Xochitl Lim APRN Primary Care Provider [phone]- [phone] Encounter Details Date Type Department Care Team (Late st Contact Info) Description 07/09/2025 Results Follow-Up [facility] [address] [place] [id number] Xochitl Lim APRN [address] [facility] [place] [id number] CBC WITH DIFF, COMPREHENSIVE METABOLIC PANEL, TSH REFLEX TO FT4, Additional followed-up results: 3 Social History Tobacco Use Types Packs/Day Years Used Date Smoking Tobacco: Former Cigarettes 0.5 33.2 S tarted: 06/12/1992 Smokeless Tobacco: Never Alcohol Use Standard Drinks/Week Comments Not Currently 0 (1 standard drink = 0.6 oz pur e alcohol) [facility] Utilities Answer Date Recorded In [...] Date Recorded PHQ-2 Total Score 6 10/29/2024 [facility] [place] of Occupat ional Health - Occupational Stress [...] in a chcf (including now)? Yes 07/06/2023 [facility] IP Transportation Answer D ate Recorded [...] AM EST Office Visit [facility] Sleep Medicine [address] [place] [address] Angelic Alexis, RIYA [address] [phone] 06/17/2026 2:10 PM EDT Office [place] [address] Damion Boss MD [address] [place] [address] documented as of this encounter Goals Goal [...] documented as of this encounter Care Teams Technology Sales Representative Relationship Specialty Start Date End Date Xochitl Lim APRN [address] [facility] [place] [id number] PCP - General Nurse Practitioner 11/09/23 documented as of this encounter
--- OUTSIDE RECORDS SUMMARY | 2025-09-04 13:18 | XMS_ITS | Encounter Summary ---
Author Organization [place] [address] Care Team Providers Care Cement Fittings Maker Name Role Phone Xochitl Lim APRN Primary Care Provider [phone]- [phone] Encounter Details Date Type Department Care Team (Late st Contact Info) Description 07/01/2025 Results Follow-Up [facility] [address] [place] [id number] ChamberlainCarolyn rodriguez, MARINE DRAFTER [address] [place] [address] MICROALBUMIN/CREATIN INE RATIO URINE Social History Tobacco Use Types Packs/Day Years Used Date Smoking Tobacco: Former Cigarettes 0.5 33.2 S tarted: 06/12/1992 Smokeless Tobacco: Never Alcohol Use Standard Drinks/Week Comments Not Currently 0 (1 standard drink = 0.6 oz pur e alcohol) [facility] Utilities Answer Date Recorded In the past 12 months has [employer], gas, oil, or water Cumed threatened to shut off services in your home? No 04/02/2024 Overall Financial Resource Strain (CARDIA) Answe r Date Recorded How hard is it for you to pa y for the very basics like food, housing, medical care, and heating? Not very hard 04/02/2024 PHQ-2 Answer Date Recorded PHQ-2 Total Score 6 10/29/2024 [facility] [place] of Occupat ional Health - Occupational Stress [...] place to sleep or slept in a fci (including now)? Yes 07/06/2023 [facility] IP Transportation Answer D ate Recorded In [...] EST Office Visit [facility] Sleep Medicine [address] [place] [phone] Angelic Alexis, RIYA [address] [place] [phone] 06/17/2026 2:10 PM EDT Office [place] [address] Damion Boss MD [address] [place] [address] documented as of this encounter Goals Goal [...] documented as of this encounter Care Teams Cement Fittings Maker Relationship Specialty Start Date End Date Xochitl Lim APRN [address] [place] [address] PCP - General Nurse Practitioner 11/09/23 documented as of this encounter
--- OUTSIDE RECORDS SUMMARY | 2025-09-04 13:19 | XMS_ITS | CCD ---
Author Organization Unknown Care Team Providers Care Supervisor [employer]ation Name Role Phone Unavailable Primary Care Provider Unavailabl e Unavailable Chronic Care Management Unavaila ble Summary Purpose [employer]Exchange Insurance Providers Payer name Policy type / Coverage type Covered constitution party ID Effective Begin Date Effective End Date MEDICARE [place] [id number] Unknown Family History Family History data not found Medication Administered No Medication Administered data Reason For Visit No Reason For Visit data Medical Equipment No Medical Equipment data Advance Directives No Advance Directive data
[2025-09-04 13:26] VITALS: BP 144/75; PULSE 70; RESP 15; TEMP 36.7; O2SAT 99
== END 2025-09-04 13:26 | disposition home or self-care (01) ==
PROVIDERS: Nurse Practitioner Family; Emergency Provider Student in an Organized Health Care Education/Training Program; PCP Nurse Practitioner
DX: M54.50 Low back pain, unspecified (principal); R11.0 Nausea
CPT/HCPCS: 80053; 81001; 81025; 83690; 85025; 96374; 96375; 99284; J1885; J2360; J2405